=== PATIENT | female | born 1970 | race Caucasian/White ===

== ENCOUNTER 2022-11-27 12:59 | Observation (INO) ==
--- NOTE | 2022-11-27 13:34 | Emergency Department Note ---
History of Present Illness General Chief complaint: Facial Injury/Pain Stated complaint: L SIDE FACIAL PAIN AND SWELLING - TOOTH INFECTED Time Seen by Provider: 11/27/22 13:22 History of Present Illness Maximum Pain Intensity: 7 This is a 52-year-old female that presents to the emergency department via private vehicle with complaints of "left-sided facial pain and swelling, infected tooth". The patient notes that this past Saturday she began with left- sided facial pain and now swelling. She denies any known trauma or injury. She does note trouble eating secondary to pain but is able to tolerate liquids. She was started on penicillin yesterday by her PCP and had 2 tablets yesterday and 1 today. She notes overnight she had increased swelling and pain to the area therefore prompting arrival here today. Current pain 05/27. Home Medications Medication Instructions Recorded Confirmed Type lancets (OneTouch UltraSoft #100 ea 02/09/21 10/05/22 History Lancets) ascorbic acid (vitamin C) 1,000 mg 1 g PO HS 06/15/21 11/27/22 History tablet (Vitamin C) metoprolol succinate 25 mg 75 mg PO HS 08/25/21 11/27/22 History tablet,extended release 24 hr blood sugar diagnostic #300 ea 10/16/21 10/05/22 Rx metformin 500 mg tablet,extended 1,000 mg PO BID #360 tabs 02/09/22 11/27/22 Rx release 24 hr BI-PAP 03/12/22 10/05/22 History cholecalciferol (vitamin D3) 125 125 mcg PO HS 08/29/22 11/27/22 History mcg (5,000 unit) capsule fish,flaxseed oil-e.prim-bcurr 3 cap PO HS 08/29/22 11/27/22 History [Fish, Flax andBorage Oil(Prim)] fluticasone propionate 50 2 spray intranasal DAILY #16 grams 10/05/22 11/27/22 Rx mcg/actuation nasal spray,suspension (Flonase Allergy Relief) levothyroxine 50 mcg tablet 50 mcg PO QAM #90 tabs 10/27/22 11/27/22 Rx (Levoxyl) losartan 50 mg tablet 50 mg PO QAM #90 tabs 11/21/22 11/27/22 Rx penicillin V potassium 500 mg 500 mg PO BID 10 days #20 tabs 11/26/22 11/27/22 Rx tablet tramadol 50 mg tablet 50 mg PO Q8H PRN pain #30 tabs 11/26/22 11/27/22 Rx dulaglutide 0.75 mg/0.5 mL 0.75 mg subcut WK 11/27/22 11/27/22 History subcutaneous pen injector (Trulicity) mecobalamin (vitamin B12) 5,000 5,000 mcg PO QAM 11/27/22 11/27/22 History mcg disintegrating tablet Allergies Allergy/AdvReac Type Severity Reaction Status Date / Time latex Allergy Intermediate Rash Verified 11/27/22 15:35 codeine AdvReac Intermediate hallucinati Verified 11/27/22 15:35 ons Past Med/Surg History Medical History (Updated 11/27/22 @ 16:41 by Gabriel Renner PA-C) Acid reflux Diabetes type 2, uncontrolled Diabetic peripheral neuropathy associated with type 2 diabetes mellitus Diverticulitis Dyslipidemia Hidradenitis suppurativa History of anesthesia reaction BP dropped with endometrial ablation History of COVID-19 diagnosed 2019--mild symptoms, no symptoms now History of kidney stones Hypertension Morbid obesity with BMI of 40.0-44.9, adult TONY (obstructive sleep apnea) bipap at hs Osteoarthritis of knees, bilateral Primary hypothyroidism Surgical History H/O dilation and curettage H/O removal of cyst under R eye History of endometrial ablation History of surgery removal of sweat/hair glands underneath bilateral arms d/t hidradenitis suppurativa History of surgical removal of pilonidal cyst History of wisdom tooth extraction Family History Aunt Breast cancer Grandfather (Maternal) Myocardial infarction Grandmother (Maternal) History of anesthesia reaction Daughter History of anesthesia reaction Denies family history of Ovarian cancer Prostate cancer Colorectal cancer Social History Smoking Status: Current some day smoker Tobacco Type: Cigarettes Age Started Using Tobacco: 15; packs per day: 1; Cigarettes Per Day: 10 a day (advised); Second Hand Exposure: No; Hx Alcohol Use: Yes Alcohol Intake Frequency: Monthly or Less Hx Substance Use: No Preferred Language: Citizen Of [place] Communication Ability: Effective Visual Impairment: No Limitations Hearing Ability: Hard of Hearing Printing Assistant Required: No Beliefs That Will Affect Care: None marital status: Current Living Situation: Family Current Living Situation Comment: lives with , son, daughter, daughter's boyfriend current occupational status: unemployed Feels Safe at Home: Yes Childhood Exposure to Second-Hand Smoke: Yes caffeine: Yes during the past year weight has: remained stable Dental Care, Regularly: No Physical Activity Frequency: Daily Seatbelt Use: always Sunscreen Use: No Assistive Devices: BiPap and Glasses Review of Systems A total of 10 systems reviewed and were otherwise negative Physical Exam Vital Signs Vital Signs - 24 hr 11/27/22 13:05 11/27/22 15:51 11/27/22 16:30 Temperature 36.4 C L Temperature Source Temporal Artery Scan Pulse Rate 104 H Pulse Rate [Right Finger] 82 94 H Pulse Rhythm Regular Respiratory Rate 22 18 20 Respiratory Effort / Characteristics Non-Labored Spontaneous Non-Labored Spontaneous Non-Labored Spontaneous Respiratory Depth Normal Normal Normal Respiratory Pattern Regular Regular Blood Pressure 186/101 H Blood Pressure [Right Arm] 149/90 H 154/99 H Blood Pressure Mean 129 Blood Pressure Mean [Right Arm] 109 117 Blood Pressure Position [Right Arm] Sitting Sitting Pulse Oximetry 97 95 99 Oxygen Delivery Method Room Air Room Air Room Air Sepsis Recent Fever Within 48 Hours No Sepsis New/Unexplained Change in Mental Status No Sepsis Action Taken by Nursing No Action Required VITAL SIGNS - Vital signs and nursing notes were reviewed. Hypertensive, otherwise stable. GENERAL -52-year-old female appearing her stated age who is in no acute distress. Communicates well with provider and answers questions appropriately. SKIN - Without rashes. No meningeal or petechial rash. Left-sided facial edema noted. No erythema. HEAD - NC/AT. EYES - PERRL with EOMI bilaterally. Sclera anicteric. EARS - No deformities of external structures noted on gross examination bilaterally. No pain elicited with palpation of the tragus bilaterally. External auditory canals without discharge or otorrhea. Tympanic membranes pearly cruz without retraction or bulging. No fluid or purulent material visualized behind the TM. Handle of malleus, umbo, cone of light, pars tensa/flaccid all easily visualized. NOSE - Midline and without cyanosis. No epistaxis or purulent drainage noted. Septum midline without deviation or septal hematoma noted. MOUTH/OROPHARYNX - Without perioral cyanosis. Buccal mucosa pink and moist and without leukoplakia. Tongue midline with equal elevation of palate bilaterally. No tonsillar hypertrophy, erythema, or exudates noted. Poor dentition noted. Left upper dentition with multiple caries noted and decay. NECK - Neck with FROM. No evidence of Daniel's angina. No nuchal rigidity. LUNGS - Chest wall symmetric without accessory muscle use, intercostals retractions, or central cyanosis. Normal vesicular breath sounds CTA B/L. No wheezes, rales, or rhonchi appreciated. CARDIAC - RRR with S1/S2. No murmur, rubs, or gallops appreciated. EXTREMITIES - No clubbing or peripheral cyanosis. +5/5 strength noted in UE/LE bilaterally. NEUROLOGIC - Cranial nerves II through XII grossly intact. PSYCH - A&O, and cooperates fully with examiner. Pt is very pleasant and interacts well with examiner. Course Administered Medications Discontinued Medications Acetaminophen (Acetaminophen 500 Mg Tab) 500 mg PO NOW STA Stop: 11/27/22 14:41 Last Admin: 11/27/22 14:44 Dose: 500 mg Documented By: GABRIELA Ampicillin Sodium/Sulbactam Sodium 3,000 mg/ Sodium Chloride 108 mls @ 200 mls/hr IV NOW STA; Protocol Stop: 11/27/22 15:57 Last Infusion: 11/27/22 17:01 Dose: 0 mls/hr Documented By: Admin: 11/27/22 16:15 Dose: 200 mls/hr Documented By: MUKESH Sodium Chloride (Nss 1000ml) 1,000 mls @ 999 mls/hr IV .Q1H1M BHUPENDRA Stop: 11/27/22 16:30 Last Infusion: 11/27/22 17:01 Dose: 0 mls/hr Documented By: Admin: 11/27/22 15:48 Dose: 999 mls/hr Documented By: MUKESH Ioversol (Optiray 350 100ml) 88 ml IV ONCE ONE Stop: 11/27/22 15:22 Last Admin: 11/27/22 15:22 Dose: 88 ml Documented By: DARRIUS Morphine Sulfate (Morphine Sulfate 4 Mg/Ml 1 Ml Carp\\Vial) 4 mg IV NOW STA Stop: 11/27/22 16:29 Last Admin: 11/27/22 16:53 Dose: 4 mg Documented By: VADIM Medical Decision Making Laboratory Data 11/27/22 13:50 11/27/22 13:50 Lab Results 11/27/22 11/27/22 11/27/22 Range/Units 13:50 13:50 15:59 WBC 15.05 H (4.8-10.8) K/ul RBC 4.34 (3.93-5.22) M/uL Hgb 14.0 (12.0-16.0) g/dl Hct 41.6 (34.1-44.9) % MCV 95.9 (80.0-100.0) fL MCH 32.3 (25.0-34.0) pg MCHC 33.7 (32.0-36.0) g/dL RDW Std Deviation 45.7 (36.4-46.3) fL RDW Coeff of Rui 13.0 (11.5-14.5) % Plt Count 345 (130-400) K/uL MPV 10.3 (9.4-12.3) fL Immature Gran % (Auto) 0.4 % Neut % (Auto) 65.1 % Lymph % (Auto) 25.2 % [place] % (Auto) 6.9 % Eos % (Auto) 1.9 % Baso % (Auto) 0.5 % Neut # (Auto) 9.79 H (1.4-6.5) K/uL Lymph # (Auto) 3.80 H (1.2-3.4) K/uL [place] # (Auto) 1.04 H (0.24-0.82) K/uL Eos # (Auto) 0.29 (0-0.50) K/uL Baso # (Auto) 0.07 (0-0.2) K/uL Immature Gran # (Auto) 0.06 H (0.00-0.02) K/uL Sodium 138 (136-145) mmol/L Potassium 4.0 (3.5-5.1) mmol/L Chloride 102 (98-107) mmol/L Carbon Dioxide 26 (21-32) mmol/L Anion Gap 10 (3-11) BUN 11 (6-23) mg/dl Creatinine 0.81 (0.6-1.2) mg/dl Est Cr Clr Drug Dosing 115.0 ml/min Est GFR ( Amer) 98.2 ml/min Est GFR (Non-Af Amer) 84.7 ml/min BUN/Creatinine Ratio 13.6 (10-20) Glucose 167 H (70-99(Fasting)) mg/dl Calcium 10.2 H (8.5-10.1) mg/dl Total Bilirubin 0.4 (0.2-1.0) mg/dl AST 20 (13-39) U/L ALT 38 (7-52) U/L Alkaline Phosphatase 66 (34-104) U/L Total Protein 8.8 H (6.0-8.3) gm/dl Albumin 4.0 (3.4-5.0) gm/dl Globulin 4.8 H (2.5-4.0) gm/dl Albumin/Globulin Ratio 0.8 L (0.9-2) SARS-CoV-2, RNA, NAAT NEGATIVE (NEGATIVE) Imaging Data Radiologist's Impression: Face CT 11/27/22 13:[address] WITH CONTRAST CLINICAL HISTORY: Left sided facial edema, pain. COMPARISON STUDY: Facial CT April 24, 2020. TECHNIQUE: Axial images of the face were obtained following intravenous injection of 88 cc of Optiray 350 IV. Sagittal and coronal reconstructions were viewed. Automated exposure control was utilized for the study. A dose lowering technique was utilized adhering to the principles of ALARA. FINDINGS: Visualized portions of the intracranial contents are unremarkable. Major vasculature of the upper neck is patent. Several mildly enlarged left cervical lymph nodes are likely reactive. Index left level 2 node measures 1.7 x 1.3 cm. Extensive odontogenic disease is noted with numerous dental caries and periapical abscesses. Multiple teeth are absent. There is a 9 mm periapical abscess of the left lateral maxillary incisor with an associated 1 cm rim- enhancing fluid collection with adjacent stranding consistent with an abscess. No additional soft tissue abscesses are present. The epiglottis is normal. IMPRESSION: Extensive odontogenic disease with numerous dental caries and periapical abscesses. Periapical abscess of the left lateral maxillary incisor with an adjacent 1 cm soft tissue abscess and associated cellulitis. ACT 112: Negative or not required by law. Electronically signed by: Mansoor Melo M.D. 11/27/2022 3:45 PM [facility] Narrative Patient was seen and evaluated as above in room D04. Review was performed of triage nursing notes and vital signs. I did review pertinent previous visits and patient history. After obtaining a thorough history and physical examination the above work up was performed. Patient presents to us today with left-sided facial pain and swelling. She is worried this is coming from her teeth. On examination there is edema present o verlying the left anterior face as well as reproducible tenderness to palpation overlying this region. The patient denies any fevers. She does note decreased appetite and food intake secondary to pain. She was started on penicillin yesterday and notes worsening swelling and pain overnight. Options of care were discussed with the patient. IV access was established. Labs were drawn. CT scan was obtained of the face. This reveals extensive odontogenic disease with numerous dental caries and periapical abscesses. Periapical abscess of the left lateral maxillary incisor with an adjacent 1 cm soft tissue abscess and associated cellulitis. There is leukocytosis 15.05. No anemia. No emergent metabolic disturbance. Hyperglycemia 167. At this time I do believe that inpatient management for left-sided facial cellulitis is reasonable. IV Unasyn was ordered as well as IV fluids. She was ordered oral acetaminophen for pain. I did verify she has not taken more than 3000 mg in the past 24 hours. She notes she only had 2 tablets shortly after midnight this past evening. I did discuss the case with the hospitalist service. Please refer to further documentation regarding her stay. GCS: 15 In the evaluation and treatment of this patient, the following differential diagnoses were considered: Periapical Abscess, Osteonecrosis of the Jaw, Dental Fracture, Dental Caries, Daniel's Angina, Vincent's Angina, Facial Cellulitis, among others. Impression & Plan Facial cellulitis, Abscess of face Discharge Plan Visit Data Chief Complaint: Facial Injury/Pain Stated Complaint: L SIDE FACIAL PAIN AND SWELLING - TOOTH INFECTED ED Provider: Layton Katz ED Midlevel Provider: Carlton Sorto Discharge Problem: Facial cellulitis, Abscess of face Patient Disposition: Admitted As Inpatient Condition: Good Discharge Instructions Interventions: ED Discharge Assessment Last Done: 11/27/22 17:25
[2022-11-27 14:34] LABS: Basophils # (auto) 0.07 K/uL (0-0.2); Basophils % (auto) 0.5 %; Eosinophils # (auto) 0.29 K/uL (0-0.50); Eosinophils % (auto) 1.9 %; Hematocrit (blood only) 41.6 % (34.1-44.9); Immature Granulocytes # (auto) 0.06 K/uL (0.00-0.02); Immature Granulocytes % (auto) 0.4 %; Lymphocytes % (auto) 25.2 %; Mean Corpuscular Hemoglobin 32.3 pg (25.0-34.0); Mean Corpuscular Hgb Conc 33.7 g/dL (32.0-36.0); Mean Corpuscular Volume 95.9 fL (80.0-100.0); Mean Platelet Volume 10.3 fL (9.4-12.3); Monocytes # (auto) 1.04 K/uL (0.24-0.82); Monocytes % (auto) 6.9 %; Neutrophils # (auto) 9.79 K/uL (1.4-6.5); Neutrophils % (auto) 65.1 %; Platelet Count 345 K/uL (130-400); RDW Standard Deviation 45.7 fL (36.4-46.3); Red Blood Count 4.34 M/uL (3.93-5.22); White Blood Count 15.05 K/ul (4.8-10.8)
[2022-11-27] MEDS ORDERED: ACETAMINOPHEN 500 MG TAB PO STA (14:40)
[2022-11-27 14:56] LABS: Albumin Globulin Ratio 0.8 (0.9-2); BUN Creatinine Ratio 13.6 (10-20); Bilirubin,Total 0.4 mg/dl (0.2-1.0); Calcium 10.2 mg/dl (8.5-10.1); Est GFR (African American) 98.2 ml/min; Est GFR (Non-African American) 84.7 ml/min; Globulin 4.8 gm/dl (2.5-4.0); Total Protein 8.8 gm/dl (6.0-8.3)
[2022-11-27] MEDS ORDERED: OPTIRAY 350 100ml IV ONE (15:21)
[2022-11-27] MEDS ORDERED: AMPICILLIN/SULBACTAM SOD 3,000 MG in 0.9 % SODIUM CHLORIDE 100 ML IV STA (15:25)
[2022-11-27] MEDS ORDERED: SODIUM CHLORIDE 0.9% 1000ML 1,000 ML IV SCH (15:30)
--- NOTE | 2022-11-27 15:46 | CT Scan Report ---
FACIAL CT WITH CONTRAST CLINICAL HISTORY: Left sided facial edema, pain. COMPARISON STUDY: Facial CT April 24, 2020. TECHNIQUE: Axial images of the face were obtained following intravenous injection of 88 cc of Optiray 350 IV. Sagittal and coronal reconstructions were viewed. Automated exposure control was utilized fo r the study. A dose lowering technique was utilized adhering to the principles of ALARA. FINDINGS: Visualized portions of the intracranial contents are unremarkable. Major vasculature of the upper neck is patent. Several mildly enlarged left cervical lymph nodes are likely reactive. Index l eft level 2 node measures 1.7 x 1.3 cm. Extensive odontogenic disease is noted with numerous dental c valeria and periapical abscesses. Multiple teeth are absent. There is a 9 mm periapical abscess of the left lateral maxillary incisor with an associated 1 cm rim-enhancing fluid collection with adjacent s tranding consistent with an abscess. No additional soft tissue abscesses are present. The epiglottis is normal. IMPRESSION: Extensive odontogenic disease with numerous dental caries and periapical abscesses. Peria pical abscess of the left lateral maxillary incisor with an adjacent 1 cm soft tissue abscess and ass ociated cellulitis. ACT 112: Negative or not required by law. Electronically signed by: Mansoor Melo M.D. 11/27/2022 3:45 PM
[2022-11-27] MEDS ORDERED: MoRPHine SULFATE 4 MG/ML 1 ML CARP\\VIAL IV STA (16:28)
--- NOTE | 2022-11-27 16:34 | History & Physical Report ---
Date of Service November 27, 2022 Assessment & Plan (1) Facial cellulitis: Plan: -Admit to med/tele -The patient is currently afebrile, hemodynamically stable, and stable on RA -Patient noted to have very poor dental hygiene and presented to her PCP yesterday with left facial and dental pain, was started on Penicillin V and tramadol but her pain continued to progress -In the ED today she was noted to have multiple dental caries and a 1 cm lateral maxillary incisor on CT with an elevated white count -S/P one dose of unasyn, tylenol, and 1L NSS bolus in the ED -ENT consulted and will see the patient shortly, agrees with continuing Unasyn and NPO at midnight for OR tomorrow -Pain control with scheduled tylenol as needed for fever/pain (1,2,3), morphine 2mg IV q4h prn pain (4,5,6+) -Will give her one bag of LR when she is NPO at midnight to ensure she is hydrated with recent poor oral intake -AM CBC and CMP (2) Diabetes type 2, uncontrolled: Plan: -Hold Trulicity and metformin -Monitor BSG q6h overnight since she will be NPO for the OR tomorrow -Goal BSG is 110-140 -Will start with 5 units lantus BID for basal coverage -Correction factor of 35 and carb ration of 12 q6h -Adjust as needed -Last A1c was 8.2 on 08/15/22, will order am A1c to continue monitoring (3) Tobacco dependence due to cigarettes: Plan: -Still smoking 1PPD -Encourage cessation -Denies nicotine patches at this time, will order them now in case she changes her mind (4) Dyslipidemia: Plan: -continue statin (5) Primary hypothyroidism: Plan: -Continue levothyroxine (6) TONY (obstructive sleep apnea): Plan: -Normally wears HS bipap but unable to tolerate at this time due to her pain and swelling, will hold for now (7) Hypertension: Plan: -Hemodynamically stable -Continue metoprolol -Will hold losartan for now to prevent hypotension, can resume after her procedure tomorrow if needed (8) Acid reflux: Plan: -IV Protonix daily while admitted for stress ulcer prophylaxis Plan The patient was discussed with Dr. Kuo at the time of the admission History of Present Illness Chief Complaint: Left facial/dental pain Primary Care Provider: Purvi AngeloDO Tiffanie kirkland is a 52 year old female with a PMH significant for Hypothyroidism, TONY, HTN, dyslipidemia, DM II, tobacco use disorder, and morbid obesity who presented to the [facility] on 11/27/22 with a chief complaint of worsening left-sided facial pain/dental pain. In the ED the patient was found to be afebrile, hemodynamically stable, and stable on RA. Labs were significant for a leukocytosis of 15 with absolute neutrophils of 9.79, stable Hgb and platelets, stable cr at 0.81, calcium of 10.2 otherwise stable electrolytes, stable liver function, and covid negative. CT of the face with contrast was read as "Extensive odontogenic disease with numerous dental caries and periapical abscesses. Periapical abscess of the left lateral maxillary incisor with an adjacent 1 cm soft tissue abscess and associated cellulitis.". Prior to admission the patient was given one dose of Unasyn, 500 mg PO tylenol, and 1L NSS. ENT was consulted by the ED and recommended medicine admission for IV antibiotics overnight and OR likely tomorr ow. Per chart review, the patient was seen at her PCP's office yesterday for the same complaint. She was started on Penicillin V and advised to go to the ER if her symptoms worsened despite antibiotic therapy. At the time of the exam the patient was resting comfortably in bed in no acute distress with her sitting bedside. She states that she started to develop pain and swelling over the upper left teeth which has continued to progress and move further up her left cheek. She confirms that she saw her PCP yesterday and did take two doses of the Penicillin V since yesterday. She states that the swelling and pain continued to worsen, which is why she presented to the ED. She states that her pain is currently a 2-3/10 after recently ordering 4 mg IV morphine ordered by the ED. She denies recent fevers, chills, headache, changes in vision, hearing, taste, and smell, chest pain, SOB, cough, abd pain, nausea, vomiting, diarrhea, dysuria, hematuria, and recent falls. She is still smoking approximately 1 pack of cigarettes daily. I spoke to she and her regarding code status, she wishes to be a Full Code. She would want her to make decisions for her if she could not make them herself. Please refer to Dr. Kuo's attestation for any changes to the treatment plan Allergies Allergy/AdvReac Type Severity Reaction Status Date / Time latex Allergy Intermediate Rash Verified 11/27/22 15:35 codeine AdvReac Intermediate hallucinati Verified 11/27/22 15:35 ons Home Medications Medication Instructions Recorded Confirmed Type lancets (OneTouch UltraSoft #100 ea 02/09/21 11/30/22 History Lancets) ascorbic acid (vitamin C) 1,000 mg 1 g PO HS 06/15/21 11/30/22 History tablet (Vitamin C) metoprolol succinate 25 mg 75 mg PO HS 08/25/21 11/30/22 History tablet,extended release 24 hr blood sugar diagnostic #300 ea 10/16/21 11/30/22 Rx metformin 500 mg tablet,extended 1,000 mg PO BID #360 tabs 02/09/22 11/30/22 Rx release 24 hr BI-PAP 03/12/22 11/30/22 History cholecalciferol (vitamin D3) 125 125 mcg PO HS 08/29/22 11/30/22 History mcg (5,000 unit) capsule fish,flaxseed oil-e.prim-bcurr 3 cap PO HS 08/29/22 11/30/22 History [Fish, Flax andBorage Oil(Prim)] fluticasone propionate 50 2 spray intranasal DAILY #16 grams 10/05/22 11/30/22 Rx mcg/actuation nasal spray,suspension (Flonase Allergy Relief) levothyroxine 50 mcg tablet 50 mcg PO QAM #90 tabs 10/27/22 11/30/22 Rx (Levoxyl) losartan 50 mg tablet 50 mg PO QAM #90 tabs 11/21/22 11/30/22 Rx tramadol 50 mg tablet 50 mg PO Q8H PRN pain #30 tabs 11/26/22 11/30/22 Rx dulaglutide 0.75 mg/0.5 mL 0.75 mg subcut WK 11/27/22 11/30/22 History subcutaneous pen injector (Trulicity) mecobalamin (vitamin B12) 5,000 5,000 mcg PO QAM 11/27/22 11/30/22 History mcg disintegrating tablet amoxicillin 875 mg-potassium 1 tab PO Q12H facial infection #20 11/29/22 11/30/22 Rx clavulanate 125 mg tablet tabs chlorhexidine gluconate 0.12 % 15 ml MT BID PRN mouth rinse #0 mL 11/29/22 11/30/22 Rx mouthwash hydrocodone 5 mg-acetaminophen 325 1 tab PO Q4H PRN pain #10 tabs 11/29/22 11/30/22 Rx mg tablet Past Med/Surg History Medical History (Updated 11/29/22 @ 12:37 by Maame Bhatia PA-C) Acid reflux Diabetes type 2, uncontrolled Diabetic peripheral neuropathy associated with type 2 diabetes mellitus Diverticulitis Dyslipidemia Hidradenitis suppurativa History of anesthesia reaction BP dropped with endometrial ablation History of COVID-19 diagnosed 2020--mild symptoms, no symptoms now History of kidney stones Hypertension Morbid obesity with BMI of 40.0-44.9, adult TONY (obstructive sleep apnea) bipap at hs Osteoarthritis of knees, bilateral Primary hypothyroidism Surgical History (Updated 11/28/22 @ 10:06 by Betty Lema RN) H/O dilation and curettage H/O removal of cyst under R eye History of endometrial ablation History of surgery removal of sweat/hair glands underneath bilateral arms d/t hidradenitis suppurativa History of surgical removal of pilonidal cyst History of wisdom tooth extraction Hx of oral surgery (11/28/22) p Incision and Drainage left nasolabial(upper) and lower subperiosteal abscess Removal of teeth 6,7,8,9,10,11,12 and lower teeth 21,22,23,24,25,26,27,28 Family History Aunt Breast cancer Grandfather (Maternal) Myocardial infarction Grandmother (Maternal) History of anesthesia reaction difficulty waking Daughter History of anesthesia reaction under local anesthesia for repair of nerve in her finger--"went unresponsive and had no neurological function for 20 min" ???, slowly came out it Denies family history of Ovarian cancer Prostate cancer Colorectal cancer Social History Smoking Status: Current every day smoker Tobacco Type: Cigarettes Age Started Using Tobacco: 15; packs per day: 1; Cigarettes Per Day: 10 a day (advised); Second Hand Exposure: Yes; Hx Alcohol Use: Yes Alcohol type: beer Alcohol Intake Frequency: Monthly or Le ss Hx Substance Use: No Preferred Language: Welsh Communication Ability: Effective Visual Impairment: No Limitations Hearing Ability: Hard of Hearing Donor Technician Required: No Beliefs That Will Affect Care: None marital status: Current Living Situation: Spouse and Family Current Living Situation Comment: lives with , son, daughter, daughter's boyfriend current occupational status: unemployed Feels Safe at Home: Yes Childhood Exposure to Second-Hand Smoke: Yes caffeine: Yes during the past year weight has: remained stable Dental Care, Regularly: No Physical Activity Frequency: Daily Seatbelt Use: always Sunscreen Use: No Assistive Devices: None Review of Systems Review of Systems: Denies current fever, chills, headache, changes in vision, hearing, taste, and smell, chest pain, SOB, cough, abdominal pain, nausea, vomiting, diarrhea, hematemesis, melena, dysuria, hematuria, and recent falls. All systems have been reviewed and are otherwise negative. Physical Exam Physical Exam: Physical Exam: General: In no acute distress, stated age, chronically ill-appearing, poor hygiene, non-toxic appearing HEENT: Patient with swelling and erythema noted on the left cheek/upper lip which is warm and tender to palpation, multiple dental caries noted throughout the upper and lower jaw, pupils around round, symmetrical, and reactive to light, moist mucus membranes, trachea midline, no thyromegaly Chest/Pulm: No respiratory distress, symmetrical chest expansion, expiratory wheezing noted throughout Cardiac: RRR, no murmurs noted Abdomen: Negative for ascites and bruising, normoactive bowel sounds, soft, non-tender to palpation throughout Musculoskeletal: Symmetrical and without signs of acute trauma, upper and lower extremities with full ROM, no atrophy, spasticity, or flaccidity Extremities: Radial, dorsalis pedis, and posterior tibial pulses are intact and symmetrical, no edema noted in the BL LE's Skin: Warm, dry, no rashes , lesions, or scars noted Neuro: Alert and oriented to person, place, month, year, and president, no focal defects, CN II-XII tested and intact, finger to nose test negative, no tremors noted Psych: No acute distress, calm and cooperative during the exam Results & Data Results & Data ([facility]) Vital Signs (Past 12 Hours) Vital Signs Temp Pulse Pulse Resp BP BP Pulse Ox 11/27/22 15:51 82 18 149/90 H 95 11/27/22 13:05 36.4 C L 104 H 22 186/101 H 97 O2 Del Method 11/27/22 15:51 Room Air 11/27/22 13:05 Room Air Laboratory Results Abnormal lab results 11/27/22 11/27/22 Range/Units 13:50 13:50 WBC 15.05 H (4.8-10.8) K/ul Neut # (Auto) 9.79 H (1.4-6.5) K/uL Lymph # (Auto) 3.80 H (1.2-3.4) K/uL [place] # (Auto) 1.04 H (0.24-0.82) K/uL Immature Gran # (Auto) 0.06 H (0.00-0.02) K/uL Glucose 167 H (70-99(Fasting)) mg/dl Calcium 10.2 H (8.5-10.1) mg/dl Total Protein 8.8 H (6.0-8.3) gm/dl Globulin 4.8 H (2.5-4.0) gm/dl Albumin/Globulin Ratio 0.8 L (0.9-2) Diagnostic Findings Face CT 11/27/22 13:[address] WITH CONTRAST CLINICAL HISTORY: Left sided facial edema, pain. COMPARISON STUDY: Facial CT April 24, 2020. TECHNIQUE: Axial images of the face were obtained following intravenous injection of 88 cc of Optiray 350 IV. Sagittal and coronal reconstructions were viewed. Automated exposure control was utilized for the study. A dose lowering technique was utilized adhering to the principles of ALARA. FINDINGS: Visualized portions of the intracranial contents are unremarkable. M ajor vasculature of the upper neck is patent. Several mildly enlarged left cervical lymph nodes are likely reactive. Index left level 2 node measures 1.7 x 1.3 cm. Extensive odontogenic disease is noted with numerous dental caries and periapical abscesses. Multiple teeth are absent. There is a 9 mm periapical abscess of the left lateral maxillary incisor with an associated 1 cm rim- enhancing fluid collection with adjacent stranding consistent with an abscess. No additional soft tissue abscesses are present. The epiglottis is normal. IMPRESSION: Extensive odontogenic disease with numerous dental caries and periapical abscesses. Periapical abscess of the left lateral maxillary incisor with an adjacent 1 cm soft tissue abscess and associated cellulitis. ACT 112: Negative or not required by law. Electronically signed by: Mansoor Melo M.D. 11/27/2022 3:45 PM ECG Additional Comments: ECG ordered on admission, will follow up when completed Code Status & VTE Plan Code Status Full code VTE Prophylaxis Plan VTE Prophylaxis will be ordered: Yes Supervising Physician Co-Signing Physician Notes I personally saw and examined the patient. I verified all wheeler points and agree with Gabriel Renner PA-C with the following exceptions and/or additions: 52 year old female admission for left facial cellulitis with 1cm soft tissue abscess seen on CT face. O/E A&Ox3, non septic appearing, poor dental dentition with multiple cavities, left sided facial swelling and erythema from lip to below eyelid and around cheek, HS1+2, no murmurs, Chest CTAB, Abdo SNT A/P Facial cellulitis, periapical abscess, facial abscess - Unasyn IV 3g q6h, consult ENT, NPO after midnight PG Care Time/CCT Total # of Minutes Spent Total Time Spent with Patient: Total time spent is greater than 50% in coordination of care (as documented) at patient's floor/unit and/or counseling patient: Coding [place] [address] INT INP/OBS CARE 2/55MIN Patient Type Established Medical Decision Making High Complexity Diagnoses Facial cellulitis L03.211 Diabetes type 2, uncontrolled E11.65 Tobacco dependence due to cigarettes F17.210 Dyslipidemia E78.5 Primary hypothyroidism E03.9 TONY (obstructive sleep apnea) G47.33 Hypertension I10 Acid reflux K21.9
[2022-11-27] MEDS ORDERED: GLUCOSE 40% GEL 15 GM TUBE PO PRN (17:52)
[2022-11-27] MEDS ORDERED: DEXTROSE 50% 50 ML SYRINGE IV PRN (17:52)
[2022-11-27] MEDS ORDERED: CARBOHYDRATES FOR HYPOGLYCEMIA PO PRN (17:52)
[2022-11-27] MEDS ORDERED: GLUCOSE 10 TAB/TUBE PO PRN (17:52)
[2022-11-27] MEDS ORDERED: GLUCAGON FOR INJ 1 MG VIAL SQ PRN (17:52)
[2022-11-27] MEDS: MoRPHine SULFATE 2 MG/ML CARP IV PRN (20:17)
[2022-11-27] MEDS: ASCORBIC ACID 500 MG TAB PO SCH (20:17)
[2022-11-27] MEDS: METOPROLOL SUCC 25MG EXT REL TAB PO SCH (20:18)
[2022-11-27] MEDS: CHOLECALCIFEROL 5,000 UNITS 125 MCG TAB PO SCH (20:18)
[2022-11-27] MEDS: INSULIN ASPART PER UNIT SC SCH (20:30)
[2022-11-27] MEDS: LANTUS PER UNIT CHARGE SQ SCH (20:30)
[2022-11-27] MEDS: AMPICILLIN/SULBACTAM SOD 3,000 MG in 0.9 % SODIUM CHLORIDE 100 ML IV SCH (22:49)
[2022-11-28] MEDS ORDERED: LACTATED RINGER'S 1,000 ML IV SCH
[2022-11-28] MEDS: INSULIN ASPART PER UNIT SC SCH ×6 (00:27→20:56)
--- NOTE | 2022-11-28 00:35 | Oral/Maxillofacial Consult ---
Date of Consultation November 28, 2022 Assessment & Plan (1) Facial cellulitis: (2) Abscess of face: (3) Diabetes type 2, uncontrolled: (4) TONY (obstructive sleep apnea): History of Present Illness Attending Physician: Charan Kuo MD History of Present Illness Oral Maxillofacial Surgery Exam Present Complaint: I have pain/swelling/drainage from my infected upper teeth. Symptoms have been ongoing for a while started on Saturday now upper lip swollen and very painful. 1) Facial cellulitis: Plan: -Admit to med/tele -The patient is currently afebrile, hemodynamically stable, and stable on RA -Patient noted to have very poor dental hygiene and presented to her PCP yesterday with left facial and dental pain, was started on Penicillin V and tramadol but her pain continued to progress -In the ED today she was noted to have multiple dental caries and a 1 cm lateral maxillary incisor on CT with an elevated white count -S/P one dose of Unasyn, Tylenol, and 1L NSS bolus in the ED -OMS consulted and will see the patient shortly, agrees with continuing Unasyn and NPO at midnight for OR tomorrow -Pain control with scheduled Tylenol as needed for fever/pain (1,2,3), morphine 2mg IV q4h prn pain (4,5,6+) -Will give her one bag of LR when she is NPO at midnight to ensure she is hydrated with recent poor oral intake -AM CBC and CMP (2) Diabetes type 2, uncontrolled: Plan: -Hold Trulicity and metformin -Monitor BSG q6h overnight since she will be NPO for the OR tomorrow -Goal BSG is 110-140 -Will start with 5 units lantus BID for basal coverage -Correction factor of 35 and carb ration of 12 q6h -Adjust as needed -Last A1c was 8.2 on 08/15/22, will order am A1c to continue monitoring (3) Tobacco dependence due to cigarettes: Plan: -Still smoking 1PPD -Encourage cessation -Denies nicotine patches at this time, will order them now in case she changes her mind (4) Dyslipidemia: Plan: -continue statin (5) Primary hypothyroidism: Plan: -Continue levothyroxine (6) TONY (obstructive sleep apnea): Plan: -Normally wears HS bipap but unable to tolerate at this time due to her pain and swelling, will hold for now (7) Hypertension: Plan: -Hemodynamically stable -Continue metoprolol -Will hold losartan for now to prevent hypotension, can resume after her procedure tomorrow if needed (8) Acid reflux: Plan: -IV Protonix daily while admitted for stress ulcer prophylaxis Plan admission on mediacl service, IV antibiotics, for OR to drain upper lip abscess and extraction of grossly carious teeth. Oral Exam: Finding--Grossly infected teeth, tender and swollen gingival tissue with deep pocket formation.Teeth are grossly decayed and removal is medically necessary to control the infection Imaging: Face CT 11/27/22 13:[address] WITH CONTRAST CLINICAL HISTORY: Left sided facial edema, pain. FINDINGS: Visualized portions of the intracranial contents are unremarkable. Major vasculature of the upper neck is patent. Several mildly enlarged left cervical lymph nodes are likely reactive. Index left level 2 node measures 1.7 x 1.3 cm. Extensive odontogenic disease is noted with numerous dental caries and periapical abscesses. Multiple teeth are absent. There is a 9 mm periapical abscess of the left lateral maxillary incisor with an associated 1 cm rim-enhancing fluid collection with adjacent stranding consistent with an abscess. No additional soft tissue abscesses are present. The epiglottis is normal. IMPRESSION: Extensive odontogenic disease with numerous dental caries and periapical abscesses. Periapical abscess of the left lateral maxillary incisor with an adjacent 1 cm soft tissue abscess and associated cellulitis. Soft tissue: floor of the mouth, tongue, hard/soft palate, posterior pharyngeal area all with in normal limits, no pathology or abnormal findings noted. Upper mucobuccal fold is swollen, severe periodontal disease. Oral Care: Overall oral care is very poor Occlusion: Class I with missing teeth TMJ exam: No pop, clicking, pain, good ROM, No history of TMJ injury or dysfunction Periodontal exam: There is evidence of significant periodontal pathology. Head/Neck exam: Neck is supple, FROM, Able to extend and flex neck w/o difficulty, no masses, no abnormalities, no airway issues, there is evidence of sleep apnea use of Bi PAP Treatment Plan: Admission and medical w/up To OR in Am to drain the complex mucobuccal fold infection with extraction of the associated teeth Set up with general anesthesia in hospital due to complexity of the procedure NPO 12 midnight I reviewed the treatment plan and consent with the patient and Understanding was expressed. Time was given for questions regarding the surgery, risks and post op care. Discussed alternative to treatment--procedure as planned, Do not do surgery The following teeth are decayed and fractured and removal is indicated CHER: Upper teeth #3,5,7,8,9,10,12 Lower teeth #20,21,23,24,25,26,28,29 Risks discussed: Bleeding,Pain,swelling,infection, dry socket, delayed healing, nerve injury to face,lips,tongue,chin area which could be permanent (rare). TMJ, jaw stiffness, change in bite (rare), ear pain (referred). Sinus problems like fistula or infection. Need to leave a small root fragment in place to avoid injury to nerve or sinus. Relationship of wisdom teeth to nerve/sinus and risk of jaw fracture. Home care reviewed: tooth brushing, rinsing, follow up care with Dr Delacruz. diet=[id number] dental. Discussed activity level, driving/work while on Rx pain Meds. Surgery to be set up for November 28 at 7:30 with [facility] Allergies Allergy/AdvReac Type Severity Reaction Status Date / Time latex Allergy Intermediate Rash Verified 11/27/22 15:35 codeine AdvReac Intermediate hallucinati Verified 11/27/22 15:35 ons Home Medications Medication Instructions Recorded Confirmed Type lancets (OneTouch UltraSoft #100 ea 02/09/21 10/05/22 History Lancets) ascorbic acid (vitamin C) 1,000 mg 1 g PO HS 06/15/21 11/27/22 History tablet (Vitamin C) metoprolol succinate 25 mg 75 mg PO HS 08/25/21 11/27/22 History tablet,extended release 24 hr blood sugar diagnostic #300 ea 10/16/21 10/05/22 Rx metformin 500 mg tablet,extended 1,000 mg PO BID #360 tabs 02/09/22 11/27/22 Rx release 24 hr BI-PAP 03/12/22 10/05/22 History cholecalciferol (vitamin D3) 125 125 mcg PO HS 08/29/22 11/27/22 History mcg (5,000 unit) capsule fish,flaxseed oil-e.prim-bcurr 3 cap PO HS 08/29/22 11/27/22 History [Fish, Flax andBorage Oil(Prim)] fluticasone propionate 50 2 spray intranasal DAILY #16 grams 10/05/22 11/27/22 Rx mcg/actuation nasal spray,suspension (Flonase Allergy Relief) levothyroxine 50 mcg tablet 50 mcg PO QAM #90 tabs 10/27/22 11/27/22 Rx (Levoxyl) losartan 50 mg tablet 50 mg PO QAM #90 tabs 11/21/22 11/27/22 Rx penicillin V potassium 500 mg 500 mg PO BID 10 days #20 tabs 11/26/22 11/27/22 Rx tablet tramadol 50 mg tablet 50 mg PO Q8H PRN pain #30 tabs 11/26/22 11/27/22 Rx dulaglutide 0.75 mg/0.5 mL 0.75 mg subcut WK 11/27/22 11/27/22 History subcutaneous pen injector (Trulicity) mecobalamin (vitamin B12) 5,000 5,000 mcg PO QAM 11/27/22 11/27/22 History mcg disintegrating tablet Patient History Medical History Acid reflux Diabetes type 2, uncontrolled Diabetic peripheral neuropathy associated with type 2 diabetes mellitus Diverticulitis Dyslipidemia Hidradenitis suppurativa History of anesthesia reaction BP dropped with endometrial ablation History of COVID-19 diagnosed 2019--mild symptoms, no symptoms now History of kidney stones Hypertension Morbid obesity with BMI of 40.0-44.9, adult TONY (obstructive sleep apnea) bipap at hs Osteoarthritis of knees, bilateral Primary hypothyroidism Surgical History H/O dilation and curettage H/O removal of cyst under R eye History of endometrial ablation History of surgery removal of sweat/hair glands underneath bilateral arms d/t hidradenitis suppurativa History of surgical removal of pilonidal cyst History of wisdom tooth extraction Family History Aunt Breast cancer Grandfather (Maternal) Myocardial infarction Grandmother (Maternal) History of anesthesia reaction difficulty waking Daughter History of anesthesia reaction under local anesthesia for repair of nerve in her finger--"went unresponsive and had no neurological function for 20 min" ???, slowly came out it Denies family history of Ovarian cancer Prostate cancer Colorectal cancer Social History Smoking Status: Current every day smoker Tobacco Type: Cigarettes Age Started Using Tobacco: 15; packs per day: 1; Cigarettes Per Day: 10 a day (advised); Second Hand Exposure: Yes; Do You Dip or Chew Tobacco: No; Tobacco Cessation Education Requested by Patient: No Hx Alcohol Use: Yes Alcohol type: beer Alcohol Intake Frequency: Monthly or Less Hx Substance Use: No Preferred Language: [place] Citizen Communication Ability: Effective Visual Impairment: No Limitations Hearing Ability: Hard of Hearing Materials Planner/Production Planner Required: No Beliefs That Will Affect Care: None marital status: Current Living Situation: Spouse and Family Current Living Situation Comment: lives with , son, daughter, daughter's boyfriend current occupational status: unemployed Other Information That Helps Us Care for You: No Feels Safe at Home: Yes Safety Concerns: Feels Safe At This Time Childhood Exposure to Second-Hand Smoke: Yes caffeine: Yes during the past year weight has: remained stable Dental Care, Regularly: No Physical Activity Frequency: Daily Seatbelt Use: always Sunscreen Use: No Assistive Devices: Cane Physical Exam Physical Exam: Physical Exam Constitutional WD/WN, vitals as above Eyes PERRL, conjunctivae normal, anicteric sclerae Mouth infection and many carious infected teeth, sleep apnea Neck trachea midline, no thyromegaly, very thick and short neck Thyroid: normal thyroid Respiratory normal respiratory effort, lungs clear to auscultation Auscultation: lungs clear to auscultation bilaterally Cardiovascular RRR, no murmur, no edema Rate/Rhythm: regular rate and regular rhythm Gastrointestinal (Abdomen) normal bowel sounds, soft, nontender, no hepatosplenomegaly Musculoskeletal no cyanosis or clubbing, extremities motor strength 5/5 Skin no rashes, warm and dry Neurologic PERRL, EOMI, accommodation nl, no face palsy, no dysarthria Cranial Nerves: sense of smell intact, PERRL, normal accommodation, EOM intact bilaterally, normal facial strength, tongue midline, normal gag reflex, normal hearing, able to rotate head bilaterally, able to elevate shoulders bilaterally, no nystagmus and symmetric palate elevation Psychiatric A+Ox3, euthymic affect Orientation: cooperative Lymphatic no cervical or axillary lymphadenopathy, see CT for remort of reactive nodes cervical chain Results & Data ([facility]) Vital Signs (Past 12 Hours) Vital Signs Temp Pulse Pulse Resp BP BP Pulse Ox 11/27/22 23:36 36.9 C 80 20 156/88 H 95 11/27/22 19:20 87 11/27/22 18:26 36.7 C 84 20 151/89 H 97 11/27/22 18:25 87 11/27/22 16:30 94 H 20 154/99 H 99 11/27/22 15:51 82 18 149/90 H 95 11/27/22 13:05 36.4 C L 104 H 22 186/101 H 97 O2 Del Method 11/27/22 23:36 Room Air 11/27/22 19:20 11/27/22 18:26 Room Air 11/27/22 18:25 11/27/22 16:30 Room Air 11/27/22 15:51 Room Air 11/27/22 13:05 Room Air PG Care Time/CCT Total # of Minutes Spent Total Time Spent with Patient: Total time spent is greater than 50% in coordination of care (as documented) at patient's floor/unit and/or counseling patient: Coding Level of Care Code INP/OBS CONSULT LVL 2, 35 MIN Diagnoses Facial cellulitis L03.211 Abscess of face L02.01 Diabetes type 2, uncontrolled E11.65 TONY (obstructive sleep apnea) G47.33
[2022-11-28] MEDS: ACETAMINOPHEN 325 MG TAB PO PRN (03:22)
[2022-11-28] MEDS: AMPICILLIN/SULBACTAM SOD 3,000 MG in 0.9 % SODIUM CHLORIDE 100 ML IV SCH ×4 (04:57→21:37)
[2022-11-28] MEDS ORDERED: GLYCOPYRROLATE 0.2 MG/ML VIAL ONE ×2 (06:35→08:21)
[2022-11-28] MEDS ORDERED: DEXAMETHASONE SOD INJ 4 MG/ML VIAL ONE (06:35)
[2022-11-28] MEDS ORDERED: PROPOFOL IV EMULSION 10 MG/ML 20 ML VIAL IV ONE (06:35)
[2022-11-28] MEDS ORDERED: NEOSTIGMINE METHYLSULFATE 1 MG/ML 10ML VIAL ONE (06:35)
[2022-11-28] MEDS ORDERED: ONDANSETRON INJ 2 MG/ML 2 ML VIAL ONE (06:35)
[2022-11-28] MEDS ORDERED: MIDAZOLAM HCL 1 MG/ML 2ML VIAL ONE (06:36)
[2022-11-28] MEDS ORDERED: fentaNYL citrate 100 MCG/2 ML VIAL ONE (06:36)
[2022-11-28] MEDS ORDERED: ROCURONIUM BROMIDE 10 MG/ML 5 ML VIAL IV ONE (06:42)
[2022-11-28] MEDS ORDERED: LIDOCAINE 2% MPF LOCAL 5 ML VIAL INFIL ONE (06:42)
[2022-11-28] MEDS ORDERED: OXYMETAZOLINE 0.05% 30 ML BTL ONE (06:48)
[2022-11-28] MEDS ORDERED: BUPIVACAINE/EPINEPHRINE 0.5% 1:200,000 1.8 ML CARP ONE ×2 (06:57→08:28)
[2022-11-28] MEDS ORDERED: CHLORHEXIDINE GLUCONATE 0.12% 480 ML MT ONE (06:57)
[2022-11-28 07:18] LABS: Hematocrit (blood only) 38.2 % (34.1-44.9); Hemoglobin 13.4 g/dl (12.0-16.0); Mean Corpuscular Hemoglobin 32.8 pg (25.0-34.0); Mean Corpuscular Hgb Conc 35.1 g/dL (32.0-36.0); Mean Corpuscular Volume 93.4 fL (80.0-100.0); Mean Platelet Volume 10.3 fL (9.4-12.3); Platelet Count 351 K/uL (130-400); RDW Coefficient of Variation 13.2 % (11.5-14.5); RDW Standard Deviation 45.1 fL (36.4-46.3); Red Blood Count 4.09 M/uL (3.93-5.22); White Blood Count 15.52 K/ul (4.8-10.8)
--- NOTE | 2022-11-28 07:24 | Anesthesiology Consultation ---
Date of Service November 28, 2022 Assessment & Plan Chart Review Chart Review: Acceptable Risk for Surgery and Patient NOT seen in Pre Admission Testing Consults Requested none ASA ASA4 Proposed Anesthesia Anesthesia Type: General History Surgery Operation Date: 11/28/22 07:30 Proposed Procedures p Upper Lip Incision and Drainage - Anshul Delacruz DMD s Extraction of Multiple Teeth - Anshul Delacruz DMD Height/Weight Height: 5 ft 7 in Weight: 129.3 kg Allergies Allergy/AdvReac Type Severity Reaction Status Date / Time latex Allergy Intermediate Rash Verified 11/27/22 15:35 codeine AdvReac Intermediate hallucinati Verified 11/27/22 15:35 ons Medications Home Medications Medication Instructions Recorded Confirmed Last Taken lancets (OneTouch UltraSoft #100 ea 02/09/21 10/05/22 Unknown Lancets) ascorbic acid (vitamin C) 1,000 mg 1 g PO HS 06/15/21 11/27/22 11/26/22 tablet (Vitamin C) metoprolol succinate 25 mg 75 mg PO HS 08/25/21 11/27/22 11/26/22 tablet,extended release 24 hr blood sugar diagnostic #300 ea 10/16/21 10/05/22 Unknown metformin 500 mg tablet,extended 1,000 mg PO BID #360 tabs 02/09/22 11/27/22 11/26/22 release 24 hr BI-PAP 03/12/22 10/05/22 Unknown cholecalciferol (vitamin D3) 125 125 mcg PO HS 08/29/22 11/27/22 11/26/22 mcg (5,000 unit) capsule fish,flaxseed oil-e.prim-bcurr 3 cap PO HS 08/29/22 11/27/22 09/09/22 [Fish, Flax andBorage Oil(Prim)] fluticasone propionate 50 2 spray intranasal DAILY #16 grams 10/05/22 11/27/22 11/27/22 mcg/actuation nasal spray,suspension (Flonase Allergy Relief) levothyroxine 50 mcg tablet 50 mcg PO QAM #90 tabs 10/27/22 11/27/22 11/26/22 (Levoxyl) losartan 50 mg tablet 50 mg PO QAM #90 tabs 11/21/22 11/27/22 11/27/22 penicillin V potassium 500 mg 500 mg PO BID 10 days #20 tabs 11/26/22 11/27/22 11/27/22 08:00 tablet tramadol 50 mg tablet 50 mg PO Q8H PRN pain #30 tabs 11/26/22 11/27/22 11/26/22 dulaglutide 0.75 mg/0.5 mL 0.75 mg subcut WK 11/27/22 11/27/22 Unknown subcutaneous pen injector (Trulicity) mecobalamin (vitamin B12) 5,000 5,000 mcg PO QAM 11/27/22 11/27/22 11/27/22 mcg disintegrating tablet Active Medications Generic Name Dose Route Start Last Admin Trade Name Freq PRN Reason Stop Dose Admin Acetaminophen 650 mg 11/27/22 17:52 11/28/22 03:22 Acetaminophen 325 Mg Tab PO 12/27/22 17:51 650 mg Q4H PRN Administration Pain (1,2,3) Or Fever, Ascorbic Acid 1,000 mg 11/27/22 21:00 11/27/22 20:17 Ascorbic Acid 500 Mg Tab PO 12/27/22 20:59 1,000 mg HS BHUPENDRA Administration Lactated Ringer's 1,000 mls @ 80 mls/hr 11/28/22 00:00 11/27/22 22:57 Lr IV 11/28/22 12:29 80 mls/hr .[id number] BHUPENDRA Administration Ampicillin Sodium/Sulbactam 108 mls @ 200 mls/hr 11/27/22 22:00 11/28/22 05:45 Sodium 3,000 mg/ Sodium IV 12/04/22 21:59 Infused Chloride Q6H BHUPENDRA Infusion Protocol Insulin Aspart 0 units 11/27/22 18:00 11/28/22 06:16 Insulin Aspart Per Unit SC 12/27/22 17:59 2 units Q6 BHUPENDRA Administration Insulin Glargine 5 units 11/27/22 21:00 11/27/22 20:30 Lantus Per Unit Charge SQ 12/27/22 20:59 5 units BID BHUPENDRA Administration Metoprolol Succinate 75 mg 11/27/22 21:00 11/27/22 20:18 Metoprolol Succ 25mg Ext Rel Tab PO 12/27/22 20:59 75 mg HS BHUPENDRA Administration Morphine Sulfate 2 mg 11/27/22 17:52 11/27/22 20:17 Morphine Sulfate 2 Mg/Ml Carp IV 12/11/22 17:51 2 mg Q4H PRN Administration Pain (4,5,6+) Vitamin D 5,000 units 11/27/22 21:00 11/27/22 20:18 Cholecalciferol 5,000 Units 125 Mcg Tab PO 12/27/22 20:59 5,000 units HS BHUPENDRA Administration Past Medical History Medical History Acid reflux Diabetes type 2, uncontrolled Diabetic peripheral neuropathy associated with type 2 diabetes mellitus Diverticulitis Dyslipidemia Hidradenitis suppurativa History of anesthesia reaction BP dropped with endometrial ablation History of COVID-19 diagnosed 2020--mild symptoms, no symptoms now History of kidney stones Hypertension Morbid obesity with BMI of 40.0-44.9, adult TONY (obstructive sleep apnea) bipap at hs Osteoarthritis of knees, bilateral Primary hypothyroidism Exercise / Class Metabolic Activity III < 4 Walking/Shop/Light housework Past Family History Family History Aunt Breast cancer Grandfather (Maternal) Myocardial infarction Grandmother (Maternal) History of anesthesia reaction difficulty waking Daughter History of anesthesia reaction under local anesthesia for repair of nerve in her finger--"went unrespon sive and had no neurological function for 20 min" ???, slowly came out it Denies family history of Ovarian cancer Prostate cancer Colorectal cancer Past Surgical History Surgical History H/O dilation and curettage H/O removal of cyst under R eye History of endometrial ablation History of surgery removal of sweat/hair glands underneath bilateral arms d/t hidradenitis suppurativa History of surgical removal of pilonidal cyst History of wisdom tooth extraction Past Anesthesia History No Hx of Anesthesia Complications and No Family Hx of Anesthesia Complications History of PONV No Hx of PONV and No Hx of Motion Sickness Social History Smoking Status: Current every day smoker tobacco type: cigarettes Smoking cigarettes per day: 10 a day (advised) Do You Dip or Chew Tobacco: No Hx Alcohol Use: Yes Alcohol type: beer alcohol intake frequency: a few times a week Hx Substance Use: No substance use type: does not use Physical Exam Vital Signs Last Vital Signs Temp 36.8 C 11/28/22 03:00 Pulse 81 11/28/22 03:00 Resp 16 11/28/22 03:00 BP 135/78 11/28/22 03:00 Pulse Ox 96 11/28/22 03:00 O2 Del Method 11/28/22 03:00 Testing Laboratory Results 11/28/22 06:22 11/28/22 11/28/22 11/27/22 06:10 00:19 20:25 POC Glucose 189 H 177 H 201 H Electrocardiogram Date: 11/28/22 Findings: + NSR @ (@ 69)
--- NOTE | 2022-11-28 07:35 | History & Physical Bridge Note ---
Date of Service November 28, 2022 History & Physical Bridge Note I have examined the patient, reviewed the History & Physical and in the interval since the performance of the History & Physical I have noted the following changes of clinical significance: no changes noted OK for I&D with extractions of infected teeth
[2022-11-28 07:43] LABS: Albumin Globulin Ratio 0.9 (0.9-2); Albumin Level 3.8 gm/dl (3.4-5.0); Bilirubin,Total 0.5 mg/dl (0.2-1.0); Calcium 9.4 mg/dl (8.5-10.1); Creatinine Clr Calc Pharmacy 117.8 ml/min; Est GFR (African American) 99.6 ml/min; Globulin 4.1 gm/dl (2.5-4.0); Total Protein 7.9 gm/dl (6.0-8.3)
[2022-11-28] MEDS ORDERED: PROMETHAZINE HCL 12.5 MG in SODIUM CHLORIDE 0.9% 50 ML IV PRN (08:17)
[2022-11-28] MEDS ORDERED: LABETALOL HCL IV 5 MG/ML 20ML IV PRN (08:17)
[2022-11-28] MEDS ORDERED: NALOXONE HCL 0.4 MG/1 ML VIAL/CARP IV PRN (08:17)
[2022-11-28] MEDS ORDERED: ATROPINE SULFATE 0.1 MG/ML 10ML SYR IV PRN (08:17)
[2022-11-28] MEDS ORDERED: ONDANSETRON INJ 2 MG/ML 2 ML VIAL IV PRN (08:17)
[2022-11-28] MEDS ORDERED: ePHEDrine sulfate 50 MG/ML AMP IV PRN (08:17)
[2022-11-28] MEDS ORDERED: fentaNYL citrate 100 MCG/2 ML VIAL IV PRN (08:17)
[2022-11-28] MEDS ORDERED: FLUMAZENIL 0.1 MG/1 ML 10 ML VIAL IV PRN (08:17)
[2022-11-28] MEDS ORDERED: CHLORHEXIDINE GLUCONATE 0.12% 480 ML MT PRN (09:31)
--- NOTE | 2022-11-28 09:31 | Operative Report ---
PG Post Operative Report Pre & Post Diagnosis Operation Date: 11/28/22 07:30 <No data on this case meets the specified criteria> I identified the patient and participated in the time-out.: Yes Procedure Operation Date: 11/28/22 07:30 <No data on this case meets the specified criteria> Surgeon Anshul Delacruz, DMD Plasterer Helper none Estimated Blood Loss 6 Findings Consistent with Post-Op Diagnosis grossly infected upper lip and nasolabial fold Specimens I&D left maxilla and nasolabial fold Drains none Complications none Indications facial infection Description of Procedure Actual Procedures p Incision and Drainage left nasolabial(upper) and lower subperiosteal abscess Removal of teeth 6,7,8,9,10,11,12 and lower teeth 21,22,23,24,25,26,27,28 Facial cellulitis L03.211 Abscess of face L02.01 Diabetes type 2, uncontrolled E11.65 TONY (obstructive sleep apnea) G47.33 CPT 32570 CPT 67261 [id number] X 15 Once cleared for surgery general anesthesia was achieved, the eyes were protected by the anesthesia dept criteria. A time out was take for patient ID, antibiotics, equipment and position verification once all agreed the procedure began. Local anesthesia using Marcaine with a vasoconstrictor ( 1.8 ml per site) given into right/left inferior alveolar nerve and maxillary anterior mucobuccal folds A throat pack was placed after the oral cavity was irrigated with saline. Once a surgical level of anesthesia was obtained and the local anesthesia was given time for the blocks the surgery was started. I turned my attention to the infection which was located in the anterior submental area and left nasolabial fold UPPER: Incision and Drainage upper nasal maxillary and vestibular fold area CPT 00695 Using a 15 blade an incision was made high in the mucobuccal fold left side Once the incision was made a lot of pus extruded from the site. This drainage was cultured for anaerobic and aerobic bacteria. A curved hemostat was carefully placed into the infected space along the nasal aspect of the maxilla and into the infraorbital space. Some further drainage was now allowed to escape. I palpated the cheek and vestibular area area and no further drainage was expressed. The area was irrigated with at least 100 ml of NS solution. I now turned my attention to remove the grossly carious upper anterior teeth Upper teeth # 6,7,8,9,10,11,12 ([id number] x 7) An Incision was made along the infected gingival tissue from tooth # 5- 13. The full thickness flap was reflected, bone removed with a rongeur, the teeth were visualized, and removed with an 81 elevator and dental forceps. Bony margins were trimmed, smoothed and sutured closed with a 2-0 chromic, the I and D site was left open to allow dependent drainage. There was no sinus involvement. There was a large defect in the bone associated with the infection in area 10-11 this site was curetted to remove the infected tissue. There was no further drainage. LOWER: Incision and Drainage of the submental and subperiosteal fold anterior mandibular area CPT 37342 Using a 15 blade an incision was made in the gingival tissue from tooth # 20-29 care was taken to avoid the duct of the submandibular gland in the floor of the mouth. Once the incision was made a lot of pus extruded from the site. A curved hemostat was carefully placed into the infected space along the medial side of the lower jaw and into the submental space. Some further drainage was now allowed to escape. I palpated the chin and submental area and no further drainage was expressed. The area was irrigated with at least 100 ml of NS solution. I now turned my attention to remove the infected periodontally involved lower teeth Lower # 21,22,23,24,25,26,27,28 ([id number] x 8) The full thick Muco-periosteal flap was made on the facial aspect from # 26-30. The flap was reflected to expose the the subperiosteal space the bone adjacent to # 28. The rogue was used to remove bone, the tooth was removed with a 301 elevator, the mental nerve was intact, there was a large amount of granulation tissue on the apex and some more pus that was expressed. Once the I and D and extractions were completed I inspected the sites to insure all bleeding was controlled. I removed the throat pack and suctioned the throat. Bilateral gauze pressure dressings were placed. All instrument and sponge count was correct. the patient was allowed to awake from the anesthesia. Once full awake the anesthesia tube was removed and the patient was taken to the recovery room with all vital sign stable. The patient tolerated the surgery very well. I will follow the patient in my office, Rx and instructions will be given upon discharge. I attest to the content of the Intraoperative Record and any orders documented therein. Any exceptions are noted below.
[2022-11-28 09:45] LABS: Estimated Average Glucose 189 mg/dl; Hemoglobin A1C 8.2 % (4.5-5.6)
[2022-11-28] MEDS ORDERED: PANTOprazole 40 MG in SYRINGE 0 ML IV SCH (11:00)
--- NOTE | 2022-11-28 11:23 | Electrocardiogram Report ---
Test Reason : Blood Pressure : / mmHG Vent. Rate : 069 BPM Atrial Rate : 069 BPM P-R Int : 136 ms QRS Dur : 090 ms QT Int : 398 ms P-R-T Axes : 051 -10 042 degrees QTc Int : 426 ms Normal sinus rhythm Normal ECG When compared with ECG of 14-JUN-2021 21:34, Vent. rate has decreased BY 51 BPM Confirmed by Marquis Solomon ([id number]) on 11/28/2022 11:22:52 AM Referred By: REFERRED SELF Confirmed By:Marquis Solomon
[2022-11-28] MEDS: MoRPHine SULFATE 2 MG/ML CARP IV PRN ×2 (11:52→22:38)
[2022-11-28] MEDS: FLUTICASONE PROPIONATE NA SPR 16 GM BTL NAE SCH (11:54)
[2022-11-28] MEDS: LANTUS PER UNIT CHARGE SQ SCH ×2 (12:04→20:53)
[2022-11-28] MEDS: LEVOTHYROXINE SODIUM 50 MCG TABLET PO SCH (12:31)
--- NOTE | 2022-11-28 12:57 | Anesthesiology Progress Note ---
Date of Service November 28, 2022 Anesthesia Post Procedure Vital Signs Vital Signs: Temp Pulse Pulse Pulse Pulse Resp BP 11/28/22 11:00 36.5 C 79 20 11/28/22 10:49 80 11/28/22 10:30 36.7 C 78 20 11/28/22 10:00 37.0 C 77 18 11/28/22 09:45 36.9 C 79 20 11/28/22 09:35 88 16 11/28/22 09:25 87 20 11/28/22 09:16 36.0 C L 91 H 18 11/28/22 07:50 70 11/28/22 07:31 36.8 C 85 20 11/28/22 03:00 36.8 C 81 16 11/27/22 22:00 79 11/27/22 23:36 36.9 C 80 20 11/27/22 19:20 87 11/27/22 18:26 36.7 C 84 20 11/27/22 18:25 87 11/27/22 16:30 94 H 20 11/27/22 15:51 82 18 11/27/22 13:05 36.4 C L 104 H 22 186/101 H BP Pulse Ox O2 Del Method O2 Flow Rate 11/28/22 11:00 167/103 H 93 Room Air 11/28/22 10:49 11/28/22 10:30 165/93 H 93 Room Air 11/28/22 10:00 153/90 H 95 Nasal Cannula 2 11/28/22 09:45 153/98 H 97 Nasal Cannula 2 11/28/22 09:35 148/96 H 97 Oxymask 4 11/28/22 09:25 137/88 94 Oxymask 4 11/28/22 09:16 143/85 H 96 Oxymask 6 11/28/22 07:50 11/28/22 07:31 167/90 H 96 Room Air 11/28/22 03:00 135/78 96 Room Air 11/27/22 22:00 11/27/22 23:36 156/88 H 95 Room Air 11/27/22 19:20 11/27/22 18:26 151/89 H 97 Room Air 11/27/22 18:25 11/27/22 16:30 154/99 H 99 Room Air 11/27/22 15:51 149/90 H 95 Room Air 11/27/22 13:05 97 Room Air Pain Intensity Left Face: Pain Intensity: 3 Transfer of Care Handoff Completed per policy Notes Mental Status: alert / awake / arousable Patient Amnestic to Procedure: Yes Nausea / Vomiting: adequately controlled Pain: adequately controlled Airway Patency, RR, SpO2: stable & adequate BP & HR: stable & adequate Hydration State: stable & adequate Anesthetic Complications: no major complications apparent
--- NOTE | 2022-11-28 13:55 | Hospitalist Progress Note ---
Date of Service November 28, 2022 Assessment & Plan (1) Facial cellulitis: Plan: Due to periodontal disease. She had oral surgery today with incision and drainage of upper and lower abscesses and extraction of multiple upper and lower teeth. She is now on intravenous Unasyn. [place]rec[place] [facility] [place]. Pain control measures. Oral hygiene. Serial labs (2) Diabetes type 2, uncontrolled: Plan: Holding Trulicity and metformin while hospitalized. Sliding scale coverage. B triny insulin twice daily for now. ADA diet when able to take p.o. (3) Tobacco dependence due to cigarettes: Plan: Still smoking 1PPD. Encouraged cessation. Nicotine patches if requested (4) Dyslipidemia: Plan: continue statin therapy (5) Primary hypothyroidism: Plan: continue levothyroxine replacement therapy (6) TONY (obstructive sleep apnea): Plan: Normally wears HS bipap but unable to tolerate at this time due to her pain and swelling. Will hold for now (7) Hypertension: Plan: Hemodynamically stable . Continue metoprolol and losartan (8) Acid reflux: Plan: PPI therapy Plan Anticipate eventual discharge back to home later this week on oral antibiotic Admission and Anticipated Discharge Date Admission Date: November 27, 2022 Subjective The patient was seen postoperatively. She had incision and drainage of the periodontal abscesses and extraction of multiple upper and lower teeth. She is awake and alert but having some oral discomfort as expected. She remains on intravenous Unasyn. Review of Systems Review of Systems: Constitutional-no fever or chills ENT-postoperative oral pain as expected. No blurred vision, no double vision, no epistaxis, no sore throat Respiratory-no cough, no wheezing, no shortness of breath Cardiac-no palpitations, no chest pain, no syncope GI-no nausea, vomiting, diarrhea, melena, hematochezia -no urinary retention, no urinary incontinence, no dysuria, no hematuria Musculoskeletal-no joint pain, no muscle tenderness Skin-no bruising, no rashes, no pruritus Neuro-no isolated weakness, no paresthesia, no weakness Psych-no depression, no anxiety Physical Exam Physical Exam: General- alert and oriented x3. No fevers, no chills HEENT- pupils equal and reactive to light, extraocular muscles intact. No active bleeding from multiple upper and lower tooth extraction sites or incision and drainage sites. She does have left facial erythema and edema from cellulitis Neck-no lymphadenopathy or thyromegaly, trachea midline Chest-clear to auscultation percussion. No rales wheezing or rhonchi Cardiac-regular rate and rhythm, normal S1 and S2 Abdomen-normal bowel sounds, nontender, no hepatosplenomegaly Extremities-no cyanosis, clubbing, or edema Neuro-cranial nerves II through XII intact, motor and sensory function within normal limits, strength symmetrical , no focal deficits Psych-normal affect, normal mood Results & Data Results & Data ([facility]) Vital Signs (Past 12 Hours) Vital Signs Temp Pulse Pulse Pulse Pulse Resp BP 11/28/22 11:00 36.5 C 79 20 167/103 H 11/28/22 10:49 80 11/28/22 10:30 36.7 C 78 20 165/93 H 11/28/22 10:00 37.0 C 77 18 153/90 H 11/28/22 09:45 36.9 C 79 20 153/98 H 11/28/22 09:35 88 16 148/96 H 11/28/22 09:25 87 20 137/88 11/28/22 09:16 36.0 C L 91 H 18 143/85 H 11/28/22 07:50 70 11/28/22 07:31 36.8 C 85 20 167/90 H 11/28/22 03:00 36.8 C 81 16 135/78 Pulse Ox O2 Del Method O2 Flow Rate 11/28/22 11:00 93 Room Air 11/28/22 10:49 11/28/22 10:30 93 Room Air 11/28/22 10:00 95 Nasal Cannula 2 11/28/22 09:45 97 Nasal Cannula 2 11/28/22 09:35 97 Oxymask 4 11/28/22 09:25 94 Oxymask 4 11/28/22 09:16 96 Oxymask 6 11/28/22 07:50 11/28/22 07:31 96 Room Air 11/28/22 03:00 96 Room Air Laboratory Results 11/28/22 06:22 11/28/22 06:22 PG Care Time/CCT Total # of Minutes Spent Total Time Spent with Patient: Total time spent is greater than 50% in coordination of care (as documented) at patient's floor/unit and/or counseling patient: Coding Level of Care Code 90613 SUB INP/OBS CARE 3/50MIN Diagnoses Facial cellulitis L03.211 Diabetes type 2, uncontrolled E11.65 Tobacco dependence due to cigarettes F17.210 Dyslipidemia E78.5 Primary hypothyroidism E03.9 TONY (obstructive sleep apnea) G47.33 Hypertension I10 Acid reflux K21.9
[2022-11-28] MEDS: LOSARTAN POTASSIUM 50 MG TAB PO SCH (17:56)
[2022-11-28] MEDS ORDERED: Nursing to Pharmacy Communication SCH (19:00)
[2022-11-28] MEDS: ASCORBIC ACID 500 MG TAB PO SCH (20:58)
[2022-11-28] MEDS: CHOLECALCIFEROL 5,000 UNITS 125 MCG TAB PO SCH (20:58)
[2022-11-28] MEDS: METOPROLOL SUCC 25MG EXT REL TAB PO SCH (20:58)
[2022-11-29] MEDS: AMPICILLIN/SULBACTAM SOD 3,000 MG in 0.9 % SODIUM CHLORIDE 100 ML IV SCH ×2 (04:40→10:11)
[2022-11-29 06:10] LABS: Hematocrit (blood only) 37.4 % (34.1-44.9); Hemoglobin 12.8 g/dl (12.0-16.0); Mean Corpuscular Hgb Conc 34.2 g/dL (32.0-36.0); Mean Corpuscular Volume 93.5 fL (80.0-100.0); Mean Platelet Volume 10.1 fL (9.4-12.3); Platelet Count 335 K/uL (130-400); RDW Coefficient of Variation 12.9 % (11.5-14.5); RDW Standard Deviation 44.8 fL (36.4-46.3); White Blood Count 14.17 K/ul (4.8-10.8)
[2022-11-29 06:28] LABS: Albumin Globulin Ratio 0.8 (0.9-2); Albumin Level 3.6 gm/dl (3.4-5.0); BUN Creatinine Ratio 7.6 (10-20); Bilirubin,Total 0.6 mg/dl (0.2-1.0); Calcium 9.6 mg/dl (8.5-10.1); Creatinine Clr Calc Pharmacy 118.6 ml/min; Est GFR (African American) 101.2 ml/min; Est GFR (Non-African American) 87.3 ml/min; Globulin 4.4 gm/dl (2.5-4.0); Potassium 3.7 mmol/L (3.5-5.1)
--- NOTE | 2022-11-29 08:20 | Oral/Maxillofacial Progress Nt ---
Date of Service November 29, 2022 Assessment & Plan Admission and Anticipated Discharge Date Admission Date: November 27, 2022 Subjective Post Op infection evaluation 24 hours The infected area is responding very well Swelling is gone and the tissue is looking good No drainage is noted. Cultures pending Infection has responded very well to the antibiotics, surgical extractions and the I and D. I requested that the patient continue with massage, heat and wound care. At this time the area is well healed and responded well to treatment. She is OK for D/C from oral surgery point of view I will see Tiffanie in 7-10 days for post op Results & Data ([facility]) Vital Signs (Past 12 Hours) Vital Signs Temp Pulse Pulse Resp BP Pulse Ox O2 Del Method 11/29/22 07:52 37.1 C 74 18 124/62 93 Room Air 11/29/22 07:28 78 11/29/22 03:15 36.7 C 54 L 20 125/82 94 Room Air 11/28/22 22:05 92 H 11/28/22 23:34 36.7 C 89 20 135/80 93 Room Air PG Care Time/CCT Total # of Minutes Spent Total Time Spent with Patient: Total time spent is greater than 50% in coordination of care (as documented) at patient's floor/unit and/or counseling patient: Coding Level of Care Code None
[2022-11-29] MEDS: LOSARTAN POTASSIUM 50 MG TAB PO SCH (08:23)
[2022-11-29] MEDS: LEVOTHYROXINE SODIUM 50 MCG TABLET PO SCH (08:23)
[2022-11-29] MEDS: FLUTICASONE PROPIONATE NA SPR 16 GM BTL NAE SCH (08:24)
--- NOTE | 2022-11-29 08:28 | Hospitalist Progress Note ---
Date of Service November 29, 2022 Assessment & Plan (1) Facial cellulitis: Plan: Due to periodontal disease. She had oral surgery today with incision and drainage of upper and lower abscesses and extraction of multiple upper and lower teeth. She is now on intravenous Unasyn. Appreciate [facility] [place] and recommendations. Pain control measures. Oral hygiene. Serial labs (2) Diabetes type 2, uncontrolled: Plan: Holding Trulicity and metformin while hospitalized. Sliding scale coverage. Basal insulin twice daily for now. ADA diet when able to take p.o. (3) Tobacco dependence due to cigarettes: Plan: Still smoking 1PPD. Encouraged cessation. Nicotine patches if requested (4) Dyslipidemia: Plan: continue statin therapy (5) Primary hypothyroidism: Plan: continue levothyroxine replacement therapy (6) TONY (obstructive sleep apnea): Plan: Normally wears HS bipap but unable to tolerate at this time due to her pain and swelling. Will hold for now (7) Hypertension: Plan: Hemodynamically stable . Continue metoprolol and losartan (8) Acid reflux: Plan: PPI therapy Plan Anticipate eventual discharge back to home later this week on oral antibiotic Admission and Anticipated Discharge Date Admission Date: November 27, 2022 Results & Data Results & Data ([facility]) Vital Signs (Past 12 Hours) Vital Signs Temp Pulse Pulse Resp BP Pulse Ox O2 Del Method 11/29/22 07:52 37.1 C 74 18 124/62 93 Room Air 11/29/22 07:28 78 11/29/22 03:15 36.7 C 54 L 20 125/82 94 Room Air 11/28/22 22:05 92 H 11/28/22 23:34 36.7 C 89 20 135/80 93 Room Air Laboratory Results 11/29/22 11/29/22 11/29/22 Range/Units 07:42 05:30 05:30 WBC 14.17 H (4.8-10.8) K/ul RBC 4.00 (3.93-5.22) M/uL Hgb 12.8 (12.0-16.0) g/dl Hct 37.4 (34.1-44.9) % MCV 93.5 (80.0-100.0) fL MCH 32.0 (25.0-34.0) pg MCHC 34.2 (32.0-36.0) g/dL RDW Std Deviation 44.8 (36.4-46.3) fL RDW Coeff of Rui 12.9 (11.5-14.5) % Plt Count 335 (130-400) K/uL MPV 10.1 (9.4-12.3) fL Sodium 137 (136-145) mmol/L Potassium 3.7 (3.5-5.1) mmol/L Chloride 103 (98-107) mmol/L Carbon Dioxide 26 (21-32) mmol/L Anion Gap 8 (3-11) BUN 6 (6-23) mg/dl Creatinine 0.79 (0.6-1.2) mg/dl Est Cr Clr Drug Dosing 118.6 ml/min Est GFR ( Amer) 101.2 ml/min Est GFR (Non-Af Amer) 87.3 ml/min BUN/Creatinine Ratio 7.6 L (10-20) Glucose 221 H (70-99(Fasting)) mg/dl POC Glucose 224 H (70-99) mg/dl Estimat Average Glucose mg/dl Hemoglobin A1c (4.5-5.6) % Calcium 9.6 (8.5-10.1) mg/dl Total Bilirubin 0.6 (0.2-1.0) mg/dl AST 16 (13-39) U/L ALT 29 (7-52) U/L Alkaline Phosphatase 56 (34-104) U/L Total Protein 8.0 (6.0-8.3) gm/dl Albumin 3.6 (3.4-5.0) gm/dl Globulin 4.4 H (2.5-4.0) gm/dl Albumin/Globulin Ratio 0.8 L (0.9-2) 11/28/22 11/28/22 11/28/22 Range/Units 20:24 16:49 11:52 WBC (4.8-10.8) K/ul RBC (3.93-5.22) M/uL Hgb (12.0-16.0) g/dl Hct (34.1-44.9) % MCV (80.0-100.0) fL MCH (25.0-34.0) pg MCHC (32.0-36.0) g/dL RDW Std Deviation (36.4-46.3) fL RDW Coeff of Rui (11.5-14.5) % Plt Count (130-400) K/uL MPV (9.4-12.3) fL Sodium (136-145) mmol/L Potassium (3.5-5.1) mmol/L Chloride (98-107) mmol/L Carbon Dioxide (21-32) mmol/L Anion Gap (3-11) BUN (6-23) mg/dl Creatinine (0.6-1.2) mg/dl Est Cr Clr Drug Dosing ml/min Est GFR ( Amer) ml/min Est GFR (Non-Af Amer) ml/min BUN/Creatinine Ratio (10-20) Glucose (70-99(Fasting)) mg/dl POC Glucose 240 H 193 H 204 H (70-99) mg/dl Estimat Average Glucose mg/dl Hemoglobin A1c (4.5-5.6) % Calcium (8.5-10.1) mg/dl Total Bilirubin (0.2-1.0) mg/dl AST (13-39) U/L ALT (7-52) U/L Alkaline Phosphatase (34-104) U/L Total Protein (6.0-8.3) gm/dl Albumin (3.4-5.0) gm/dl Globulin (2.5-4.0) gm/dl Albumin/Globulin Ratio (0.9-2) 11/28/22 11/28/22 Range/Units 09:20 06:22 WBC (4.8-10.8) K/ul RBC (3.93-5.22) M/uL Hgb (12.0-16.0) g/dl Hct (34.1-44.9) % MCV (80.0-100.0) fL MCH (25.0-34.0) pg MCHC (32.0-36.0) g/dL RDW Std Deviation (36.4-46.3) fL RDW Coeff of Rui (11.5-14.5) % Plt Count (130-400) K/uL MPV (9.4-12.3) fL Sodium (136-145) mmol/L Potassium (3.5-5.1) mmol/L Chloride (98-107) mmol/L Carbon Dioxide (21-32) mmol/L Anion Gap (3-11) BUN (6-23) mg/dl Creatinine (0.6-1.2) mg/dl Est Cr Clr Drug Dosing ml/min Est GFR ( Amer) ml/min Est GFR (Non-Af Amer) ml/min BUN/Creatinine Ratio (10-20) Glucose (70-99(Fasting)) mg/dl POC Glucose 202 H (70-99) mg/dl Estimat Average Glucose 189 mg/dl Hemoglobin A1c 8.2 H (4.5-5.6) % Calcium (8.5-10.1) mg/dl Total Bilirubin (0.2-1.0) mg/dl AST (13-39) U/L ALT (7-52) U/L Alkaline Phosphatase (34-104) U/L Total Protein (6.0-8.3) gm/dl Albumin (3.4-5.0) gm/dl Globulin (2.5-4.0) gm/dl Albumin/Globulin Ratio (0.9-2) PG Care Time/CCT Total # of Minutes Spent Total Time Spent with Patient: Total time spent is greater than 50% in coordination of care (as documented) at patient's floor/unit and/or counseling patient: Coding Diagnoses Facial cellulitis L03.211 Diabetes type 2, uncontrolled E11.65 Tobacco dependence due to cigarettes F17.210 Dyslipidemia E78.5 Primary hypothyroidism E03.9 TONY (obstructive sleep apnea) G47.33 Hypertension I10 Acid reflux K21.9
[2022-11-29] MEDS: LANTUS PER UNIT CHARGE SQ SCH (08:29)
[2022-11-29] MEDS: INSULIN ASPART PER UNIT SC SCH (08:29)
[2022-11-29] MEDS ORDERED: oxyCODONE HCL IR 5 MG TAB (IMMEDIATE RELEASE) PO PRN (09:12)
--- NOTE | 2022-11-29 09:30 | Discharge Summary ---
Date of Service November 29, 2022 Admission HPI Per Admitting Provider Tiffanie is a 52 year old female with a PMH significant for Hypothyroidism, TONY, HTN, dyslipidemia, DM II, tobacco use disorder, and morbid obesity who presented to the [facility] ED on 11/27/22 with a chief complaint of worsening left-sided facial pain/dental pain. In the ED the patient was found to be afebrile, hemodynamically stable, and stable on RA. Labs were significant for a leukocytosis of 15 with absolute neutrophils of 9.79, stable Hgb and platelets, stable cr at 0.81, calcium of 10.2 otherwise stable electrolytes, stable liver function, and covid negative. CT of the face with contrast was read as "Extensive odontogenic disease with numerous dental caries and periapical abscesses. Periapical abscess of the left lateral maxillary incisor with an adjacent 1 cm soft tissue abscess and associated cellulitis.". Prior to admission the patient was given one dose of Unasyn, 500 mg PO tylenol, and 1L NSS. ENT was consulted by the ED and recommended medicine admission for IV antibiotics overnight and OR likely tomorrow. Per chart review, the patient was seen at her PCP's office yesterday for the same complaint. She was started on Penicillin V and advised to go to the ER if her symptoms worsened despite antibiotic therapy. At the time of the exam the patient was resting comfortably in bed in no acute distress with her sitting bedside. She states that she started to develop pain and swelling over the upper left teeth which has continued to progress and move further up her left cheek. She confirms that she saw her PCP yesterday and did take two doses of the Penicillin V since yesterday. She states that the swelling and pain continued to worsen, which is why she presented to the ED. She states that her pain is currently a 2-3/10 after recently ordering 4 mg IV morphine ordered by the ED. She denies recent fevers, chills, headache, changes in vision, hearing, taste, and smell, chest pain, SOB, cough, abd pain, nausea, vomiting, diarrhea, dysuria, hematuria, and recent falls. She is still smoking approximately 1 pack of cigarettes daily. I spoke to she and her regarding code status, she wishes to be a Full Code. She would want her to make decisions for her if she could not make them herself. Please refer to Dr. Kuo's attestation for any changes to the treatment plan Admission Exam Per Admitting Provider Physical Exam: General:In no acute distress, stated age, chronically ill-appearing, poor hygiene, non-toxic appearing HEENT:Patient with swelling and erythema noted on the left cheek/upper lip which is warm and tender to palpation, multiple dental caries noted throughout the upper and lower jaw, pupils around round, symmetrical, and reactive to light, moist mucus membranes, trachea midline, no thyromegaly Chest/Pulm:No respiratory distress, symmetrical chest expansion, expiratory wheezing noted throughout Cardiac:RRR, no murmurs noted Abdomen:Negative for ascites and bruising, normoactive bowel sounds, soft, non-tender to palpation throughout Musculoskeletal:Symmetrical and without signs of acute trauma, upper and lower extremities with full ROM, no atrophy, spasticity, or flaccidity Extremities:Radial, dorsalis pedis, and posterior tibial pulses are intact and symmetrical, no edema noted in the BL LE's Skin:Warm, dry, no rashes , lesions, or scars noted Neuro:Alert and oriented to person, place, month, year, and president, no focal defects, CN II-XII tested and intact, finger to nose test negative, no tremors noted Psych:No acute distress, calm and cooperative during the exam Principal Diagnosis Facial Cellulitis, Dental Abscesses, Severe Odontogenic Disease Discharge Exam General: WD female sitting up in bed on phone, NAD, poorly kept, chronically ill appearing HEENT: multiple tooth extractions bilateral upper/lower jaw, no evidence of purulent drainage, nontender to palpation, slight edema lower lip from retraction, no laceration/injury noted. no stridor. cellulitis almost completely resolved Resp; CTAB, slightly diminished in the bases, no c/r, on room air CV: RRR, no m/r/g, no pitting edema GI:+BS, soft/NT ; no perkins MSK/Neuro: no focal deficits, moves all extremities Psych: AOx3, pleasant and cooperative Discharge Data Allergies Allergy/AdvReac Type Severity Reaction Status Date / Time latex Allergy Intermediate Rash Verified 11/27/22 15:35 codeine AdvReac Intermediate hallucinati Verified 11/27/22 15:35 ons Consultations 11/27/22 15:36 ED Decision to Admit Stat 11/27/22 17:15 Consult Otolaryngology (Head and Neck) Routine Procedures Performed Operation Date: 11/28/22 07:30 Actual Procedures p Extraction of Multiple Teeth, 6,7,8,9,10,11,12,21,22,23,24,25,26,27,28 and Upper lip Incision and Drainage(Not Applicable) - Anshul Delacruz, KARIE Ordered Studies Face CT 11/27/22 13:[address] WITH CONTRAST CLINICAL HISTORY: Left sided facial edema, pain. COMPARISON STUDY: Facial CT April 24, 2020. TECHNIQUE: Axial images of the face were obtained following intravenous injection of 88 cc of Optiray 350 IV. Sagittal and coronal reconstructions were viewed. Automated exposure control was utilized for the study. A dose lowering technique was utilized adhering to the principles of ALARA. FINDINGS: Visualized portions of the intracranial contents are unremarkable. Major vasculature of the upper neck is patent. Several mildly enlarged left cervical lymph nodes are likely reactive. Index left level 2 node measures 1.7 x 1.3 cm. Extensive odontogenic disease is noted with numerous dental caries and periapical abscesses. Multiple teeth are absent. There is a 9 mm periapical abscess of the left lateral maxillary incisor with an associated 1 cm rim- enhancing fluid collection with adjacent stranding consistent with an abscess. No additional soft tissue abscesses are present. The epiglottis is normal. IMPRESSION: Extensive odontogenic disease with numerous dental caries and periapical abscesses. Periapical abscess of the left lateral maxillary incisor with an adjacent 1 cm soft tissue abscess and associated cellulitis. ACT 112: Negative or not required by law. Electronically signed by: Mansoor Melo M.D. 11/27/2022 3:45 PM Hospital Course (1) Facial cellulitis: Due to periodontal disease. s/p p Incision and Drainage left nasolabial(upper) and lower subperiosteal abscess Removal of teeth 6,7,8,9,10,11,12 and lower teeth 21,22,23,24,25,26,27,[address] Delacruz. EBL 6cc Treated with IV Unasyn while inpatient, pain control/antiemetics prn, IVF for dehydration for poor PO intake prior to admit (due to tooth infections) WBC trended down, afebrile Cx from OR pending at time of discharge Tolerated liquid diet -- to advance slowly, instructions/information given for dental soft diet Discussed with Dr Delacruz, stable for discharge. To continue mouth wash/heat/massage. he already sent in rx for Augmentin and Vicodin Strongly encouraged patient to AVOID/STOP smoking F/u appt for December 14. Alerted of signs/symptoms to return for any worsening (2) Abscess, dental: as above, OMFS consulted s/p I&D cx pending at d/c Unasyn while inpatient, augmentin PO at discharge (3) Diabetes type 2, uncontrolled: Holding Trulicity and metformin while hospitalized. BSG AC/HS, ISS while inpatient BSgs controlled Resumed home meds at d/c and f/u PCP (4) Tobacco dependence due to cigarettes: Still smoking 1PPD. Encouraged cessation STRONGLY prior to discharge/risks discussed, including short term w/ poor wound healing/dry socket as well as intermediate (5) Dyslipidemia: continued statin therapy (6) Primary hypothyroidism: continued levothyroxine replacement therapy (7) TONY (obstructive sleep apnea): Normally wears HS bipap but unable to tolerate at this time due to her pain and swelling. To resume at home now that pain resolved (8) Hypertension: Continued metoprolol and losartan (9) Acid reflux: PPI therapy Plan Discharged home w/ w/ continued abx/pain control/mouth wash F/u Dr Delacruz as already arranged Total Time Total Time Spent Total Time Spent (In Minutes): 45 Discharge Plan Discharge Items Patient Disposition: Home - Self-Care Reason For Visit: LEFT FACIAL SWELLING/PAIN Discharge Diagnosis: s/p acute facial swelling of the upper lip and maxilla Condition on Discharge: Good Goals: You have been hospitalized for an urgent problem which required surgery. During your stay at [facility], we have made an effort to correct the problem that brought you to the hospital while keeping you as comfortable as possible. Surgery and medications were used to bring your condition under control and your discharge instructions will include directions for any medications you should take after leaving the hospital. Please make sure to follow the advice of your surgeon regarding follow up with the surgeon and with your primary care provider. Activity: Resume your previous activity Lifting: Gradually increase as tolerated Bathing: No limitations Exercise/Sports: Gradually increase as tolerated Driving/Machine Use: Resume 1 day after discharge Weightbearing: Full weightbearing Non-emergency contact: Primary Care Provider and Surgeon Call non-emergency contact if: you have any medication questions, your symptoms worsen, your pain is not controlled, you have a fever, your temperature is above 101.5 and your wound pain has increased Follow-up/Referrals: Purvi Bear DO [Primary Care Provider] - 12/10/22 10:20 am Anshul Delacruz DMD [Physician] - 12/14/22 9:45 am (Dec 14) Diet: Full liquid and Clear liquid Diet Texture: Easy to Chew Diet Comment: start with clear--full--dental soft Addtl Attending Provider Instructions: You have been hospitalized for dental pain and found to have multiple cavities and abscess. Dr Delacruz was consulted and you underwent extraction. You have been continued on IV antibiotics in the hospital and then you have been sent Augmentin to take twice a day to complete treatment. Cultures are still pending at time of discharge, but Augmentin should cover. Pain medications have been sent with vicodin and please note if you have issues with constipation to take over the counter stool softener. Please continue mouth rinse, HIGHLY recommend STOPPING smoking. Please follow up with Dr Delacruz as arranged for December 14. Please follow up with your PCP in the next week to monitor your progress since hospitalization. Please return to the ER with any worsening pain, fever, shortness of breath, difficulty swallowing or for any other symptoms concerning for you. It has been a pleasure being a part of the medical team providing for you while you have been in the hospital. Take care! ADDITIONAL ACTIVITY RECOMMENDATIONS: * [place] teeth after every meal. It is very important to keep your mouth clean to prevent infection. * Starting tonight rinse with the Peridex as directed then 2 x a day * it is very important to keep well hydrated, this prevents fever and possible dry socket pain SPECIAL CARE INSTRUCTIONS: *It is not uncommon that between day 2-4 that your swelling will be at its worst this is very normal, do not be alarmed. * Please apply heat (hot water bottle or heating pad) for the next two days, as often as possible.Front part of your face * Tomorrow start rinsing your mouth with 1/2 teaspoon salt in 8 ounces warm water. This rinse should be used every 4-6 hours. * You may experience slight nausea. To prevent this, never take your medication on an empty stomach. If nauseated, take small sips of kevon jane until you feel better; then you may start on applesauce and toast. * Some swelling is common. It should gradually decrease within 4-5 days. * A certain amount of bleeding is to be expected. It is often possible to control mild oozing by placing folded gauze over the area and biting down for 30 minutes. If you are unable to control excessive bleeding, call Dr Delcaruz at [phone] * You may experience some discomfort for a few days. If pain or swelling increases, Call Dr Delacruz * Return to the office for a follow up check up on: SaturdayDECEMBER 14 at 9:45 am * office address--[address] phone # [phone] Pending Studies at Discharge: Yes Studies:: results of the C and S Stand-Alone Forms: My [facility] [place] [employer], Smoking Cessation Medications and DC Order Prescriptions: New chlorhexidine gluconate 0.12 % Mouthwash 15 ml MT BID PRN (Reason: mouth rinse) Qty: 0 0RF Continued (DME) blood sugar diagnostic Strip See Rx Instructions .ROUTE .MEDSUPPLY Qty: 300 0RF Rx Instructions: Test blood sugar three times daily metformin 500 mg tablet extended release 24 hr 1,000 mg PO BID Qty: 360 3RF Rx Instructions: PER PT "NEED TO TAKE WITH FOOD, OTHERWISE GET VERY SICK". levothyroxine [Levoxyl] 50 mcg tablet 50 mcg PO QAM Qty: 90 0RF losartan 50 mg tablet 50 mg PO QAM Qty: 90 1RF amoxicillin-pot clavulanate 875-125 mg tablet 1 tab PO Q12H Qty: 20 0RF hydrocodone-acetaminophen 5-325 mg tablet 1 tab PO Q4H PRN (Reason: pain) Qty: 10 0RF fluticasone propionate [Flonase Allergy Relief] 50 mcg/actuation spray,suspension 2 spray intranasal DAILY Qty: 16 2RF Rx Instructions: administer into each nostril metoprolol succinate 25 mg tablet extended release 24 hr 75 mg PO HS (DME) BI-PAP Misc See Rx Instructions .Route Rx Instructions: As directed tramadol 50 mg tablet 50 mg PO Q8H PRN (Reason: pain) Qty: 30 0RF (DME) lancets [OneTouch UltraSoft Lancets] Misc See Rx Instructions .ROUTE .MEDSUPPLY Qty: 100 Rx Instructions: Test blood sugar three times daily cholecalciferol (vitamin D3) 125 mcg (5,000 unit) capsule 125 mcg PO HS fish,flaxseed oil-e.prim-bcurr [Fish, Flax andBorage Oil(Prim)] 3 cap PO HS Rx Instructions: PER PT "HAVEN'T BEED TAKING D/T UNAVAILABLITY IN STORES". ascorbic acid (vitamin C) [Vitamin C] 1,000 mg Tablet 1 g PO HS mecobalamin (vitamin B12) 5,000 mcg Tablet,Disintegrating 5,000 mcg PO QAM Trulicity 0.75 mg/0.5 mL pen injector 0.75 mg subcut WK Label Comments: pt states on 09/06/22 she has not started med yet Rx Instructions: PER PT "DID NOT START YET". Discontinued penicillin V potassium 500 mg tablet 500 mg PO BID 10 Days Qty: 20 0RF Rx Instructions: STARTED 11/26/22 FOR 10 DAYS. Discharge Orders: Discharge Order (Routine); Ordered 11/29/22 Ordered By: Maame Benavides/Other Patient Handouts: Soft Diet Ch Dc Admission Data Admit Date/Time: 11/27/22 16:37 Attending Provider: Megan Lucas Admit Provider: Charan Kuo Primary Care Provider: Purvi Bear Other Providers: Charan Kuo ; Anshul Delacruz Other Interventions: Discharge Summary Assessment (RN) Last Done: 11/29/22 09:42 Supervising Physician Co-Signing Physician Notes PA Supervision Note: I did not personally see or examine the patient today, but I verified all wheeler points of JUAN DANIEL Bhatia's assessment and plan with the following exceptions/additions: None Coding Level of Care Code HOSP INP/OBS DISCH >30 MIN Diagnoses Facial cellulitis L03.211 Abscess, dental K04.7 Diabetes type 2, uncontrolled E11.65 Tobacco dependence due to cigarettes F17.210 Dyslipidemia E78.5 Primary hypothyroidism E03.9 TONY (obstructive sleep apnea) G47.33 Hypertension I10 Acid reflux K21.9
[2022-11-29] MEDS: ACETAMINOPHEN 325 MG TAB PO PRN (10:13)
== END 2022-11-29 10:43 | disposition home or self-care (01) ==
LOC: ED 12:59 → 2N 12:59 → SUATTDRO 16:37 → 2N 17:25

== ENCOUNTER 2024-10-12 02:52 | Inpatient (IN) ==
[2024-10-12 03:22] LABS: Basophils # (auto) 0.05 K/uL (0.00-0.20); Basophils % (auto) 0.5 %; Eosinophils # (auto) 0.22 K/uL (0.00-0.50); Hematocrit (blood only) 46.3 % (37.0-47.0); Hemoglobin 15.1 g/dl (12.0-16.0); Immature Granulocytes # (auto) 0.03 K/uL (0.01-0.20); Immature Granulocytes % (auto) 0.3 %; Lymphocytes # (auto) 3.17 K/uL (1.20-3.40); Lymphocytes % (auto) 28.6 %; Mean Corpuscular Hemoglobin 30.9 pg (25.0-34.0); Mean Corpuscular Hgb Conc 32.6 g/dL (32.0-36.0); Mean Corpuscular Volume 94.9 fL (80.0-100.0); Mean Platelet Volume 10.5 fL (9.4-12.4); Neutrophils % (auto) 59.6 %; Platelet Count 285 K/uL (130-400); RDW Coefficient of Variation 13.3 % (11.5-14.5); RDW Standard Deviation 46.8 fL (36.4-46.3); Red Blood Count 4.88 M/uL (4.20-5.40); White Blood Count 11.07 K/ul (4.8-10.8)
[2024-10-12 03:32] LABS: Albumin Level 3.8 gm/dl (3.4-5.0); BUN Creatinine Ratio 15.7 (10-20); Bilirubin,Total 0.2 mg/dl (0.2-1.0); Calcium 9.4 mg/dl (8.6-10.3); Creatinine Clr Calc Pharmacy 79.8 ml/min; Potassium 4.2 mmol/L (3.5-5.1); Total Protein 7.8 gm/dl (6.0-8.3)
[2024-10-12 03:39] LABS: Troponin I High Sensitivity 21.1 pg/ml (0-14)
--- NOTE | 2024-10-12 03:45 | Emergency Department Note ---
Impression & Plan Non-ST elevation ME (NSTEMI) Admit to the [facility] ED Provider Note NAME: ISHA CHAMBERLAIN AGE: 54 SEX: Female INFORMANT: Patient ED PROVIDER(S): Mariah Mullen DO CHIEF COMPLAINT: Chest pain PLAN: Disposition: admit to the [facility] MEDICAL DECISION MAKING: this is a 54-year-old female patient who woke from sleep approximately 90 minutes ago with an episode of chest pain that radiated to her right jaw. This was associated with some nausea and shortness of breath as well as diaphoresis. patient has never experienced discomfort like this in the past. She chewed up and aspirin and called EMS. laboratory studies reveal elevated glucose of 262. Leukocytosis at 11. H&H were stable. Renal function was normal. Troponin was slightly elevated at 21. A repeat troponin went up significantly to 120. Portable chest x-ray was unremarkable. Patient remained chest pain-free while here in the emergency department. I discussed the case with the [facility] and they will evaluate for further inpatient care. Care/management discussed with: healthcare advisory services manager and [facility] Triage Nursing notes: reviewed and agree With them. Vital Signs: reviewed and unremarkable Differential Diagnosis: aortic dissection, STEMI, NSTEMI, costochondritis, GERD Diagnostics, independently interpreted by me: ECG: normal sinus rhythm at a rate of [address] segment elevation or signs of ischemia. QTc was 411 ms. Cardiac Monitoring: Normal sinus rhythm at a rate of 71 Imaging studies: portable chest x-ray-as per my independent interpretation: No acute pulmonary infiltrates or consolidation; no significant cardiomegaly HPI: 54 year old Female arrives for evaluation of Substernal chest pain. this is a 54-year-old female patient who woke from sleep approximately 90 minutes ago with an episode of chest pain that radiated to her right jaw. This was associated with some nausea and shortness of breath as well as diaphoresis. patient describes having episodes intermittently over the past 3 to 4 days. Patient has a history of hypercholesterolemia but does not take her statin. she placed aspirin on her nightstand before bed because she has been having intermittent episodes and was concerned she may need to take some of the middle of the night. PAST MEDICAL HISTORY: See Below, PAST SURGICAL HISTORY: See Below, SOCIAL HISTORY: See Below, Family history: The patient is grandmother had significant coronary artery disease but parents and siblings do not. HOME MEDICATIONS: See list ALLERGIES: see list VITALS: See Below PHYSICAL EXAMINATION: HEENT: Head - normocephalic and atraumatic. Pupils are equal, round, and reactive to light. Extraocular eye muscles are intact, and sclera are anicteric. Nose - moist nasal mucosa without discharge. Mouth - moist buccal mucosa. Oropharynx is nonerythematous and there is no tonsillar exudate or edema noted. Neck: Supple; no JVD, nuchal rigidity, cervical lymphadenopathy, or auscultated bruits. Heart: Heart sounds are distant secondary to body habitus. Regular rate and rhythm. There is a normal S1 and S2 with no murmurs, clicks, or gallops appreciated. Lungs: Clear to auscultation bilaterally with no wheezes, rales, or rhonchi. Abdomen: Soft, completely nontender, nondistended, with good bowel sounds. There are no palpable pulsatile masses or hepatosplenomegaly. There is no guarding, rigidity, or rebound noted. Extremities: No evidence of cyanosis, clubbing, or edema. There are easily palpable peripheral pulses. Skin: warm and dry with good turgor and no rashes. Emergency department course: The patient was evaluated in room B-11. A complete history and physical was performed. An order was placed for continuous cardiac monitoring. The patient is in a normal sinus rhythm at a rate of 71. A twelve-lead EKG was obtained as described above. A portable chest x-ray was performed. Patient was able to sleep for a period of time. She had no return of her chest discomfort. I discussed the case with the [facility] Hospitalist and they will evaluate for further inpatient care. The patient's troponin was repeated and was higher than the initial troponin. This will be addressed by the inpatient service. Past Med/Surg History Problem List (Updated 10/12/24 @ 06:51 by Mariah Mullen DO) Non-ST elevation ME (NSTEMI) (Acute) Unstable angina NSTEMI (non-ST elevated myocardial infarction) B12 deficiency ETD (eustachian tube dysfunction) Conductive hearing loss of left ear with unrestricted hearing of right ear Acid reflux Pressure sensation in both ears Morbid obesity Metabolic syndrome Vitamin D deficiency Tobacco dependence due to cigarettes Fatty infiltration of liver Insomnia Adult situational stress disorder Diabetic peripheral neuropathy associated with type 2 diabetes mellitus Hidradenitis suppurativa Diabetes type 2, uncontrolled Dyslipidemia Osteoarthritis of knees, bilateral Primary hypothyroidism (Chronic) Diverticulitis (Acute) Hypertension (Chronic) Medical History B12 deficiency Morbid obesity with BMI of 40.0-44.9, adult History of anesthesia reaction BP dropped with endometrial ablation History of kidney stones Acid reflux History of COVID-19 diagnosed 2019--mild symptoms, no symptoms now Diabetic peripheral neuropathy associated with type 2 diabetes mellitus Primary hypothyroidism TONY (obstructive sleep apnea) bipap at hs Hidradenitis suppurativa Osteoarthritis of knees, bilateral Dyslipidemia Diabetes type 2, uncontrolled Diverticulitis Hypertension Surgical History Hx of oral surgery (11/28/22) p Incision and Drainage left nasolabial(upper) and lower subperiosteal abscess Removal of teeth 6,7,8,9,10,11,12 and lower teeth 21,22,23,24,25,26,27,28 History of surgical removal of pilonidal cyst History of endometrial ablation History of surgery removal of sweat/hair glands underneath bilateral arms d/t hidradenitis suppurativa History of wisdom tooth extraction H/O dilation and curettage H/O removal of cyst under R eye Family History Aunt Breast cancer Grandfather (Maternal) Myocardial infarction Grandmother (Maternal) History of anesthesia reaction difficulty waking Daughter History of anesthesia reaction under local anesthesia for repair of nerve in her finger--"went unresponsive and had no neurological function for 20 min" ???, slowly came out it Denies family history of Ovarian cancer Prostate cancer Colorectal cancer Social History Smoking Status: Current every day smoker Tobacco Type: Cigarettes Age Started Using Tobacco: 15; packs per day: 1; Cigarettes Per Day: 10 a day (advised); Second Hand Exposure: Yes; Do You Dip or Chew Tobacco: No; Hx Alcohol Use: Yes Alcohol type: beer Alcohol Intake Frequency: Monthly or Less Hx Substance Use: No Preferred Language: Maori Communication Ability: Effective Visual Impairment: No Limitations Hearing Ability: Hard of Hearing Community Development Manager Required: No Beliefs That Will Affect Care: None marital status: Current Living Situation: Spouse and Family Current Living Situation Comment: lives with , son, daughter, daughter's boyfriend current occupational status: unemployed Feels Safe at Home: Yes Childhood Exposure to Second-Hand Smoke: Yes caffeine: Yes during the past year weight has: remained stable Dental Care, Regularly: No Physical Activity Frequency: Daily Seatbelt Use: always Sunscreen Use: No Assistive Devices: None Allergies Allergies Allergy/AdvReac Type Severity Reaction Status Date / Time latex Allergy Intermediate Rash Verified 07/13/24 14:05 codeine AdvReac Intermediate hallucinati Verified 07/13/24 14:05 ons Home Meds Home Medications Medication Instructions Recorded Confirmed BI-PAP 03/12/22 07/13/24 Previous Rx's Medication Instructions Recorded blood sugar diagnostic #300 ea 07/02/23 lancets #300 ea 07/02/23 fluticasone propionate 50 2 spray intranasal DAILY #16 grams 07/26/23 mcg/actuation nasal spray,suspension (Flonase Allergy Relief) carboxymethylcellulose sodium 1 % 1 drp ophthalmic (eye) BID #15 mL 07/13/24 eye drops (Artificial Tears (carboxymethylcellulose)) insulin glargine 100 unit/mL (3 15 unit (0.15 mL) subcut QAM #15 mL 07/14/24 mL) subcutaneous pen (Lantus Solostar U-100 Insulin) pen needle, diabetic 31 gauge x #50 ea 07/27/24 5/16" blood-glucose sensor (FreeStyle #2 ea 09/15/24 Satya 3 Plus Sensor device) rosuvastatin 5 mg tablet 5 mg PO DAILY #90 tabs 09/15/24 empagliflozin 25 mg tablet 25 mg PO DAILY #30 tabs 09/23/24 (Jardiance) levothyroxine 75 mcg tablet 75 mcg PO QAM #90 tabs 09/23/24 losartan 50 mg tablet 50 mg PO QAM #90 tabs 09/23/24 metoprolol succinate 25 mg 75 mg (3 x 25 mg) PO HS #270 tabs 09/23/24 tablet,extended release 24 hr pantoprazole 40 mg tablet,delayed 40 mg PO DAILY #90 tabs 09/23/24 release (Protonix) Results & Data (ED) Vital Signs Vital Signs - 24 hr 10/12/24 02:58 10/12/24 03:00 10/12/24 03:03 Temperature 36.7 C Temperature Source Oral Pulse Rate 79 84 Pulse Rate from SpO2 Sensor Pulse Rhythm Respiratory Rate 18 Respiratory Effort / Characteristics Non-Labored Spontaneous Respiratory Depth Normal Respiratory Pattern Regular Blood Pressure 158/93 H 158/93 H Blood Pressure Mean 114 105 Pulse Oximetry 97 Oxygen Delivery Method Room Air Sepsis Recent Fever Within 48 Hours No Sepsis New/Unexplained Change in Mental Status N/A Sepsis Action Taken by Nursing No Action Required 10/12/24 03:03 10/12/24 03:13 10/12/24 03:30 Temperature Temperature Source Pulse Rate 80 71 70 Pulse Rate from SpO2 Sensor 80 70 Pulse Rhythm Regular Respiratory Rate 14 18 25 H Respiratory Effort / Characteristics Respiratory Depth Respiratory Pattern Blood Pressure Blood Pressure Mean Pulse Oximetry 98 100 93 Oxygen Delivery Method Room Air Sepsis Recent Fever Within 48 Hours Sepsis New/Unexplained Change in Mental Status Sepsis Action Taken by Nursing Laboratory Data 10/12/24 03:03 10/12/24 03:03 Lab Results 10/12/24 Range/Units 03:03 WBC 11.07 H (4.8-10.8) K/ul RBC 4.88 (4.20-5.40) M/uL Hgb 15.1 (12.0-16.0) g/dl Hct 46.3 (37.0-47.0) % MCV 94.9 (80.0-100.0) fL MCH 30.9 (25.0-34.0) pg MCHC 32.6 (32.0-36.0) g/dL RDW Std Deviation 46.8 H (36.4-46.3) fL RDW Coeff of Rui 13.3 (11.5-14.5) % Plt Count 285 (130-400) K/uL MPV 10.5 (9.4-12.4) fL Immature Gran % (Auto) 0.3 % Neut % (Auto) 59.6 % Lymph % (Auto) 28.6 % [place] % (Auto) 9.0 % Eos % (Auto) 2.0 % Baso % (Auto) 0.5 % Neut # (Auto) 6.60 H (1.40-6.50) K/uL Lymph # (Auto) 3.17 (1.20-3.40) K/uL [place] # (Auto) 1.00 H (0.11-0.59) K/uL Eos # (Auto) 0.22 (0.00-0.50) K/uL Baso # (Auto) 0.05 (0.00-0.20) K/uL Immature Gran # (Auto) 0.03 (0.01-0.20) K/uL Sodium 138 (136-145) mmol/L Potassium 4.2 (3.5-5.1) mmol/L Chloride 105 (98-107) mmol/L Carbon Dioxide 25 (21-32) mmol/L Anion Gap 8 (3-11) BUN 18 (6-23) mg/dl Creatinine 1.15 (0.6-1.2) mg/dl Est Cr Clr Drug Dosing 79.8 ml/min eGFR 57.32 BUN/Creatinine Ratio 15.7 (10-20) Glucose 262 H (70-99(Fasting)) mg/dl Calcium 9.4 (8.6-10.3) mg/dl Total Bilirubin 0.2 (0.2-1.0) mg/dl AST 16 (13-39) U/L ALT 23 (7-52) U/L Alkaline Phosphatase 99 (34-104) U/L Troponin I High Sens 21.1 H (0-14) pg/ml Total Protein 7.8 (6.0-8.3) gm/dl Albumin 3.8 (3.4-5.0) gm/dl Globulin 4.0 (2.5-4.0) gm/dl Albumin/Globulin Ratio 1.0 (0.9-2) Triglycerides 393 H (0-150) mg/dl Cholesterol 216 H (0-200) mg/dl LDL Cholesterol, Calc 104 mg/dl VLDL Cholesterol, Calc 79 H (0-30) mg/dl HDL Cholesterol 33 mg/dl Cholesterol/HDL Ratio 6.5 H (0-5) Lipase 61 (11-82) U/L Administered Medications Nitroglycerin (Nitroglycerin 2% Ointment 30gm Tube) 1 inch EXT Q6H BHUPENDRA Stop: 11/11/24 05:59 Last Admin: 10/12/24 06:43 Dose: 1 inch Documented By: ML Discontinued Medications Metoprolol Succinate (Metoprolol Succ 50mg Ext Rel Tab) 50 mg PO NOW STA Stop: 10/12/24 05:02 Last Admin: 10/12/24 05:31 Dose: 50 mg Documented By: [facility] Imaging Data Radiologist's Impression: Chest X-Ray 10/12/24 03:09 EXAM: XR chest 1V portable CLINICAL HISTORY: CHEST PAIN [facility] TECHNIQUE: An X-ray image of the chest was obtained in the AP projection. COMPARISON: CR and CT dated 06/21/2023. FINDINGS: Pulmonary Parenchyma: Still noted right paramediastinal linear radio-opaque shadow. No evidence of consolidation, collapse, or focal opacities. No pulmonary nodules were identified. No evidence of pleural effusion or pleural thickening. Heart and Mediastinum: Heart size and shape are normal. No mediastinal widening or masses. No hilar or mediastinal lymphadenopathy. Bony Thorax: Bony thorax appears intact without fractures or deformities. IMPRESSION: 1. No acute cardiopulmonary abnormalities identified. 2. Still noted noted right paramediastinal linear radio-opaque shadow, could represent prominent mediastinal fat . Electronically signed by Balwinder Barrera 10-12-2024 04:12 AM Discharge Plan Visit Data Chief Complaint: Cardiac Assessment Stated Complaint: CHEST PAIN ED Provider: Mariah Mullen Discharge Problem: Non-ST elevation ME (NSTEMI) Discharge Instructions Interventions: ED Discharge Assessment Last Done: 10/12/24 04:54
--- NOTE | 2024-10-12 04:12 | XRay Report ---
EXAM: XR chest 1V portable CLINICAL HISTORY: CHEST PAIN [facility] TECHNIQUE: An X-ray image of the chest was obtained in the AP projection. COMPARISON: CR and CT dated 06/21/2023. FINDINGS: Pulmonary Parenchyma: Still noted right paramediastinal linear radio-opaque shadow. No evidence of consolidation, collapse, or focal opacities. No pulmonary nodules were identified. No evidence of pleural effusion or pleural thickening. Heart and Mediastinum: Heart size and shape are normal. No mediastinal widening or masses. No hilar or mediastinal lymphadenopathy. Bony Thorax: Bony thorax appears intact without fractures or deformities. IMPRESSION: 1. No acute cardiopulmonary abnormalities identified. 2. Still noted noted right paramediastinal linear radio-opaque shadow, could represent prominent mediastinal fat . Electronically signed by Balwinder Barrera 10-12-2024 04:12 AM
--- NOTE | 2024-10-12 04:43 | History & Physical Report ---
Date of Service October 12, 2024 Assessment & Plan (1) NSTEMI (non-ST elevated myocardial infarction): (2) Unstable angina: (3) Metabolic syndrome: (4) Dyslipidemia: (5) Diabetes type 2, uncontrolled: (6) TONY (obstructive sleep apnea): (7) Hypertension: Plan NSTEMI in the setting of unstable angina- The patient will be admitted to telemetry for serial cardiac enzymes, serial EKG's, cardiac rhythm monitoring and a 2-D echocardiogram with Dopplers. Patient reports symptoms have been gradually increasing in intensity and duration over the past 3 evenings Initial troponin 21.1, with follow-up pending EKG normal sinus rhythm, minimal ST depression V3 compared to previous Patient took aspirin 325 mg prior to arrival, and will continue aspirin 81 mg every morning Upon questioning, she reports that she did not take her metoprolol succinate 75 mg at bedtime last night, because she forgot Presently on is 5:00 AM during this evaluation, and she will be given that evening dose of 50 mg dosing at this time Continue losartan 50 mg every morning Add Nitropaste 1 inch to anterior chest wall every 6 hours due to unstable nature of symptoms If troponin is elevated further, and/or symptoms return, we will begin heparin drip at that point, but expect cardiology to be here within the next 2 to 3 hours Diabetes mellitus- She started insulin glargine 3 weeks ago, with initial dosing of 15 units subcu in the a.m., and is most recently up to [address] on 40 units subcu glargine, with NovoLog SSI Hold Jardiance Check hemoglobin A1c Hyperlipidemia- Patient is supposed to be on rosuvastatin, however, she is not taking it. She is agreeable to starting rosuvastatin, will start at 10 mg Obstructive sleep apnea- Patient follows with pulmonology Hypothyroidism- Continue levothyroxine GERD- Continue pantoprazole Continue BiPAP at bedtime History of Present Illness Chief Complaint: The patient presents to the emergency department after being awoken this morning from sleep at 1:15 AM by substernal chest pain, which radiated up into her left side of her neck. She reports that this is the third night in a row that this has happened, but what brought her into the emergency department was that this episode was more intense and lasted longer. She did take one of her husbands 325 mg aspirin, and then came into the emergency department for assessment. Upon questioning, patient reports that she forgot to take her evening metoprolol succinate 75 mg at bedtime Primary Care Provider: Purvi Bear DO The patient is a 54-year-old female with a past medical history including B12 deficiency, GERD, metabolic syndrome, fatty liver, diabetes mellitus, diabetic peripheral neuropathy, dyslipidemia, TONY on BiPAP, morbid obesity, and hypertension. The patient reports for the past 3 evenings she has been awoken from sleep by substernal chest discomfort. First time this happened, however, was during the day when she was helping her move a heavy object. The past 3 think she has had the symptoms, but this evening the pain was much more intense lasted longer, it radiated to her left side of her neck. As noted she took 's 3 and 25 mg aspirin pills, and then came into the ED for assessment. Allergies Allergy/AdvReac Type Severity Reaction Status Date / Time latex Allergy Intermediate Rash Verified 07/13/24 14:05 codeine AdvReac Intermediate hallucinati Verified 07/13/24 14:05 ons Home Medications Medication Instructions Recorded Confirmed Type BI-PAP 03/12/22 07/13/24 History blood sugar diagnostic #300 ea 07/02/23 07/13/24 Rx lancets #300 ea 07/02/23 07/13/24 Rx fluticasone propionate 50 2 spray intranasal DAILY #16 grams 07/26/23 07/13/24 Rx mcg/actuation nasal spray,suspension (Flonase Allergy Relief) carboxymethylcellulose sodium 1 % 1 drp ophthalmic (eye) BID #15 mL 07/13/24 07/13/24 Rx eye drops (Artificial Tears (carboxymethylcellulose)) insulin glargine 100 unit/mL (3 15 unit (0.15 mL) subcut QAM #15 mL 07/14/24 07/14/24 Rx mL) subcutaneous pen (Lantus Solostar U-100 Insulin) pen needle, diabetic 31 gauge x #50 ea 07/27/24 07/27/24 Rx 5/16" blood-glucose sensor (FreeStyle #2 ea 09/15/24 09/15/24 Rx Satya 3 Plus Sensor device) rosuvastatin 5 mg tablet 5 mg PO DAILY #90 tabs 09/15/24 Rx empagliflozin 25 mg tablet 25 mg PO DAILY #30 tabs 09/23/24 Rx (Jardiance) levothyroxine 75 mcg tablet 75 mcg PO QAM #90 tabs 09/23/24 Rx losartan 50 mg tablet 50 mg PO QAM #90 tabs 09/23/24 Rx metoprolol succinate 25 mg 75 mg (3 x 25 mg) PO HS #270 tabs 09/23/24 Rx tablet,extended release 24 hr pantoprazole 40 mg tablet,delayed 40 mg PO DAILY #90 tabs 09/23/24 Rx release (Protonix) Past Med/Surg History Problem List (Updated 10/12/24 @ 05:25 by Dominguez Harvey MD) Unstable angina NSTEMI (non-ST elevated myocardial infarction) B12 deficiency ETD (eustachian tube dysfunction) Conductive hearing loss of left ear with unrestricted hearing of right ear Acid reflux Pressure sensation in both ears Morbid obesity Metabolic syndrome Vitamin D deficiency Tobacco dependence due to cigarettes Fatty infiltration of liver Insomnia Adult situational stress disorder Diabetic peripheral neuropathy associated with type 2 diabetes mellitus Hidradenitis suppurativa Diabetes type 2, uncontrolled Dyslipidemia Osteoarthritis of knees, bilateral Primary hypothyroidism (Chronic) Diverticulitis (Acute) Hypertension (Chronic) Medical History B12 deficiency Morbid obesity with BMI of 40.0-44.9, adult History of anesthesia reaction BP dropped with endometrial ablation History of kidney stones Acid reflux History of COVID-19 diagnosed 2019--mild symptoms, no symptoms now Diabetic peripheral neuropathy associated with type 2 diabetes mellitus Primary hypothyroidism TONY (obstructive sleep apnea) bipap at Hidradenitis suppurativa Osteoarthritis of knees, bilateral Dyslipidemia Diabetes type 2, uncontrolled Diverticulitis Hypertension Surgical History Hx of oral surgery (11/28/22) p Incision and Drainage left nasolabial(upper) and lower subperiosteal abscess Removal of teeth 6,7,8,9,10,11,12 and lower teeth 21,22,23,24,25,26,27,28 History of surgical removal of pilonidal cyst History of endometrial ablation History of surgery removal of sweat/hair glands underneath bilateral arms d/t hidradenitis suppurativa History of wisdom tooth extraction H/O dilation and curettage H/O removal of cyst under R eye Family History Aunt Breast cancer Grandfather (Maternal) Myocardial infarction Grandmother (Maternal) History of anesthesia reaction difficulty waking Daughter History of anesthesia reaction under local anesthesia for repair of nerve in her finger--"went unresponsive and had no neurological function for 20 min" ???, slowly came out it Denies family history of Ovarian cancer Prostate cancer Colorectal cancer Social History Smoking Status: Current every day smoker Tobacco Type: Cigarettes Age Started Using Tobacco: 15; packs per day: 1; Cigarettes Per Day: 10 a day (advised); Second Hand Exposure: Yes; Do You Dip or Chew Tobacco: No; Hx Alcohol Use: Yes Alcohol type: beer Alcohol Intake Frequency: Monthly or Less Hx Substance Use: No Preferred Language: German Communication Ability: Effective Visual Impairment: No Limitations Hearing Ability: Hard of Hearing Tight Cooper Required: No Beliefs That Will Affect Care: None marital status: Current Living Situation: Spouse and Family Current Living Situation Comment: lives with , son, daughter, daughter's boyfriend current occupational status: unemployed Feels Safe at Home: Yes Childhood Exposure to Second-Hand Smoke: Yes caffeine: Yes during the past year weight has: remained stable Dental Care, Regularly: No Physical Activity Frequency: Daily Seatbelt Use: always Sunscreen Use: No Assistive Devices: None Review of Systems Review of Systems: The patient denies palpitations, cough, lower extremity swelling, sore throat, fevers, chills, sweats, nausea, vomiting, diarrhea , constipation, abdominal pain, pelvic pain, blood in urine or stool, dysuria, urinary frequency or urgency, lightheadedness, dizziness, headache, memory loss, loss of consciousness, rash, abnormal bruising or bleeding, imbalance, focal weakness, numbness or tingling in arms or legs, generalized arthralgias or myalgias, back or neck pain, or night sweats. The review of systems is otherwise negative other than for that already noted above, and at least 10 systems have been reviewed. Physical Exam Physical Exam: The patient is awake, alert and oriented 3, well developed and well nourished, normocephalic and atraumatic, lying in bed and in no acute distress. HEENT--PERRL, EOMI, mucous membranes and oropharynx normal. Neck--supple. No JVD. No bruits. Thyroid normal, trachea midline, no adenopathy. Heart--normal S1 and S2. No murmurs, rubs or gallops. Lungs--decreased breath sounds throughout. No respiratory distress, no accessory muscle use. Abdomen--normal bowel sounds and soft. Nontender. Nondistended. Morbidly obese Extremities--No edema. Dermatologic--normal skin turgor, normal color, no abnormal lymph nodes, no rash. Neurologic--cranial nerves II through XII grossly intact. Rheumatologic--normal range of motion. Psychiatric--normal affect. Results & Data Results & Data Vital Signs (Past 12 Hours) Vital Signs Temp Pulse Resp BP Pulse Ox O2 Del Method 10/12/24 03:13 71 18 100 Room Air 10/12/24 03:03 84 10/12/24 02:58 36.7 C 79 18 158/93 H 97 Room Air Laboratory Results Laboratory Results WBC 11.07 K/ul (4.8-10.8) H 10/12/24 03:03 RBC 4.88 M/uL (4.20-5.40) 10/12/24 03:03 Hgb 15.1 g/dl (12.0-16.0) 10/12/24 03:03 Hct 46.3 % (37.0-47.0) 10/12/24 03:03 MCV 94.9 fL (80.0-100.0) 10/12/24 03:03 MCH 30.9 pg (25.0-34.0) 10/12/24 03:03 MCHC 32.6 g/dL (32.0-36.0) 10/12/24 03:03 RDW Std Deviation 46.8 fL (36.4-46.3) H 10/12/24 03:03 RDW Coeff of Uri 13.3 % (11.5-14.5) 10/12/24 03:03 Plt Count 285 K/uL (130-400) 10/12/24 03:03 MPV 10.5 fL (9.4-12.4) 10/12/24 03:03 Immature Gran % (Auto) 0.3 % 10/12/24 03:03 Neut % (Auto) 59.6 % 10/12/24 03:03 Lymph % (Auto) 28.6 % 10/12/24 03:03 [place] % (Auto) 9.0 % 10/12/24 03:03 Eos % (Auto) 2.0 % 10/12/24 03:03 Baso % (Auto) 0.5 % 10/12/24 03:03 Neut # (Auto) 6.60 K/uL (1.40-6.50) H 10/12/24 03:03 Lymph # (Auto) 3.17 K/uL (1.20-3.40) 10/12/24 03:03 [place] # (Auto) 1.00 K/uL (0.11-0.59) H 10/12/24 03:03 Eos # (Auto) 0.22 K/uL (0.00-0.50) 10/12/24 03:03 Baso # (Auto) 0.05 K/uL (0.00-0.20) 10/12/24 03:03 Immature Gran # (Auto) 0.03 K/uL (0.01-0.20) 10/12/24 03:03 Sodium 138 mmol/L (136-145) 10/12/24 03:03 Potassium 4.2 mmol/L (3.5-5.1) 10/12/24 03:03 Chloride 105 mmol/L (98-107) 10/12/24 03:03 Carbon Dioxide 25 mmol/L (21-32) 10/12/24 03:03 Anion Gap 8 (3-11) 10/12/24 03:03 BUN 18 mg/dl (6-23) 10/12/24 03:03 Creatinine 1.15 mg/dl (0.6-1.2) 10/12/24 03:03 Est Cr Clr Drug Dosing 79.8 ml/min 10/12/24 03:03 eGFR 57.32 10/12/24 03:03 BUN/Creatinine Ratio 15.7 (10-20) 10/12/24 03:03 Glucose 262 mg/dl (70-99(Fasting)) H 10/12/24 03:03 Calcium 9.4 mg/dl (8.6-10.3) 10/12/24 03:03 Total Bilirubin 0.2 mg/dl (0.2-1.0) 10/12/24 03:03 AST 16 U/L (13-39) 10/12/24 03:03 ALT 23 U/L (7-52) 10/12/24 03:03 Alkaline Phosphatase 99 U/L (34-104) 10/12/24 03:03 Troponin I High Sens 21.1 pg/ml (0-14) H 10/12/24 03:03 Total Protein 7.8 gm/dl (6.0-8.3) 10/12/24 03:03 Albumin 3.8 gm/dl (3.4-5.0) 10/12/24 03:03 Globulin 4.0 gm/dl (2.5-4.0) 10/12/24 03:03 Albumin/Globulin Ratio 1.0 (0.9-2) 10/12/24 03:03 Triglycerides 393 mg/dl (0-150) H 10/12/24 03:03 Cholesterol 216 mg/dl (0-200) H 10/12/24 03:03 LDL Cholesterol, Calc 104 mg/dl 10/12/24 03:03 VLDL Cholesterol, Calc 79 mg/dl (0-30) H 10/12/24 03:03 HDL Cholesterol 33 mg/dl 10/12/24 03:03 Cholesterol/HDL Ratio 6.5 (0-5) H 10/12/24 03:03 Lipase 61 U/L (11-82) 10/12/24 03:03 Impressions Chest X-Ray 10/12/24 03:09 EXAM: XR chest 1V portable CLINICAL HISTORY: CHEST PAIN [facility] TECHNIQUE: An X-ray image of the chest was obtained in the AP projection. COMPARISON: CR and CT dated 06/21/2023. FINDINGS: Pulmonary Parenchyma: Still noted right paramediastinal linear radio-opaque shadow. No evidence of consolidation, collapse, or focal opacities. No pulmonary nodules were identified. No evidence of pleural effusion or pleural thickening. Heart and Mediastinum: Heart size and shape are normal. No mediastinal widening or masses. No hilar or mediastinal lymphadenopathy. Bony Thorax: Bony thorax appears intact without fractures or deformities. IMPRESSION: 1. No acute cardiopulmonary abnormalities identified. 2. Still noted noted right paramediastinal linear radio-opaque shadow, could represent prominent mediastinal fat . Electronically signed by Balwinder Barrera 10-12-2024 04:12 AM Code Status & VTE Plan Code Status Full code VTE Prophylaxis Plan VTE Prophylaxis will be ordered: Yes PG Care Time/CCT Total # of Minutes Spent Total Time Spent with Patient: Total time spent is greater than 50% in coordination of care (as documented) at patient's floor/unit and/or counseling patient: Coding Level of Care Code 94327 INT INP/OBS CARE 3/75MIN Diagnoses NSTEMI (non-ST elevated myocardial infarction) I21.4 Unstable angina I20.0 Metabolic syndrome E88.81 Dyslipidemia E78.5 Diabetes type 2, uncontrolled E11.65 TONY (obstructive sleep apnea) G47.33 Hypertension I10
[2024-10-12] MEDS ORDERED: CARBOHYDRATES FOR HYPOGLYCEMIA PO PRN (04:54)
[2024-10-12] MEDS ORDERED: GLUCOSE 10 TAB/TUBE PO PRN (04:54)
[2024-10-12] MEDS ORDERED: GLUCOSE 40% GEL 15 GM TUBE PO PRN (04:54)
[2024-10-12] MEDS ORDERED: ONDANSETRON INJ 2 MG/ML 2 ML VIAL IV PRN (04:54)
[2024-10-12] MEDS ORDERED: DEXTROSE 50% 50 ML SYRINGE IV PRN (04:54)
[2024-10-12] MEDS ORDERED: GLUCAGON FOR INJ 1 MG VIAL SQ PRN (04:54)
[2024-10-12 04:55] LABS: Chol HDL Ratio 6.5 (0-5)
[2024-10-12] MEDS: METOPROLOL SUCC 50MG EXT REL TAB PO STA (05:31)
--- NOTE | 2024-10-12 05:34 | Billing Data ---
Date of Service October 12, 2024 Coding Level of Care Code 84838 INT INP/OBS CARE
[2024-10-12] MEDS: NITROGLYCERIN 2% OINTMENT 30GM TUBE EXT SCH (06:43)
[2024-10-12] MEDS: LEVOTHYROXINE SODIUM 75 MCG TABLET PO SCH (07:02)
--- NOTE | 2024-10-12 07:56 | Hospitalist Progress Note ---
Date of Service October 12, 2024 Assessment & Plan (1) NSTEMI (non-ST elevated myocardial infarction): Plan: troponin uptrending to 591, currently asymptomatic - trending further values - EKG today unremarkable - NPO midnight tonight for diagnostic cardiac cath procedure tomorrow 10/13/24 - continue on aspirin - one-time dose of Plavix 300mg and lovenox 1mg/kg today 10/12/24 - nitro patches q6 for unstable nature of condition (2) Unstable angina: Plan: as above (3) Dyslipidemia: Plan: rosuvastatin 10mg daily (4) Diabetes type 2, uncontrolled: Plan: She started insulin glargine 3 weeks ago, with initial dosing of 15 units subcu in the a.m., and is most recently up to 53 units - 40 units subQ glargine, NovoLog SSI Hold Jardiance Hemoglobin A1c 9.9 (5) TONY (obstructive sleep apnea): Plan: continue on BiPAP nightly (6) Hypertension: Plan: Continue losartan 50 mg qAM Admission and Anticipated Discharge Date Admission Date: October 12, 2024 Supervising Physician Co-Signing Physician Notes I also saw the patient and confirmed wheeler portions of the history and exam. I also personally discussed the case with cardiology this afternoon. I agree with the impression and plan as noted above. Patient admitted earlier today by overnight team with NSTEMI. No chest pain since admission. Updated plan with cardiology discussed. - Lovenox 1mg/kg now x 1 - Plavix 300 mg x 1 now - Cath in AM - Continue statin and beta agusto Additional in admission note and resident progress note. Subjective Patient was seen and evaluated at bedside this AM, not appearing in acute distress. Overnight, patient reports resolution of chest pain, neck tightness, and R jaw pain, was able to sleep a bit. This morning, she reports no chest pain or SOB, generally feeling well. Denies any particular pain. Has been up to use the bathroom, no issues with urination or stool. Endorses understanding that even though EKG was normal, she may still have had an KS due to increasing troponin. Expresses understanding being NPO midnight for diagnostic cath procedure tomorrow 10/13/24. Denies fever, body aches, chills, headache, neck pain, SOB, chest pain, abdominal pain, pain/swelling in extremities, numbness/tingling. Review of Systems Review of Systems: per HPI Physical Exam Physical Exam: Constitutional: A&Ox3, appears stated age, not in acute distress HEENT: anicteric sclerae, EOM intact Cardiovascular: RRR, +s1/s2, no m/r/g Respiratory: clear to auscultation b/l, equal air entry b/l, no wheezes/rales/rhonchi GI: abdomen soft, +BS, no TTP of abdomen MSK: 5/5 strength in all extremities Neuro: no facial droop, speech intact, no sensory deficits Results & Data Results & Data Vital Signs (Past 12 Hours) Vital Signs Temp Pulse Pulse Resp BP BP Pulse Ox 10/12/24 07:02 75 20 133/73 97 10/12/24 06:00 63 20 118/66 96 10/12/24 05:37 71 16 118/66 97 10/12/24 05:36 10/12/24 03:30 70 25 H 93 10/12/24 03:13 71 18 100 10/12/24 03:03 80 14 98 10/12/24 03:03 84 10/12/24 03:00 158/93 H 10/12/24 02:58 36.7 C 79 18 158/93 H 97 Pulse Ox O2 Del Method O2 Del Method 10/12/24 07:02 Room Air 10/12/24 06:00 Room Air 10/12/24 05:37 Room Air 10/12/24 05:36 98 Room Air 10/12/24 03:30 10/12/24 03:13 Room Air 10/12/24 03:03 10/12/24 03:03 10/12/24 03:00 10/12/24 02:58 Room Air Laboratory Results Abnormal lab results 10/12/24 10/12/24 10/12/24 Range/Units 03:03 05:10 10:15 WBC 11.07 H (4.8-10.8) K/ul RDW Std Deviation 46.8 H (36.4-46.3) fL Neut # (Auto) 6.60 H (1.40-6.50) K/uL [place] # (Auto) 1.00 H (0.11-0.59) K/uL Glucose 262 H (70-99(Fasting)) mg/dl POC Glucose (70-99) mg/dl Hemoglobin A1c 9.9 H (4.5-5.6) % Troponin I High Sens 21.1 H 120.3 H* D 519.3 H* D (0-14) pg/ml Triglycerides 393 H (0-150) mg/dl Cholesterol 216 H (0-200) mg/dl VLDL Cholesterol, Calc 79 H (0-30) mg/dl Cholesterol/HDL Ratio 6.5 H (0-5) // Range/Units 12:50 WBC (4.8-10.8) K/ul RDW Std Deviation (36.4-46.3) fL Neut # (Auto) (1.40-6.50) K/uL [place] # (Auto) (0.11-0.59) K/uL Glucose (70-99(Fasting)) mg/dl POC Glucose 189 H (70-99) mg/dl Hemoglobin A1c (4.5-5.6) % Troponin I High Sens (0-14) pg/ml Triglycerides (0-150) mg/dl Cholesterol (0-200) mg/dl VLDL Cholesterol, Calc (0-30) mg/dl Cholesterol/HDL Ratio (0-5) Resident Activity Tracking Resident Involvement: Resident Care Provided Care Provided: Adult [facility] Medicine
[2024-10-12 08:06] LABS: Estimated Average Glucose 237 mg/dl; Hemoglobin A1C 9.9 % (4.5-5.6)
[2024-10-12] MEDS: ARTIFICIAL TEARS OP SCH (08:12)
[2024-10-12] MEDS: FLUTICASONE PROPIONATE NA SPR 16 GM BTL NAE SCH (08:13)
[2024-10-12] MEDS: LOSARTAN POTASSIUM 50 MG TAB PO SCH (08:14)
[2024-10-12] MEDS: LANTUS PER UNIT CHARGE SQ SCH (08:14)
[2024-10-12] MEDS: ASPIRIN 81 MG ECTAB PO SCH (08:14)
[2024-10-12] MEDS: ROSUVASTATIN CALCIUM 10 MG TAB PO SCH (08:14)
[2024-10-12] MEDS: PANTOprazole 40 MG TAB PO SCH (08:14)
[2024-10-12] MEDS ORDERED: ROSUVASTATIN CALCIUM 5 MG TAB PO SCH (09:00)
[2024-10-12] MEDS ORDERED: NON-FORMULARY MEDICATION (Insulin Glargine [Lantus Solostar U-100 Insulin] 100 unit/mL (3 SQ SCH (09:00)
[2024-10-12] MEDS: INSULIN ASPART PER UNIT CHARGE SC SCH (09:25)
[2024-10-12] MEDS ORDERED: ENOXAPARIN 1 MG/KG SQ ONE (14:27)
--- NOTE | 2024-10-12 15:39 | XCELERA ---
[id number] \\[id number]
[2024-10-12] MEDS: ENOXAPARIN 150 MG/ML SYR SQ ONE (15:49)
[2024-10-12] MEDS: CLOPIDOGREL BISULFATE 300 MG TAB PO STA (15:49)
--- NOTE | 2024-10-12 15:50 | Electrocardiogram Report ---
Test Reason : Blood Pressure : */* mmHG Vent. Rate : 76 BPM Atrial Rate : 76 BPM P-R Int : 142 ms QRS Dur : 84 ms QT Int : 366 ms P-R-T Axes : 59 -29 29 degrees QTcB Int : 411 ms Normal sinus rhythm Low voltage QRS Borderline ECG When compared with ECG of 21-Jun-2023 05:54, No significant change was found Confirmed by Feroz Epps ([id number]) on 10/12/2024 3:50:14 PM Referred By: REFERRED SELF Confirmed By: Feroz Epps
--- NOTE | 2024-10-12 18:34 | Cardiology Consultation ---
Date of Consultation October 12, 2024 Assessment & Plan (1) Non-ST elevation SD (NSTEMI): (2) Chest pain: Plan 1. Chest pain: Concerning for an acute coronary syndrome. She has multiple risk factors for coronary disease to include obesity, poorly controlled diabetes, hypertension and tobacco use. The character of her symptoms is concerning and she has elevated cardiac biomarkers. I do not think that stress testing is warranted giving the high probability of coronary disease. However, I did provide this as an option to the patient. I think she will be better served by a more definitive test such as coronary angiography. She is familiar with the procedure as her has had several. I described the procedure and its attendant risks. Again, we discussed alternatives. At this point she is in favor and we will plan on proceeding tomorrow as she has eaten lunch today. 2. Hyperlipidemia: As noted above she has multiple risk factors of coronary disease. Her LDL measured this morning was not at goal. She would likely benefit from more aggressive lipid reduction and a higher dose of rosuvastatin. She will be advised to discontinue tobacco use History of Present Illness Reason for Consultation: Chest pain, elevated troponin Requesting Physician: Wes Attending Physician: Dieter Urbano, DO History of Present Illness The patient is a 54-year-old woman with a history of sinus tachycardia who presented to the emergency room for symptoms of chest discomfort. Patient stated that a few days ago she began experiencing fairly random episodes of chest pressure. This was described as precordial in nature and did have some radiation to the neck and jaw. The episodes themselves occurred at rest. 2 episodes were quite brief in duration lasting just a few minutes. However, last evening she had an episode which was more intense and lasted 20 to 30 minutes by report. There were no pleuritic symptoms. Perhaps some mild dyspnea associated with the episode. No dizziness or lightheadedness. The patient tried different positions to become more comfortable and did take an aspirin at home. She felt that her symptoms started to improve on her way to the hospital and by the time she reached the emergency room had effectively resolved. No recurrence here in the hospital. She is a very sedentary individual. She did not endorse symptoms associated with activity. She is able to do mild housework and ambulation without chest pain or dyspnea. She does not exercise regularly. In the past she has had some fast heartbeats and has been evaluated for tachycardia. This involved an echocardiogram which was reportedly normal. Allergies Allergy/AdvReac Type Severity Reaction Status Date / Time latex Allergy Intermediate Rash Verified 07/13/24 14:05 codeine AdvReac Intermediate hallucinati Verified 07/13/24 14:05 ons Home Medications Medication Instructions Recorded Confirmed Type BI-PAP 03/12/22 07/13/24 History blood sugar diagnostic #300 ea 07/02/23 07/13/24 Rx lancets #300 ea 07/02/23 07/13/24 Rx fluticasone propionate 50 2 spray intranasal DAILY #16 grams 07/26/23 10/12/24 Rx mcg/actuation nasal spray,suspension (Flonase Allergy Relief) carboxymethylcellulose sodium 1 % 1 drp ophthalmic (eye) BID #15 mL 07/13/24 10/12/24 Rx eye drops (Artificial Tears (carboxymethylcellulose)) insulin glargine 100 unit/mL (3 15 unit (0.15 mL) subcut QAM #15 mL 07/14/24 10/12/24 Rx mL) subcutaneous pen (Lantus Solostar U-100 Insulin) pen needle, diabetic 31 gauge x #50 ea 07/27/24 07/27/24 Rx 5/16" blood-glucose sensor (FreeStyle #2 ea 09/15/24 09/15/24 Rx Satya 3 Plus Sensor device) rosuvastatin 5 mg tablet 5 mg PO DAILY #90 tabs 09/15/24 10/12/24 Rx empagliflozin 25 mg tablet 25 mg PO DAILY #30 tabs 09/23/24 10/12/24 Rx (Jardiance) levothyroxine 75 mcg tablet 75 mcg PO QAM #90 tabs 09/23/24 10/12/24 Rx losartan 50 mg tablet 50 mg PO QAM #90 tabs 09/23/24 10/12/24 Rx metoprolol succinate 25 mg 75 mg (3 x 25 mg) PO HS #270 tabs 09/23/24 10/12/24 Rx tablet,extended release 24 hr pantoprazole 40 mg tablet,delayed 40 mg PO DAILY #90 tabs 09/23/24 10/12/24 Rx release (Protonix) Patient History Medical History B12 deficiency Morbid obesity with BMI of 40.0-44.9, adult History of anesthesia reaction BP dropped with endometrial ablation History of kidney stones Acid reflux History of COVID-19 diagnosed 2019--mild symptoms, no symptoms now Diabetic peripheral neuropathy associated with type 2 diabetes mellitus Primary hypothyroidism TONY (obstructive sleep apnea) bipap at hs Hidradenitis suppurativa Osteoarthritis of knees, bilateral Dyslipidemia Diabetes type 2, uncontrolled Diverticulitis Hypertension Surgical History Hx of oral surgery (11/28/22) p Incision and Drainage left nasolabial(upper) and lower subperiosteal abscess Removal of teeth 6,7,8,9,10,11,12 and lower teeth 21,22,23,24,25,26,27,28 History of surgical removal of pilonidal cyst History of endometrial ablation History of surgery removal of sweat/hair glands underneath bilateral arms d/t hidradenitis suppurativa History of wisdom tooth extraction H/O dilation and curettage H/O removal of cyst under R eye Family History Aunt Breast cancer Grandfather (Maternal) Myocardial infarction Grandmother (Maternal) History of anesthesia reaction difficulty waking Daughter History of anesthesia reaction under local anesthesia for repair of nerve in her finger--"went unresponsive and had no neurological function for 20 min" ???, slowly came out it Denies family history of Ovarian cancer Prostate cancer Colorectal cancer Social History Smoking Status: Current every day smoker Tobacco Type: Cigarettes Age Started Using Tobacco: 15; packs per day: 1; Cigarettes Per Day: 10 a day (advised); Second Hand Exposure: Yes; Do You Dip or Chew Tobacco: No; Hx Alcohol Use: No Hx Substance Use: No Preferred Language: Occitan Communication Ability: Effective Visual Impairment: No Limitations Hearing Ability: Hard of Hearing Precision Thread Grinder Operator Required: No Beliefs That Will Affect Care: None marital status: Current Living Situation: Spouse Current Living Situation Comment: lives with , son, daughter, daughter's boyfriend current occupational status: unemployed Feels Safe at Home: Yes Childhood Exposure to Second-Hand Smoke: Yes caffeine: Yes during the past year weight has: remained stable Dental Care, Regularly: No Physical Activity Frequency: Daily Seatbelt Use: always Sunscreen Use: No Assistive Devices: None Review of Systems Review of Systems: Per HPI. She has diabetic neuropathy in both feet. She states that her blood sugars are more elevated recently Physical Exam Physical Exam: She is alert and oriented x3. Mood affect appear normal. She answered all questions appropriately. HEENT: Sclerae are anicteric. Pupils are equal and reactive to light and accommodation. Extraocular movements were intact. Neuro: Cranial nerves intact Lungs: Lungs are clear to auscultation bilaterally. There are no rales wheezes or rhonchi. She has normal respiratory effort without use of accessory muscles. There is normal pulmonary excursion. Cardiac: The rhythm was regular. S1 and S2 were normal. There are no murmurs on examination. The PMI was not markedly displaced on palpation. Extremities: Patient has bilateral radial pulses that are equal in intensity. There is no evidence cyanosis or clubbing. There was no evidence of significant peripheral edema bilaterally. Skin: There are no rashes noted on examination today. Results & Data Vital Signs (Past 12 Hours) Vital Signs Temp Pulse Pulse Resp BP BP Pulse Ox 10/12/24 16:05 10/12/24 15:43 73 10/12/24 15:15 36.8 C 70 16 101/66 96 10/12/24 14:28 66 15 120/75 98 10/12/24 12:47 74 16 128/66 96 10/12/24 11:48 72 17 121/67 96 10/12/24 10:44 36.9 C 66 18 112/66 96 10/12/24 08:03 64 23 94 10/12/24 08:00 109/70 10/12/24 08:00 75 22 109/70 96 10/12/24 07:02 75 20 133/73 97 O2 Del Method 10/12/24 16:05 BiPAP 10/12/24 15:43 10/12/24 15:15 Room Air 10/12/24 14:28 Room Air 10/12/24 12:47 Room Air 10/12/24 11:48 Room Air 10/12/24 10:44 Room Air 10/12/24 08:03 10/12/24 08:00 10/12/24 08:00 Room Air 10/12/24 07:02 Room Air Laboratory Results Abnormal Lab Results 10/12/24 10/12/24 10/12/24 03:03 05:10 10:15 WBC 11.07 H RBC 4.88 Hgb 15.1 Hct 46.3 MCV 94.9 MCH 30.9 MCHC 32.6 RDW Std Deviation 46.8 H RDW Coeff of Rui 13.3 Plt Count 285 MPV 10.5 Immature Gran % (Auto) 0.3 Neut % (Auto) 59.6 Lymph % (Auto) 28.6 [place] % (Auto) 9.0 Eos % (Auto) 2.0 Baso % (Auto) 0.5 Neut # (Auto) 6.60 H Lymph # (Auto) 3.17 [place] # (Auto) 1.00 H Eos # (Auto) 0.22 Baso # (Auto) 0.05 Immature Gran # (Auto) 0.03 Sodium 138 Potassium 4.2 Chloride 105 Carbon Dioxide 25 Anion Gap 8 BUN 18 Creatinine 1.15 Est Cr Clr Drug Dosing 79.8 eGFR 57.32 BUN/Creatinine Ratio 15.7 Glucose 262 H POC Glucose Estimat Average Glucose 237 Hemoglobin A1c 9.9 H Calcium 9.4 Total Bilirubin 0.2 AST 16 ALT 23 Alkaline Phosphatase 99 Troponin I High Sens 21.1 H 120.3 H* D 519.3 H* D Total Protein 7.8 Albumin 3.8 Globulin 4.0 Albumin/Globulin Ratio 1.0 Triglycerides 393 H Cholesterol 216 H LDL Cholesterol, Calc 104 VLDL Cholesterol, Calc 79 H HDL Cholesterol 33 Cholesterol/HDL Ratio 6.5 H Lipase 61 10/12/24 12:50 WBC RBC Hgb Hct MCV MCH MCHC RDW Std Deviation RDW Coeff of Rui Plt Count MPV Immature Gran % (Auto) Neut % (Auto) Lymph % (Auto) [place] % (Auto) Eos % (Auto) Baso % (Auto) Neut # (Auto) Lymph # (Auto) [place] # (Auto) Eos # (Auto) Baso # (Auto) Immature Gran # (Auto) Sodium Potassium Chloride Carbon Dioxide Anion Gap BUN Creatinine Est Cr Clr Drug Dosing eGFR BUN/Creatinine Ratio Glucose POC Glucose 189 H Estimat Average Glucose Hemoglobin A1c Calcium Total Bilirubin AST ALT Alkaline Phosphatase Troponin I High Sens Total Protein Albumin Globulin Albumin/Globulin Ratio Triglycerides Cholesterol LDL Cholesterol, Calc VLDL Cholesterol, Calc HDL Cholesterol Cholesterol/HDL Ratio Lipase Diagnostic Findings Chest x-ray did not demonstrate any acute cardiopulmonary findings. Echocardiogram performed 10/12/2024: Normal LV systolic function with ejection fraction 55 to 60%. Normal wall motion. No significant valvular heart disease. ECG Additional Comments: EKG obtained at time admission revealed normal sinus rhythm, some mild nonspecific ST and T wave changes. PG Care Time/CCT Total # of Minutes Spent Total Time Spent with Patient: Total time spent is greater than 50% in coordination of care (as documented) at patient's floor/unit and/or counseling patient: Coding Level of Care Code 41877 IN/OBS CONSULT LVL 4,60M Diagnoses Non-ST elevation SD (NSTEMI) I21.4 Chest pain R07.9
[2024-10-12] MEDS: ACETAMINOPHEN 325 MG TAB PO PRN (19:38)
[2024-10-12] MEDS: METOPROLOL SUCC 25MG EXT REL TAB PO SCH (20:44)
--- NOTE | 2024-10-13 06:34 | Hospitalist Progress Note ---
Date of Service October 13, 2024 Assessment & Plan (1) NSTEMI (non-ST elevated myocardial infarction): Plan: troponin peaking around 750 last night 10/12/24 around 6pm, has been downtrending since then -> 300 the current morning 10/13/24, continues to be asymptomatic - trending further values - cardiac catheterization procedure with Dr. Epps scheduled at 9am 10/13/24, further recommendations per cath findings by cardiology - continue on aspirin 81mg daily, consider increasing rosuvastatin 10mg daily to 20mg - starting on plavix 75mg qAM by Dr. Epps - continue metoprolol succinate 75mg qHS - nitro patches q6 for unstable nature of condition (2) Unstable angina: Plan: as above (3) Dyslipidemia: Plan: increase rosuvastatin 10mg daily to 20mg daily - LDL currently in low 100s; goal LDL <70 (4) Diabetes type 2, uncontrolled: Plan: She started insulin glargine 3 weeks ago, with initial dosing of 15 units subcu in the a.m., and is most recently up to 53 units - 40 units subQ glargine, NovoLog SSI Hold Jardiance Hemoglobin A1c 9.9 (5) TONY (obstructive sleep apnea): Plan: continue on BiPAP nightly (6) Hypertension: Plan: Continue losartan 50 mg qAM Admission and Anticipated Discharge Date Admission Date: October 12, 2024 Supervising Physician Co-Signing Physician Notes I also saw the patient independently and confirmed wheeler portions of the history a nd exam. I discussed the case with the resident. I agree with the impression and plan as noted above. Upon my afternoon visit, the patient is eating lunch post cath. at bedside. She has no complaints; no chest pain or dyspnea. EXAM 130/85, 60 Pleasant. Alert and oriented. NAD CV regular Lungs CTA Abd soft and non tender LABS CBC and BMP without significant abnormalities IMPRESSION AND PLAN CAD S/P stent to Cx Tobacco Abuse DM Obesity/TONY Additional per resident progress note. Subjective Patient was seen and evaluated at bedside this AM, not appearing in acute distress. Overnight, patient continues to deny recurrence of chest pain, neck tightness, and R jaw pain, and was able to sleep a bit. Has been NPO since midnight of 10/13/24 for cardiac cath at 9am the same day (today). This morning, she reports no chest pain or SOB, generally feeling well. Denies any particular pain. Has been up to use the bathroom, no issues with urination or stool. Endorses understanding that about troponin level that seems to have peaked last night in the 700s and since then has been downtrending. Understanding of cardiac catheterization procedure that is scheduled for 9am. Denies fever, body aches, chills, headache, neck pain, SOB, chest pain, a bdominal pain, pain/swelling in extremities, numbness/tingling. Review of Systems Review of Systems: per HPI Physical Exam Physical Exam: Constitutional: A&Ox3, appears stated age, not in acute distress HEENT: anicteric sclerae, EOM intact Cardiovascular: RRR, +s1/s2, no m/r/g Respiratory: clear to auscultation b/l, equal air entry b/l, no wheezes/rales/rhonchi GI: abdomen soft, +BS, no TTP of abdomen MSK: 5/5 strength in all extremities Neuro: no facial droop, speech intact, no sensory deficits Results & Data Results & Data Vital Signs (Past 12 Hours) Vital Signs Temp Pulse Pulse Resp BP Pulse Ox Pulse Ox 10/13/24 05:00 92 10/13/24 04:00 100/57 L 10/13/24 03:43 58 L 19 92 10/13/24 00:00 65 10/12/24 23:34 90 20 92 10/12/24 22:54 36.7 C 63 16 125/76 95 10/12/24 19:47 36.9 C 70 18 116/72 95 O2 Del Method O2 Del Method FiO2 10/13/24 05:00 Room Air 10/13/24 04:00 10/13/24 03:43 21 10/13/24 00:00 10/12/24 23:34 10/12/24 22:54 Room Air 10/12/24 19:47 Room Air Laboratory Results Abnormal lab results 10/12/24 10/13/24 10/13/24 Range/Units 18:20 00:39 06:06 WBC 11.22 H (4.8-10.8) K/ul RDW Std Deviation 47.2 H (36.4-46.3) fL Lymph # (Auto) 4.08 H (1.20-3.40) K/uL [place] # (Auto) 0.99 H (0.11-0.59) K/uL Activ Coag Time Kaolin (94-140) SECONDS Chloride 108 H (98-107) mmol/L Creatinine 1.22 H (0.6-1.2) mg/dl Glucose 161 H (70-99(Fasting)) mg/dl POC Glucose (70-99) mg/dl Troponin I High Sens 750.6 H* D 487.5 H* D 300.8 H* D (0-14) pg/ml Albumin 3.3 L (3.4-5.0) gm/dl 10/13/24 10/13/24 10/13/24 Range/Units 06:09 10:01 10:13 WBC (4.8-10.8) K/ul RDW Std Deviation (36.4-46.3) fL Lymph # (Auto) (1.20-3.40) K/uL [place] # (Auto) (0.11-0.59) K/uL Activ Coag Time Kaolin 208 H 232 H (94-140) SECONDS Chloride (98-107) mmol/L Creatinine (0.6-1.2) mg/dl Glucose (70-99(Fasting)) mg/dl POC Glucose 161 H (70-99) mg/dl Troponin I High Sens (0-14) pg/ml Albumin (3.4-5.0) gm/dl 10/13/24 10/13/24 Range/Units 10:40 11:45 WBC (4.8-10.8) K/ul RDW Std Deviation (36.4-46.3) fL Lymph # (Auto) (1.20-3.40) K/uL [place] # (Auto) (0.11-0.59) K/uL Activ Coag Time [place] 232 H (94-140) SECONDS Chloride (98-107) mmol/L Creatinine (0.6-1.2) mg/dl Glucose (70-99(Fasting)) mg/dl POC Glucose 140 H (70-99) mg/dl Troponin I High Sens (0-14) pg/ml Albumin (3.4-5.0) gm/dl Resident Activity Tracking Resident Involvement: Resident Care Provided Care Provided: [facility]
[2024-10-13 06:40] LABS: Hematocrit (blood only) 44.9 % (37.0-47.0); Hemoglobin 14.4 g/dl (12.0-16.0); Mean Corpuscular Hemoglobin 30.7 pg (25.0-34.0); Mean Corpuscular Hgb Conc 32.1 g/dL (32.0-36.0); Mean Corpuscular Volume 95.7 fL (80.0-100.0); Mean Platelet Volume 10.3 fL (9.4-12.4); Platelet Count 270 K/uL (130-400); RDW Coefficient of Variation 13.3 % (11.5-14.5); RDW Standard Deviation 47.2 fL (36.4-46.3); Red Blood Count 4.69 M/uL (4.20-5.40); White Blood Count 11.22 K/ul (4.8-10.8)
[2024-10-13 07:02] LABS: Albumin Level 3.3 gm/dl (3.4-5.0); BUN Creatinine Ratio 16.4 (10-20); Calcium 9.1 mg/dl (8.6-10.3); Creatinine Clr Calc Pharmacy 74.4 ml/min; Magnesium 1.8 mg/dl (1.7-2.4); Phosphorus 3.4 mg/dl (2.5-4.9); Potassium 4.2 mmol/L (3.5-5.1)
[2024-10-13 07:17] LABS: Basophils # (auto) 0.05 K/uL (0.00-0.20); Basophils % (auto) 0.4 %; Eosinophils # (auto) 0.23 K/uL (0.00-0.50); Immature Granulocytes # (auto) 0.03 K/uL (0.01-0.20); Immature Granulocytes % (auto) 0.3 %; Lymphocytes # (auto) 4.08 K/uL (1.20-3.40); Lymphocytes % (auto) 36.4 %; Monocytes # (auto) 0.99 K/uL (0.11-0.59); Monocytes % (auto) 8.8 %; Neutrophils # (auto) 5.84 K/uL (1.40-6.50); Neutrophils % (auto) 52.1 %
[2024-10-13] MEDS: CLOPIDOGREL BISULFATE 75 MG TAB PO SCH (08:08)
--- NOTE | 2024-10-13 09:27 | Pre Anesthesia Assessment ---
Date of Service October 13, 2024 Pre Sedation Assessment Vital Signs Temp Pulse Pulse Resp BP Pulse Ox Pulse Ox 10/13/24 08:00 36.9 C 59 L 18 123/73 97 10/13/24 07:17 36.7 C 65 19 122/73 96 10/13/24 05:00 92 10/13/24 04:00 100/57 L 10/13/24 03:43 58 L 19 92 10/13/24 00:00 65 10/12/24 23:34 90 20 92 10/12/24 22:54 36.7 C 63 16 125/76 95 10/12/24 19:47 36.9 C 70 18 116/72 95 10/12/24 16:05 10/12/24 15:43 73 10/12/24 15:15 36.8 C 70 16 101/66 96 10/12/24 14:28 66 15 120/75 98 10/12/24 12:47 74 16 128/66 96 10/12/24 11:48 72 17 121/67 96 10/12/24 10:44 36.9 C 66 18 112/66 96 O2 Del Method O2 Del Method FiO2 10/13/24 08:00 Room Air 10/13/24 07:17 Room Air 10/13/24 05:00 Room Air 10/13/24 04:00 10/13/24 03:43 21 10/13/24 00:00 10/12/24 23:34 10/12/24 22:54 Room Air 10/12/24 19:47 Room Air 10/12/24 16:05 BiPAP 10/12/24 15:43 10/12/24 15:15 Room Air 10/12/24 14:28 Room Air 10/12/24 12:47 Room Air 10/12/24 11:48 Room Air 10/12/24 10:44 Room Air Cardiovascular + regular rhythm Respiratory + respiratory effort normal Pre-Sedation Airway Assessment Smoking Status: Current every day smoker Hx Sleep Apnea: No Hx Difficult Intubation: No Short, Thick Neck: No Thyromental Distance: > or= 3.5 Finger Breadths Oral Cavity: + Loose Teeth Mallampati Class: III ASA: ASA3 NPO Status Date of Last Intake of Fluids: 10/13/24 Time of Last Intake of Fluids: 06:00 Date of Last Intake of Solid Food: 10/12/24 Time of Last Intake of Solid Foods: 23:30 Procedure Planning Contraindications for Sedation: none Current Medications Reviewed: Yes Notes The planned sedation has been discussed with the patient. Informed Consent was obtained. I have identified the patient, determined the appropriateness of sedation and have assessed the patient immediately prior to the procedure. All medicine(s) and interventions are by my order.
[2024-10-13] MEDS: NITROGLYCERIN/D5W 100MCG/ML 20ML SYR ONE (09:43)
[2024-10-13] MEDS: niCARdipine 2,000 MCG/20 ML SYR ONE (09:43)
[2024-10-13] MEDS: fentaNYL citrate PF 100 MCG/2 ML VIAL ONE (10:31)
[2024-10-13] MEDS: MIDAZOLAM HCL 1 MG/ML 2ML VIAL ONE ×2 (10:32)
[2024-10-13] MEDS: HEPARIN (PORCINE) 1000 UNIT/ML 10 ML (CATH LAB USE ONLY) ONE ×2 (10:32→12:32)
[2024-10-13] MEDS: IODIXANOL (VISIPAQUE) 320 MG/ML 100ML IV ONE (10:41)
--- NOTE | 2024-10-13 11:02 | Cardiac Catheterization ---
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 Cardiac Status Clinical evaluation leading to the procedure CAD Presenation: Non STEMI Diagnostic Physicians Name: Feroz Epps MD Closure Device Recommendations: PCI without planned CABG Cardiac Cath Procedure Full Procedure Date October 13, 2024 Pre-Procedure Diagnosis Pre-Procedure Diagnosis: Non STEMI AUC Score AUC Score: 7 Post-Procedure Diagnosis Post-Procedure Diagnosis: Severe CAD Procedure(s) Performed Procedure(s) Performed: Coronary Angiography and Left Heart Cath Circuit Design Engineer Feroz Epps MD Estimated Blood Loss Estimated Blood Loss: 8cc Medication(s) Medication(s): Fentanyl, Heparin, Lidocaine 1%, Nicardipine, Nitroglycerin and Versed Summary of Findings Procedure performed: Left heart catheterization, selective coronary angiography Staff director global development: Feroz Epps MD Indication: The patient is a 54-year-old woman who presented to the hospital wit h symptoms of chest discomfort and elevated cardiac biomarkers. Based on her symptoms she was advised to consider coronary angiography Procedure in detail: The patient was informed of the risks benefits and alternatives to the intended procedure, he understood such and wished to proceed. She was taken to the cardiac catheterization suite in a fasting state. Conscious sedation was administered per protocol and the patient was monitored electrocardiographically throughout today's procedure. The left wrist area was prepped and draped in usual sterile fashion. This area was anesthetized using subcutaneous administration of a lidocaine solution. The right radial artery was then accessed using Seldinger technique, and a arterial sheath was placed at this site over a guidewire. The sheath was used to facilitate passage of the cardiac catheter for coronary angiography and left heart catheterization. Coronary angiogram was then obtained in multiple orthogonal views prior to removal of the catheter. At the conclusion of the procedure the sheath was removed and hemostasis was achieved at the access site using manual pressure. The patient tolerated procedure well, there were no immediate complications. Equipment used: 5 [place] 4, 5 [place] 2 Findings: Coronary angiography Left Main: Left main was normal in size and caliber and bifurcated normally into the left anterior sending left circumflex arteries Left anterior descending colon left anterior sending was a large transapical vessel. It produced 2 diminutive diagonals and a medium-sized 3rd diagonal branch. He had had a 70% stenosis in its midportion. Left circumflex: Left circumflex was a nondominant vessel. Produced a single large obtuse marginal branch. It had a proximal and more distal stenosis with diseased segment in between. Maximal stenosis estimated at 80%. Right coronary artery: Right coronary was a dominant vessel. It had luminal irregularities and proximal 50% stenosis in the PDA. Impression: Severe coronary disease involving the left circumflex and LAD Right dominant coronary system Normal left ventricular filling pressures No evidence of aortic stenosis Hemodynamics Rest Ao:: 108/63 mmHg Final Ao: 132/74 mmHg LV: 118/8 mmHg Left ventricular end-diastolic pressure 12 mmHg Recommendations Recommendations: PCI without planned CABG Specimens Specimens: None Radiation Exposure (mGy) 1241 Contrast (mls) 40 Procedural Complication(s) None Disposition PCU I attest to the content of the Intraoperative Record and any orders documented therein. Any exceptions are noted below. [facility] Card Cath Procedure Codes Cardiac Catheterization Procedure 1: Cardiovascular Cath Procedures: 90113 Coronaries and LHC (+/-LV) Moderate Sedation Procedure 1: Sedation/Anesthesia: 88699 Mod Sedation by the same physician;Init15 Min Child Age 5 & Up Procedure 2: Sedation/Anesthesia: 67032 Mod Sedation by the same physician; Ea [id number] Minutes PG Care Time/CCT Total # of Minutes Spent Total Time Spent with Patient: Total time spent is greater than 50% in coordination of care (as documented) at patient's floor/unit and/or counseling patient:
--- NOTE | 2024-10-13 11:10 | Post Anesthesia Assessment ---
Date of Service October 13, 2024 Post Sedation Assessment Vital Signs Temp Pulse Pulse Resp BP Pulse Ox Pulse Ox 10/13/24 11:05 63 18 116/74 94 10/13/24 10:50 68 18 149/84 H 96 10/13/24 09:00 55 L 10/13/24 08:00 36.9 C 59 L 18 123/73 97 10/13/24 07:17 36.7 C 65 19 122/73 96 10/13/24 05:00 92 10/13/24 04:00 100/57 L 10/13/24 03:43 58 L 19 92 10/13/24 00:00 65 10/12/24 23:34 90 20 92 10/12/24 22:54 36.7 C 63 16 125/76 95 10/12/24 19:47 36.9 C 70 18 116/72 95 10/12/24 16:05 10/12/24 15:43 73 10/12/24 15:15 36.8 C 70 16 101/66 96 10/12/24 14:28 66 15 120/75 98 10/12/24 12:47 74 16 128/66 96 10/12/24 11:48 72 17 121/67 96 O2 Del Method O2 Del Method FiO2 10/13/24 11:05 Room Air 10/13/24 10:50 Room Air 10/13/24 09:00 10/13/24 08:00 Room Air 10/13/24 07:17 Room Air 10/13/24 05:00 Room Air 10/13/24 04:00 10/13/24 03:43 21 10/13/24 00:00 10/12/24 23:34 10/12/24 22:54 Room Air 10/12/24 19:47 Room Air 10/12/24 16:05 BiPAP 10/12/24 15:43 10/12/24 15:15 Room Air 10/12/24 14:28 Room Air 10/12/24 12:47 Room Air 10/12/24 11:48 Room Air Recovery Score Activity: Moves 4 extremities Respiration: Deep Breath/Cough Circulation: +/-20% PreAnes Value Consciousness: Fully Awake Oxygen Saturation: > 92% On Room Air Post Anesthesia Score: 10 Discharge Sedation Level of Care: Fast Track Phase II Post Sedation Plan On clinical assessment, the patient appears to have tolerated the sedation without complications. Patient is recovering as anticipated. Patient will continue to be monitored by nursing and may be discharged when sedation discharge criteria are met per below protocol. Upon Completions of procedure up to 15 minutes continue every 5 minute vital signs and the P.A.R. score; then discharge to a Phase I or Fast Track to Phase II per the following guidelines: * Discharge Patient to appropriate Phase II area if PAR is 8 or greater or return to pre- procedure baseline. The post - procedure orders will be as directed. * If PAR score is less than 8 or not return to pre-procedure baseline then patient will follow Phase I monitoring till PAR is reached for Phase II. The Phase I may be done in procedure room or may call to secure a Phase I area. * If naloxone or flumazenil are used for reversal, hold in Phase I for continued monitoring from when last reversal dose was given for a minimum of 60 minutes or longer pending the nurse and/or physician discretion of patient condition before discharge to Phase II. Please call the Sedation Physician to re-evaluate and complete post-note for discharge to Phase II area. Do NOT discharge from procedure sedation or Phase 1 until post- sedation evaluation note is complete by procedure /sedation MD Sedation Discharge Instructions to be given to the patient at discharge to home. [facility] [place] Procedure Codes (Charges) Indication for Procedure Indication for procedure: NSTEMI
--- NOTE | 2024-10-13 11:17 | Cardiac Catheterization ---
[facility] Data: Hospital Recruiter Cardiac Status Clinical evaluation leading to the procedure CAD Presenation: Non STEMI Anginal Classification: CCS IV Coronary Anatomy Dominant: Right (See diagnostic catheter report, Dr. Epps) Diagnostic Physicians Name: Epifanio Watson MD, PhD Closure Device Percutaneous Entry Location: Radial Closure Device: Radial Band Recommendations: Medical Therapy and/or Counseling and PCI without planned CABG PCI Indication: PCI for high risk Non-JOSE Lesion Segment Name: Mid circumflex Culprit Artery: Yes Stenosis Prior to Rx (%): 90 to 95% Chronic Total Occlusion: No Pre-Procedure JOANN Flow: 2 Previously Treated Lesion: No Lesion Complexity: Non-High/Non-C Lesion Length (mm): 32 Thrombus Present: No Bifurcation Lesion: No Guidewire Across Lesion: Yes Intraprocedure Events Significant Disection: No Perforation: No Cardiac Cath Procedure Full Procedure Date October 13, 2024 Pre-Procedure Diagnosis Pre-Procedure Diagnosis: Non STEMI AUC Score AUC Score: 09 Post-Procedure Diagnosis Post-Procedure Diagnosis: Severe CAD and Successful PCI Procedure(s) Performed Procedure(s) Performed: Drug Eluting Stent Criminal Judge Epifanio Watson MD, PhD Estimated Blood Loss Estimated Blood Loss: 5 cc Medication(s) Medication(s): Fentanyl, Heparin, Hydralazine, Lidocaine 1%, Nicardipine, Nitroglycerin and Versed Summary of Findings Brief description: Patient was already shaved and prepped. Had been sedated for her diagnostic cath which was just completed by Dr. Epps. She had a 6 Kyr[place] radial artery glide sheath in the left radial artery. She had already been given heparin for the diagnostic portion as well. I was asked to perform PCI on her circumflex. ACT was checked and additional heparin was provided as needed throughout the case to maintain therapeutic anticoagulation. Initially tried to use a 6 Kyr[place]z EBU 3.0 guide catheter to engage the left main for PCI. However, from the left radial approach the geometry of her vessels was not favorable. Therefore, we changed to a 5 Kyr[place]z AL 2 guide catheter. 6 Kyr[place]z could not be advanced through the radial artery. A BMW universal guidewire was then advanced and positioned distally in the OM branch of the circumflex. Lesions were predilated using a 2.5 x 15 mm trek balloon at nominal pressure of 8 zelalem x3, then most proximal lesion at 14 zelalem. A 2.75 x 26 mm Roddy drug-eluting stent was then advanced and positioned to cover the distal lesion as well as the intervening midportion of the vessel. It was deployed at 15 zelalem. The balloon was then deflated and removed. A 3.0 x 12 mm Roddy drug-eluting stent was then advanced and positioned with its distal edge just within the proximal edge of the first stent. It was therefore deployed in an overlap fashion at 14 atmospheres. The stent balloon was then deflated and advanced to cover more of the overlap segment where it was inflated to 14 atmospheres. The stent balloon was then removed. Coronary angiography was performed. Finally, the stent train was postdilated beginning about 10 mm from the distal edge using a 3.0 x 15 mm NC balloon. Sequential inflations from distal to the proximal edge at 13 zelalem (distally), 16 zelalem (mid stent), and finally 18 zelalem (proximally). Guidewire and balloon were removed. Final angiographic evaluation was performed. The guide catheter was then removed over the guidewire. Radial artery sheath was removed. Hemostasis was obtained using the TR band. Patient was then returned to the recovery area. This ended the case. PCI findings: Tandem 95% stenosis in the mid AV groove circumflex terminating just before the origin of the OM 2/PLB. 0% residual stenosis post PCI. JOANN-3 flow post PCI No evidence of dissection or perforation post PCI Summary: 1. Successful PCI to the circumflex with implantation of 2 overlapped drug- eluting stents 2. Angiographically borderline residual disease in the LAD. 3. Dual antiplatelet therapy with aspirin and Plavix shall continue for 1 to 2 years. 4. Guideline directed medical therapy for secondary prevention of coronary artery disease per primary team. Patient's blood pressure very high during the procedure. Hemodynamics Rest Ao:: 149/78 mmHg Final Ao: 173/88 mmHg LV: Not performed Recommendations Recommendations: Medical Therapy and/or Counseling and PCI without planned CABG Radiation Exposure (mGy) 3211 mGy, fluoroscopy time 16.7 minutes Contrast (mls) 45 cc Anesthesia 2 mg Versed, 50 mcg fentanyl IV. Start time 1004, end time 1041 Procedural Complication(s) None Disposition Hospital Recruiter Holding/Recovery I attest to the content of the Intraoperative Record and any orders documented therein. Any exceptions are noted below. [facility] Card Cath Procedure Codes Moderate Sedation Procedure 1: Sedation/Anesthesia: 11195 Mod Sedation by a different physician ;Init15 Min Child Age 5&Up (Initial 15 minutes, start time 1004) Procedure 2: Sedation/Anesthesia: 26882 Mod Sedation by a different physician;Ea Additional 15 Minutes (Additional 22 minutes, end time 1041) Stenting Procedure 1: Cardiovascular Stent Procedures: 90550 Perc transluminal revascularization of acute sub/total occl, aMI (LCx) PG Care Time/CCT Total # of Minutes Spent Total Time Spent with Patient: Total time spent is greater than 50% in coordination of care (as documented) at patient's floor/unit and/or counseling patient:
[2024-10-13] MEDS: hydrALAZINE HCL 20 MG/ML VIAL ONE (12:32)
--- NOTE | 2024-10-13 18:26 | Electrocardiogram Report ---
Test Reason : Blood Pressure : */* mmHG Vent. Rate : 70 BPM Atrial Rate : 70 BPM P-R Int : 150 ms QRS Dur : 86 ms QT Int : 406 ms P-R-T Axes : 47 -35 17 degrees QTcB Int : 438 ms Normal sinus rhythm Left axis deviation Nonspecific ST abnormality Abnormal ECG When compared with ECG of 13-Oct-2024 04:12, (unconfirmed) QRS axis Shifted left Confirmed by Feroz Epps ([id number]) on 10/13/2024 6:25:59 PM Referred By: REFERRED SELF Confirmed By: Feroz Epps
--- NOTE | 2024-10-13 18:31 | Electrocardiogram Report ---
Test Reason : Blood Pressure : */* mmHG Vent. Rate : 60 BPM Atrial Rate : 60 BPM P-R Int : 142 ms QRS Dur : 94 ms QT Int : 446 ms P-R-T Axes : 47 40 29 degrees QTcB Int : 446 ms Poor data quality, interpretation may be adversely affected Normal sinus rhythm Low voltage QRS Nonspecific ST abnormality Borderline ECG When compared with ECG of 12-Oct-2024 03:01, QRS axis Shifted right Confirmed by Feroz Epps ([id number]) on 10/13/2024 6:30:37 PM Referred By: REFERRED SELF Confirmed By: Feroz Epps
--- NOTE | 2024-10-13 18:44 | Cardiology Progress Note ---
Date of Service October 13, 2024 Assessment & Plan (1) Non-ST elevation VA (NSTEMI): (2) Chest pain: Plan 1. NSTEMI: Patient with elevated biomarkers related to non-ST elevation myocardial infarction. This involved the left circumflex artery. She underwent successful percutaneous intervention at that site today. She will continue dual antiplatelet therapy. She will continue beta-blockade. 2. Hyperlipidemia: Will increase her rosuvastatin to 20 mg daily based on her coronary angiography. 3. Coronary artery disease: Disease involving the left circumflex and LAD. She was advised to discontinue smoking. She will need better control of her blood pressure and diabetes. Continue dual antiplatelet therapy, rosuvastatin and Jardiance. Anticipate discharge tomorrow in the absence of new symptoms. Admission and Anticipated Discharge Date Admission Date: October 13, 2024 Subjective This afternoon the patient later be feeling well. No discomfort at the right radial access site. Some transient chest discomfort subsequent to her catheterization but this appears to have resolved. No breathing difficulty. Review of Systems Review of Systems: Per HPI. Physical Exam Physical Exam: She is alert and oriented x3. Mood affect appear normal. She answered all questions appropriately. HEENT: Sclerae are anicteric. Pupils are equal and reactive to light and accommodation. Extraocular movements were intact. Neuro: Cranial nerves intact Lungs: Lungs are clear to auscultation bilaterally. There are no rales wheezes or rhonchi. She has normal respiratory effort without use of accessory muscles. There is normal pulmonary excursion. Cardiac: The rhythm was regular. S1 and S2 were normal. There are no murmurs on examination. The PMI was not markedly displaced on palpation. Extremities: Patient has bilateral radial pulses that are equal in intensity. There is no evidence cyanosis or clubbing. Good perfusion of the left hand. Radial band still in place. Skin: There are no rashes noted on examination today. ENMT: Mallampati Class: III Respiratory: normal respiratory effort Cardiovascular: Rate/Rhythm: regular rhythm Results & Data Vital Signs (Past 12 Hours) Vital Signs Temp Pulse Pulse Resp BP Pulse Ox O2 Del Method 10/13/24 18:40 62 10/13/24 16:52 36.5 C 69 19 118/76 97 Room Air 10/13/24 16:15 36.5 C 69 19 118/76 97 Room Air 10/13/24 15:52 75 18 125/70 95 Room Air 10/13/24 14:52 71 18 119/76 95 Room Air 10/13/24 13:52 64 18 133/84 95 Room Air 10/13/24 12:52 36.6 C 66 18 127/65 95 Room Air 10/13/24 12:35 BiPAP 10/13/24 12:22 60 17 130/85 95 Room Air 10/13/24 11:52 66 17 159/90 H 95 Room Air 10/13/24 11:37 70 17 162/93 H 95 Room Air 10/13/24 11:22 36.3 C L 66 17 143/80 H 95 Room Air 10/13/24 11:07 36.3 C L 64 17 142/74 H 95 Room Air 10/13/24 11:05 63 18 116/74 94 Room Air 10/13/24 10:50 68 18 149/84 H 96 Room Air 10/13/24 09:00 55 L 10/13/24 08:00 36.9 C 59 L 18 123/73 97 Room Air 10/13/24 07:17 36.7 C 65 19 122/73 96 Room Air Laboratory Results Abnormal Lab Results 10/12/24 10/13/24 10/13/24 18:20 00:39 06:06 WBC 11.22 H RBC 4.69 Hgb 14.4 Hct 44.9 MCV 95.7 MCH 30.7 MCHC 32.1 RDW Std Deviation 47.2 H RDW Coeff of Rui 13.3 Plt Count 270 MPV 10.3 Immature Gran % (Auto) 0.3 Neut % (Auto) 52.1 Lymph % (Auto) 36.4 Brantley % (Auto) 8.8 Eos % (Auto) 2.0 Baso % (Auto) 0.4 Neut # (Auto) 5.84 Lymph # (Auto) 4.08 H Brantley # (Auto) 0.99 H Eos # (Auto) 0.23 Baso # (Auto) 0.05 Immature Gran # (Auto) 0.03 Activ Coag Time Kaolin Sodium 139 Potassium 4.2 Chloride 108 H Carbon Dioxide 26 Anion Gap 5 BUN 20 Creatinine 1.22 H Est Cr Clr Drug Dosing 74.4 eGFR 53.40 BUN/Creatinine Ratio 16.4 Glucose 161 H POC Glucose Calcium 9.1 Phosphorus 3.4 Magnesium 1.8 Troponin I High Sens 750.6 H* D 487.5 H* D 300.8 H* D Albumin 3.3 L 10/13/24 10/13/24 10/13/24 06:09 10:01 10:13 WBC RBC Hgb Hct MCV MCH MCHC RDW Std Deviation RDW Coeff of Rui Plt Count MPV Immature Gran % (Auto) Neut % (Auto) Lymph % (Auto) Brantley % (Auto) Eos % (Auto) Baso % (Auto) Neut # (Auto) Lymph # (Auto) Brantley # (Auto) Eos # (Auto) Baso # (Auto) Immature Gran # (Auto) Activ Coag Time Kaolin 208 H 232 H Sodium Potassium Chloride Carbon Dioxide Anion Gap BUN Creatinine Est Cr Clr Drug Dosing eGFR BUN/Creatinine Ratio Glucose POC Glucose 161 H Calcium Phosphorus Magnesium Troponin I High Sens Albumin 10/13/24 10/13/24 10/13/24 10:40 11:45 16:11 WBC RBC Hgb Hct MCV MCH MCHC RDW Std Deviation RDW Coeff of Rui Plt Count MPV Immature Gran % (Auto) Neut % (Auto) Lymph % (Auto) Brantley % (Auto) Eos % (Auto) Baso % (Auto) Neut # (Auto) Lymph # (Auto) Brantley # (Auto) Eos # (Auto) Baso # (Auto) Immature Gran # (Auto) Activ Coag Time Kaolin 232 H Sodium Potassium Chloride Carbon Dioxide Anion Gap BUN Creatinine Est Cr Clr Drug Dosing eGFR BUN/Creatinine Ratio Glucose POC Glucose 140 H 119 H Calcium Phosphorus Magnesium Troponin I High Sens Albumin Diagnostic Findings Patient underwent coronary angiography today which revealed significant stenosis involving the left circumflex and mid LAD. Left circumflex appeared to be a more acute lesion and she underwent intervention at that site. PG Care Time/CCT Total # of Minutes Spent Total Time Spent with Patient: Total time spent is greater than 50% in coordination of care (as documented) at patient's floor/unit and/or counseling patient: Coding Level of Care Code 36365 SUB INP/OBS CARE 2/35MIN Diagnoses Non-ST elevation VA (NSTEMI) I21.4 Chest pain R07.9
[2024-10-14 03:48] VITALS: RESP 18; TEMP 97.9
[2024-10-14 05:38] LABS: Basophils # (auto) 0.03 K/uL (0.00-0.20); Basophils % (auto) 0.2 %; Eosinophils # (auto) 0.19 K/uL (0.00-0.50); Eosinophils % (auto) 1.6 %; Hematocrit (blood only) 42.9 % (37.0-47.0); Hemoglobin 14.1 g/dl (12.0-16.0); Immature Granulocytes # (auto) 0.05 K/uL (0.01-0.20); Immature Granulocytes % (auto) 0.4 %; Lymphocytes # (auto) 3.37 K/uL (1.20-3.40); Lymphocytes % (auto) 27.8 %; Mean Corpuscular Hemoglobin 30.5 pg (25.0-34.0); Mean Corpuscular Hgb Conc 32.9 g/dL (32.0-36.0); Mean Corpuscular Volume 92.7 fL (80.0-100.0); Mean Platelet Volume 10.2 fL (9.4-12.4); Monocytes # (auto) 1.12 K/uL (0.11-0.59); Monocytes % (auto) 9.2 %; Neutrophils # (auto) 7.36 K/uL (1.40-6.50); Neutrophils % (auto) 60.8 %; Platelet Count 260 K/uL (130-400); RDW Coefficient of Variation 13.2 % (11.5-14.5); RDW Standard Deviation 44.9 fL (36.4-46.3); Red Blood Count 4.63 M/uL (4.20-5.40); White Blood Count 12.12 K/ul (4.8-10.8)
[2024-10-14 05:53] LABS: Albumin Level 3.5 gm/dl (3.4-5.0); BUN Creatinine Ratio 19.8 (10-20); Calcium 8.8 mg/dl (8.6-10.3); Creatinine Clr Calc Pharmacy 85.6 ml/min; Magnesium 1.7 mg/dl (1.7-2.4); Phosphorus 2.6 mg/dl (2.5-4.9); Potassium 3.8 mmol/L (3.5-5.1)
--- NOTE | 2024-10-14 06:25 | Communication Note ---
Date of Service: October 14, 2024 Pt notes recurrence of chest pain- non radiating, denies dyspnea. Vital signs stable. Repeat EKG without acute ischemic changes. Repeat troponin ordered and is pending.
[2024-10-14 08:03] VITALS: O2SAT 97
[2024-10-14] MEDS: ROSUVASTATIN CALCIUM 20 MG TAB PO SCH (08:12)
--- NOTE | 2024-10-14 09:39 | Hospitalist Progress Note ---
Date of Service October 14, 2024 Assessment & Plan (1) Elevated troponin: Plan: newly elevated to 2253 at 7:45am on 10/14/24 after prior peak of 750 on 10/12/24 post-PCI, first trop was ordered due to "fluttering" in chest at 4:50am 10/14/24, was elevated to 1780 unclear if new elevation is due to PCI procedure or re-infarct vs new cardiac pathology - following cardiology recommendations (2) S/P coronary artery stent placement: Plan: Left circumflex performed on 10/13/24 with success - troponin uptrending post-procedure (see #1) - following cardiology recommendations (3) NSTEMI (non-ST elevated myocardial infarction): Plan: on 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 helper of 10/12/24, EKG unremarkable - troponin originally peaking around 750 on 10/12/24 around 6pm, has been downtrended to 300 prior to PCI on 10/13/24 - successful PCI to L circumflex - continue on aspirin 81mg daily, plavix 75mg qAM - increased rosuvastatin to 20mg - continue metoprolol succinate 75mg qHS - following cardiology recommendations (4) Dyslipidemia: Plan: chronic - rosuvastatin 20mg daily - LDL currently in low 100s; goal LDL <70 (5) Diabetes type 2, uncontrolled: Plan: chronic Started insulin glargine 3 weeks ago, with initial dosing of 15 units subcu in the a.m., and is most recently up to 53 units - 40 units subQ glargine, NovoLog SSI Hold Jardiance Hemoglobin A1c 9.9 (6) TONY (obstructive sleep apnea): Plan: continue on BiPAP nightly (7) Hypertension: Plan: Continue losartan 50 mg qAM Admission and Anticipated Discharge Date Admission Date: October 13, 2024 Supervising Physician Co-Signing Physician Notes I also saw the patient independently and confirmed wheeler portions of the history and exam. I discussed the case with the resident. I agree with the impression and plan as noted above. I also discussed the case with the apartment leasing consultant to confirm appropriateness for discharge. EXAM 115/73, 67, 18 Pleasant. Alert and oriented. NAD CV regular Lungs CTA Abd soft and non tender IMPRESSION AND PLAN CAD S/P stent Tobacco Abuse DM Obesity/TONY Dual antiplatelet (Plavix plus aspirin) Increased does of rosuvastatin (20 mg) Resume Jardiance 25 mg Tobacco cessation Follow up with cardiology Additional per resident progress note. Subjective Patient was seen and evaluated at bedside this AM, not appearing in acute distress. Overnight, patient describes having a "fluttering" sensation in her chest lasting a few seconds, denies any pain, SOB, dizziness, nausea, back pain, or abdominal pain at that time. This morning, she reports no more fluttering but has had a few 1-2sec bouts of 5/10 chest pain, denies any of the above symptoms at this time. Has been up to use the bathroom, no issues with urination or stool. Has been tolerating regular diet. Endorses understanding that troponin has again increased to 1800-> 2250, but it is unclear if it is from the cath procedure, following cardiology notes. Denies fever, body aches, chills, headache, neck pain, SOB, chest pain, abdominal pain, pain/swelling in extremities, numbness/tingling. Review of Systems Review of Systems: per HPI Physical Exam Physical Exam: Constitutional: A&Ox3, appears stated age, not in acute distress HEENT: anicteric sclerae, EOM intact Cardiovascular: RRR, +s1/s2, no m/r/g Respiratory: clear to auscultation b/l, equal air entry b/l, no wheezes/rales/rhonchi GI: abdomen soft, +BS, no TTP of abdomen MSK: 5/5 strength in all extremities Neuro: no facial droop, speech intact, no sensory deficits Results & Data Results & Data Vital Signs (Past 12 Hours) Vital Signs Temp Pulse Pulse Resp BP Pulse Ox O2 Del Method 10/14/24 08:03 36.6 C 67 18 129/78 97 Room Air 10/14/24 03:47 36.6 C 59 L 18 113/78 96 Room Air 10/14/24 00:41 64 10/13/24 23:50 BiPAP 10/13/24 23:40 67 22 95 10/13/24 23:15 36.9 C 65 18 103/64 94 BiPAP FiO2 10/14/24 08:03 10/14/24 03:47 10/14/24 00:41 10/13/24 23:50 10/13/24 23:40 21 10/13/24 23:15 Resident Activity Tracking Resident Involvement: Resident Care Provided Care Provided: Adult [facility]
--- NOTE | 2024-10-14 11:24 | Electrocardiogram Report ---
Test Reason : Blood Pressure : */* mmHG Vent. Rate : 63 BPM Atrial Rate : 63 BPM P-R Int : 142 ms QRS Dur : 88 ms QT Int : 432 ms P-R-T Axes : 47 10 9 degrees QTcB Int : 442 ms Poor data quality, interpretation may be adversely affected Normal sinus rhythm Normal ECG When compared with ECG of 13-Oct-2024 10:51, QRS axis Shifted right Confirmed by Feroz Epps ([id number]) on 10/14/2024 11:23:45 AM Referred By: REFERRED SELF Confirmed By: Feroz Epps
[2024-10-14 11:26] VITALS: BP 115/73; PULSE 67
--- NOTE | 2024-10-14 14:55 | Cardiology Progress Note ---
Date of Service October 14, 2024 Assessment & Plan (1) Non-ST elevation MA (NSTEMI): (2) Chest pain: Plan 1. NSTEMI: Patient with elevated biomarkers related to non-ST elevation myocardial infarction. This involved the left circumflex artery. She underwent successful percutaneous intervention at that site yesterday. She will continue dual antiplatelet therapy. She will continue beta-blockade. 2. Hyperlipidemia: Will increase her rosuvastatin to 20 mg daily based on her coronary angiography. 3. Coronary artery disease: Disease involving the left circumflex and LAD. She was advised to discontinue smoking. She will need better control of her blood pressure and diabetes. Continue dual antiplatelet therapy, rosuvastatin and Jardiance. She has been ambulatory without recurrent chest pain. She does have some residual disease in the mid left anterior descending, but no exertional angina. Will monitor her symptoms in the outpatient setting and decide if she requires another intervention. Will continue aggressive secondary prevention with high dose rosuvastatin and aspirin. She will need to continue Plavix as well preferably for 1 year. Continue metoprolol succinate. We discussed additional risk factor modification with tobacco cessation, limiting sodium, regular exercise and better control of her diabetes. I think she stable for discharge. Restrictions would involve limited use of the left hand and wrist for another 6 days. No vigorous use of the left hand or wrist or lifting greater than 5 pounds. Admission and Anticipated Discharge Date Admission Date: October 13, 2024 Subjective This morning patient clinically feeling well. She reported a brief "fluttering" sensation earlier today. This occurred around 6:30 AM by her report. No recurrence. She has been ambulatory around the room without recurrent chest pains or significant shortness of breath. No dizziness or lightheadedness. No pain at the left wrist access site. Review of Systems Review of Systems: Per HPI. Physical Exam Physical Exam: She is alert and oriented x3. Mood affect appear normal. She answered all questions appropriately. HEENT: Sclerae are anicteric. Pupils are equal and reactive to light and accommodation. Extraocular movements were intact. Neuro: Cranial nerves intact Lungs: Lungs are clear to auscultation bilaterally. There are no rales wheezes or rhonchi. She has normal respiratory effort without use of accessory muscles. There is normal pulmonary excursion. Cardiac: The rhythm was regular. S1 and S2 were normal. There are no murmurs on examination. The PMI was not markedly displaced on palpation. Extremities: Patient has bilateral radial pulses that are equal in intensity. There is no evidence cyanosis or clubbing. Good perfusion of the left hand. Palpable left radial pulse. Skin: There are no rashes noted on examination today. ENMT: Mallampati Class: III Respiratory: normal respiratory effort Cardiovascular: Rate/Rhythm: regular rhythm Results & Data Vital Signs (Past 12 Hours) Vital Signs Temp Pulse Pulse Resp BP Pulse Ox O2 Del Method 10/14/24 14:02 36.6 C 67 18 115/73 97 10/14/24 11:25 36.6 C 67 18 115/73 97 Room Air 10/14/24 11:07 58 L 10/14/24 08:03 36.6 C 67 18 129/78 97 Room Air 10/14/24 03:47 36.6 C 59 L 18 113/78 96 Room Air Laboratory Results Abnormal Lab Results 10/13/24 10/13/24 10/14/24 16:11 20:22 04:49 WBC 12.12 H RBC 4.63 Hgb 14.1 Hct 42.9 MCV 92.7 MCH 30.5 MCHC 32.9 RDW Std Deviation 44.9 RDW Coeff of Rui 13.2 Plt Count 260 MPV 10.2 Immature Gran % (Auto) 0.4 Neut % (Auto) 60.8 Lymph % (Auto) 27.8 Sanborn % (Auto) 9.2 Eos % (Auto) 1.6 Baso % (Auto) 0.2 Neut # (Auto) 7.36 H Lymph # (Auto) 3.37 Sanborn # (Auto) 1.12 H Eos # (Auto) 0.19 Baso # (Auto) 0.03 Immature Gran # (Auto) 0.05 Sodium 135 L Potassium 3.8 Chloride 104 Carbon Dioxide 25 Anion Gap 6 BUN 21 Creatinine 1.06 Est Cr Clr Drug Dosing 85.6 eGFR 63.21 BUN/Creatinine Ratio 19.8 Glucose 151 H POC Glucose 119 H 170 H Calcium 8.8 Phosphorus 2.6 Magnesium 1.7 Troponin I High Sens 1780.5 H* D Albumin 3.5 10/14/24 10/14/24 10/14/24 07:23 07:44 10:50 WBC RBC Hgb Hct MCV MCH MCHC RDW Std Deviation RDW Coeff of Rui Plt Count MPV Immature Gran % (Auto) Neut % (Auto) Lymph % (Auto) Sanborn % (Auto) Eos % (Auto) Baso % (Auto) Neut # (Auto) Lymph # (Auto) Sanborn # (Auto) Eos # (Auto) Baso # (Auto) Immature Gran # (Auto) Sodium Potassium Chloride Carbon Dioxide Anion Gap BUN Creatinine Est Cr Clr Drug Dosing eGFR BUN/Creatinine Ratio Glucose POC Glucose 150 H 194 H Calcium Phosphorus Magnesium Troponin I High Sens 2253.1 H* D Albumin 10/14/24 12:52 WBC RBC Hgb Hct MCV MCH MCHC RDW Std Deviation RDW Coeff of Rui Plt Count MPV Immature Gran % (Auto) Neut % (Auto) Lymph % (Auto) Sanborn % (Auto) Eos % (Auto) Baso % (Auto) Neut # (Auto) Lymph # (Auto) Sanborn # (Auto) Eos # (Auto) Baso # (Auto) Immature Gran # (Auto) Sodium Potassium Chloride Carbon Dioxide Anion Gap BUN Creatinine Est Cr Clr Drug Dosing eGFR BUN/Creatinine Ratio Glucose POC Glucose Calcium Phosphorus Magnesium Troponin I High Sens 1891.7 H* Albumin PG Care Time/CCT Total # of Minutes Spent Total Time Spent with Patient: Total time spent is greater than 50% in coordination of care (as documented) at patient's floor/unit and/or counseling patient: Coding Level of Care Code 75562 SUB INP/OBS CARE 2/35MIN Diagnoses Non-ST elevation MA (NSTEMI) I21.4 Chest pain R07.9
--- NOTE | 2024-10-14 17:39 | Discharge Summary ---
Date of Service October 14, 2024 Admission HPI Per Admitting Provider The patient is a 54-year-old female with a past medical history including B12 deficiency, GERD, metabolic syndrome, fatty liver, diabetes mellitus, diabetic peripheral neuropathy, dyslipidemia, TONY on BiPAP, morbid obesity, and hypertension. The patient reports for the past 3 evenings she has been awoken from sleep by substernal chest discomfort. First time this happened, however, was during the day when she was helping her move a heavy object. The past 3 think she has had the symptoms, but this evening the pain was much more intense lasted longer, it radiated to her left side of her neck. As noted she took 's 3 and 25 mg aspirin pills, and then came into the ED for assessment. Admission Exam Per Admitting Provider The patient is awake, alert and oriented 3, well developed and well nourished, normocephalic and atraumatic, lying in bed and in no acute distress. HEENT--PERRL, EOMI, mucous membranes and oropharynx normal. Neck--supple. No JVD. No bruits. Thyroid normal, trachea midline, no adenopathy. Heart--normal S1 and S2. No murmurs, rubs or gallops. Lungs--decreased breath sounds throughout. No respiratory distress, no accessory muscle use. Abdomen--normal bowel sounds and soft. Nontender. Nondistended. Morbidly obese Extremities--No edema. Dermatologic--normal skin turgor, normal color, no abnormal lymph nodes, no rash. Neurologic--cranial nerves II through XII grossly intact. Rheumatologic--normal range of motion. Psychiatric--normal affect. Principal Diagnosis NSTEMI Discharge Exam Constitutional: A&Ox3, appears stated age, not in acute distress HEENT: anicteric sclerae, EOM intact Cardiovascular: RRR, +s1/s2, no m/r/g Respiratory: clear to auscultation b/l, equal air entry b/l, no wheezes/rales/rhonchi GI: abdomen soft, +BS, no TTP of abdomen MSK: 5/5 strength in all extremities Neuro: no facial droop, speech intact, no sensory deficits Discharge Data Allergies Allergy/AdvReac Type Severity Reaction Status Date / Time latex Allergy Intermediate Rash Verified 10/13/24 08:42 codeine AdvReac Intermediate hallucinati Verified 10/13/24 08:42 ons Consultations 10/12/24 04:00 ED Decision to Admit Stat 10/12/24 04:54 Consult Cardiology Routine Procedures Performed Operation Date: 10/13/24 09:00 Actual Procedures p Cineradiography w/Routine Exam - Feroz Epps MD s Cath, Left with Cors and Vent - Feroz Epps MD s Drug Eluting Stent SGl Vessel - Epifanio Watson MD, PhD Ordered Studies 10/13/24 06:56 CL Cath Imgs for PACS use only Routine Diabetes Follow up Diabetes Follow-up Needed for HgbA1c >9% Hospital Course (1) Elevated troponin: newly elevated to 2253 at 7:45am on 10/14/24 after prior peak of 750 on 10/12/24 post-PCI, first trop was ordered due to "fluttering" in chest at 4:50am 10/14/24, was elevated to 1780 unclear if new elevation is due to PCI procedure or re-infarct vs new cardiac pathology - following cardiology recommendations, as pt hasn't had recurring chest pain she may be safely discharged on medications: rosuvastatin 20mg, aspirin 81mg, Plavix 75mg qAM (2) S/P coronary artery stent placement: Left circumflex performed on 10/13/24 with success - troponin uptrending post-procedure (see #1) - following cardiology recommendations, they are comfortable with pt going home as chest pain has not recurred and pt has been ambulatory (3) NSTEMI (non-ST elevated myocardial infarction): on floor director of 10/12/24, EKG unremarkable - troponin originally peaking around 750 on 10/12/24 around 6pm, has been downtrended to 300 prior to PCI on 10/13/24 - successful PCI to L circumflex - continue on aspirin 81mg daily, plavix 75mg qAM - increased rosuvastatin to 20mg - continue metoprolol succinate 75mg qHS - following cardiology recommendations - d/c on rosuvastatin 20mg and DAPT as noted above (4) Dyslipidemia: chronic - rosuvastatin 20mg daily - LDL currently in low 100s; goal LDL <70 (5) Diabetes type 2, uncontrolled: chronic Started insulin glargine 3 weeks ago, with initial dosing of 15 units subcu in the a.m., and is most recently up to 53 units - 40 units subQ glargine, NovoLog SSI Hold Jardiance Hemoglobin A1c 9.9 (6) TONY (obstructive sleep apnea): continue on BiPAP nightly (7) Hypertension: Continue losartan 50 mg qAM Total Time Total Time Spent Total Time Spent (In Minutes): 45 Discharge Plan Discharge Items Patient Disposition: Home - Self-Care Reason For Visit: NSTEMI Discharge Diagnosis: NSTEMI, S/P coronary artery stent placement Activity: Per Instructions section Non-emergency contact: Primary Care Provider and [employer] Operator Call non-emergency contact if: you have any medication questions and your symptoms worsen Follow-up/Referrals: Purvi Bear DO [Primary Care Provider] - 10/26/24 9:20 am (Hospital follow up on October 26 at 9:20 am) Feroz Epps MD [Physician] - (Patient had PCI with stent placement on 10/13, will need follow up/establish with cardiology as outpatient) Diet: Carb Consistent or DM2 Addtl Attending Provider Instructions: You were admitted to the hospital for chest pain. You were treated with a cardiac catheterization and coronary artery stent placement. During your admission, you had several medications added to your medication list in order to optimize your heart health and function. It is very important that we keep your diabetes under good control and keep your blood pressure adequately controlled. It is also very important for your cardiovascular health to eliminate all smoking. I recommend you discuss this further with your PCP as there are options for medications (pills, patches, gum, etc) that can help reduce cravings and assist you with stopping smoking. A discharge summary will be sent to your primary care physician to ensure continuity of care. Follow-up appointments: Make a follow-up appointment with your PCP within the next week. It is very important that you follow up with them shortly after discharge from the hospital. We have requested a follow-up appointment with the wedding planner group ([facility]). It will be important that you follow up with the wedding planner due to your recent cardiac catheterization and stent placement. Keep all your follow-up appointments as already scheduled. If you cannot make an appointment, notify your provider. Medications: Your medication list has been reviewed and reconciled upon discharge to ensure accuracy and continuity of care. An updated list of all your medications is included with your hospital discharge paperwork. Per your request, we have sent the Plavix and the Aspirin to [facility] on [facility] and the increased dose of Rosuvastatin to the [facility] in [place]. We sent a new medication called Plavix to your pharmacy ([facility]). Take Plavix 75mg (1 tablet) once daily. We sent a new medication called Aspirin to your pharmacy ([facility]). Take Aspirin 81mg (1 tablet) once daily. We sent a new medication called Rosuvastatin to your pharmacy ([facility]). Take Rosuvastatin 20mg (1 tablet) once daily. CALL 911 OR GO TO THE EMERGENCY DEPARTMENT if you experience any of the following: Sudden, severe abdominal pain or nausea/vomiting Severe chest pain, or chest pain that radiates (moves) to your jaw or arm Sudden, severe shortness of breath or difficulty breathing Thank you for allowing us to participate in your care. Pending Studies at Discharge: No Stand-Alone Forms: [facility], Smoking Cessation Medications and DC Order Prescriptions: New clopidogrel 75 mg Tablet 75 mg PO QAM 30 Days Qty: 30 0RF rosuvastatin 20 mg Tablet 20 mg PO DAILY 30 Days Qty: 30 0RF aspirin 81 mg Tablet,Delayed Release (Dr/Ec) 81 mg PO QAM 30 Days Qty: 30 0RF [facility] See [facility] Instructions .ROUTE .MEDSUPPLY Qty: 300 3RF Rx Instructions: Test blood sugar three times daily (DME) blood sugar diagnostic Strip See Rx Instructions .ROUTE .MEDSUPPLY Qty: 300 3RF Rx Instructions: Test blood sugar three times daily - One Touch Ultra fluticasone propionate [Flonase Allergy Relief] 50 mcg/actuation spray,suspension 2 spray intranasal DAILY Qty: 16 2RF Rx Instructions: administer into each nostril Jardiance 25 mg tablet 25 mg PO DAILY Qty: 30 2RF levothyroxine 75 mcg tablet 75 mcg PO QAM Qty: 90 1RF losartan 50 mg tablet 50 mg PO QAM Qty: 90 2RF pantoprazole [Protonix] 40 mg tablet,delayed release (DR/EC) 40 mg PO DAILY Qty: 90 2RF metoprolol succinate 25 mg tablet extended release 24 hr 75 mg PO HS Qty: 270 1RF (DME) BI-PAP Misc See Rx Instructions .Route Rx Instructions: As directed (DME) pen needle, diabetic 31 gauge x 5/16" needle See Rx Instructions .Route Qty: 50 3RF Rx Instructions: Inject once daily (DME) FreeMICMALIyle Satya 3 Plus Sensor Device See Rx Instructions .Route Qty: 2 6RF Rx Instructions: Change sensor every 15 days Artificial Tears (cmc) 1 % drops 1 drp ophthalmic (eye) BID Qty: 15 0RF insulin glargine [Lantus Solostar U-100 Insulin] 100 unit/mL (3 mL) insulin pen 15 unit subcut QAM MDD 50 Qty: 15 3RF Discontinued rosuvastatin 5 mg tablet 5 mg PO DAILY Qty: 90 1RF Discharge Orders: Discharge Order (Routine); Ordered 10/14/24 Ordered By: Jud Benavides/Other Patient Handouts: Diabetes and Heart Disease, Managing Type 2 Diabetes, Healthy Meals for Diabetes, Diabetes Food Shop Meals Prep Admission Data Admit Date/Time: 10/13/24 14:23 Attending Provider: Dieter Urbano Admit Provider: Layton Torres V. Primary Care Provider: Purvi Bear Other Providers: Dominguez Harvey; Feroz Epps Other Interventions: Discharge Summary Assessment (RN) Last Done: 10/14/24 14:02 Supervising Physician Co-Signing Physician Notes I also saw the patient independently and confirmed wheeler portions of the history and exam. I discussed the case with the resident. I agree with the impression and plan as noted above. I also discussed the case with the community resource consultant to confirm appropriateness for discharge. EXAM 115/73, 67, 18 Pleasant. Alert and oriented. NAD CV regular Lungs CTA Abd soft and non tender IMPRESSION AND PLAN CAD S/P stent Tobacco Abuse DM Obesity/TONY Dual antiplatelet (Plavix plus aspirin) Increased does of rosuvastatin (20 mg) Resume Jardiance 25 mg Tobacco cessation Follow up with cardiology Additional per resident progress note. Resident Activity Tracking Resident Involvement: Resident Care Provided Care Provided: Adult Hospital Medicine
== END 2024-10-14 14:55 | disposition home or self-care (01) | DRG 322 ==
LOC: EDINP 02:52 → ED 02:52 → SUATTDRO 04:42 → 2E 04:54

== ENCOUNTER 2024-11-02 11:09 | Inpatient (IN) ==
--- NOTE | 2024-11-02 11:59 | Emergency Department Note ---
Impression & Plan Precordial chest pain, History of DC (myocardial infarction), CAD (coronary atherosclerotic disease), Leukocytosis ED Provider Note NAME: ISHA CHAMBERLAIN AGE: 54 SEX: F : 1970 ARRIVES VIA: Walk-In INFORMANT: [Patient] ED PROVIDER(S): [Gabo Mccall MD] CHIEF COMPLAINT: Chest pain HISTORY OF PRESENT ILLNESS: The patient is a 54-year-old female who was discharged from our hospital just over 2 weeks ago for a non-STEMI and during her hospitalization, received a coronary stent. She is on aspirin and Plavix. The patient states that last night, she walked through her house with a laundry basket and towards the end of the distance, developed a squeezing sensation in her mid to left chest. No radiation. She was not short of breath per se but felt fatigued. The symptoms lasted for a few seconds and then resolved. She then had another episode with exertion, again very short-lived. This morning, she had an episode when she was walking and then also when she walked into the cardiology office. Both episodes lasting seconds at a time. She is currently asymptomatic. She did not take any nitroglycerin. At the cardiology office, the patient was referred to our ER. PMHx/PSHx/Social Hx: See Below PHYSICAL EXAM: GENERAL: Patient is in no acute distress. HEENT: No acute trauma, normocephalic atraumatic, mucous membranes moist, no nasal congestion. NECK: No stridor, no adenopathy, no meningismus, trachea is midline. LUNGS: Clear to auscultation bilaterally, no wheeze, no rhonchi, breath sounds equal. HEART: Without murmurs gallops or rubs, regular rate and rhythm. ABDOMEN: Soft, nontender, no peritonitis. EXTREMITIES: No cyanosis, full range of motion of all the joints without pain or difficulty. NEUROLOGIC: Oriented x 3, no acute motor or sensory deficits, no focal weakness. SKIN: No jaundice, no diaphoresis. DIFFERENTIAL DIAGNOSIS: DC, palpitations, electrolyte imbalance, anemia, angina, GERD, among others. EMERGENCY DEPARTMENT PROCEDURES: MEDICAL DECISION MAKING: There is a mild leukocytosis, this could be consistent with infection or just the stress of her presentation. There was a normal hemoglobin and platelet count. No coagulopathy. No renal failure or significant electrolyte abnormality. No concerning liver enzyme elevation. No evidence for pancreatitis. ECG showed a normal sinus rhythm, no ST elevation. Repeat ECG showed the same findings. Cardiac enzyme testing x 1 was not consistent with acute cardiac injury. Chest x-ray did not show pneumonia or CHF. There was no pneumothorax. Patient presents with some intermittent exertional chest discomfort since having recent coronary stent placement. I did speak with cardiology, hospitalization, cardiac monitoring was recommended. I talked to the patient about her findings and the cardiology concerns. I spoke with the social work case manager. The on-call hospitalist was consulted. At this point, the cause for her pain is unclear. Prior/Outside records/notes reviewed: Previous discharge summary note describing her presentation, hospital care and plan at discharge. ECG per my interpretation: Indication was chest pain. The ECG shows a normal sinus rhythm with a rate of 70. There is no ST elevation, no PVCs. The QTc is 432. Repeat ECG per my interpretation: Indication was chest pain. The ECG shows a normal sinus rhythm with a rate of 72. There is some nonspecific ST change. There is no acute ST elevation, no PVCs. The QTc is 418. Compared to previous ECGs, I see no significant change. Continuous Cardiac Monitoring per my interpretation: An order was placed for continuous cardiac monitoring. The monitor shows a rate of 75 with normal sinus rhythm. Imaging/x-ray results per my interpretation: Chest x-ray does not show CHF or pneumonia. Chronic Medical/Social conditions affecting care: Recent DC with coronary stenting. Care/Management discussed with: Cardiology-Dr. Epps. Case management and the on-call hospitalist. Level of care consideration(s): After review of the information above and other included data: --I believe the patient requires escalation of care to admission DISPOSITION: Admission Past Med/Surg History Problem List (Updated 11/02/24 @ 16:32 by Gabo Mccall MD) Leukocytosis (Acute) CAD (coronary atherosclerotic disease) (Acute) History of DC (myocardial infarction) (Acute) Precordial chest pain (Acute) Tooth ache Coronary artery disease History of non-ST elevation myocardial infarction (NSTEMI) (09/2024) S/P coronary artery stent placement (09/2024) Overlapping LUNA x 2 L circumflex Unstable angina B12 deficiency ETD (eustachian tube dysfunction) Conductive hearing loss of left ear with unrestricted hearing of right ear Acid reflux Pressure sensation in both ears Morbid obesity Metabolic syndrome Vitamin D deficiency Tobacco dependence due to cigarettes Fatty infiltration of liver Insomnia Adult situational stress disorder Diabetic peripheral neuropathy associated with type 2 diabetes mellitus Hidradenitis suppurativa Diabetes type 2, uncontrolled Dyslipidemia Osteoarthritis of knees, bilateral Primary hypothyroidism (Chronic) Diverticulitis (Acute) Hypertension (Chronic) Medical History Non-ST elevation DC (NSTEMI) (09/2024) Morbid obesity with BMI of 40.0-44.9, adult History of anesthesia reaction BP dropped with endometrial ablation History of kidney stones History of COVID-19 diagnosed 2019--mild symptoms, no symptoms now Surgical History (Updated 10/27/24 @ 09:31 by Purvi Bear DO) S/P coronary artery stent placement (09/2024) Overlapping LUNA x 2 L circumflex Hx of oral surgery (11/28/22) p Incision and Drainage left nasolabial(upper) and lower subperiosteal abscess Removal of teeth 6,7,8,9,10,11,12 and lower teeth 21,22,23,24,25,26,27,28 History of surgical removal of pilonidal cyst History of endometrial ablation History of surgery removal of sweat/hair glands underneath bilateral arms d/t hidradenitis suppurativa History of wisdom tooth extraction H/O dilation and curettage H/O removal of cyst under R eye Family History Aunt Breast cancer Grandfather (Maternal) Myocardial infarction Grandmother (Maternal) History of anesthesia reaction difficulty waking Daughter History of anesthesia reaction under local anesthesia for repair of nerve in her finger--"went unresponsive and had no neurological function for 20 min" ???, slowly came out it Denies family history of Ovarian cancer Prostate cancer Colorectal cancer Social History Smoking Status: Current every day smoker Tobacco Type: Cigarettes Age Started Using Tobacco: 15; packs per day: 1; Cigarettes Per Day: 5; Second Hand Exposure: Yes; Do You Dip or Chew Tobacco: No; Hx Alcohol Use: No Hx Substance Use: No Preferred Language: Irish Communication Ability: Effective Visual Impairment: No Limitations Hearing Ability: Hard of Hearing Corporate Associate Attorney Required: No Beliefs That Will Affect Care: None marital status: Current Living Situation: Spouse Current Living Situation Comment: lives with , son, daughter, daughter's boyfriend current occupational status: unemployed Feels Safe at Home: Yes Childhood Exposure to Second-Hand Smoke: Yes caffeine: Yes during the past year weight has: remained stable Dental Care, Regularly: No Physical Activity Frequency: Daily Seatbelt Use: always Sunscreen Use: No Assistive Devices: Glasses Allergies Allergies Allergy/AdvReac Type Severity Reaction Status Date / Time latex Allergy Intermediate Rash Verified 11/02/24 10:29 codeine AdvReac Intermediate hallucinati Verified 11/02/24 10:29 ons Home Meds Home Medications Medication Instructions Recorded Confirmed BI-PAP 03/12/22 11/02/24 insulin glargine 100 unit/mL (3 46 unit subcut QAM 10/26/24 11/02/24 mL) subcutaneous pen (Lantus Solostar U-100 Insulin) empagliflozin 25 mg tablet 25 mg PO QAM 11/02/24 11/02/24 (Jardiance) Previous Rx's Medication Instructions Recorded blood sugar diagnostic #300 ea 07/02/23 lancets #300 ea 07/02/23 fluticasone propionate 50 2 spray intranasal DAILY #16 grams 07/26/23 mcg/actuation nasal spray,suspension (Flonase Allergy Relief) carboxymethylcellulose sodium 1 % 1 drp ophthalmic (eye) BID #15 mL 07/13/24 eye drops (Artificial Tears (carboxymethylcellulose)) pen needle, diabetic 31 gauge x #50 ea 07/27/2404/02" blood-glucose sensor (FreeStyle #2 ea 09/15/24 Satya 3 Plus Sensor device) losartan 50 mg tablet 50 mg PO QAM #90 tabs 09/23/24 metoprolol succinate 25 mg 75 mg (3 x 25 mg) PO HS #270 tabs 09/23/24 tablet,extended release 24 hr pantoprazole 40 mg tablet,delayed 40 mg PO DAILY #90 tabs 09/23/24 release (Protonix) aspirin 81 mg tablet,delayed 81 mg PO QAM 30 days #30 tabs 10/14/24 release clopidogrel 75 mg tablet 75 mg PO QAM 30 days #30 tabs 10/14/24 rosuvastatin 20 mg tablet 20 mg PO DAILY 30 days #30 tabs 10/14/24 levothyroxine 75 mcg tablet 75 mcg PO QAM #90 tabs 10/26/24 nitroglycerin 0.4 mg sublingual See Rx Instructions .Route 10/26/24 tablet .COMPLEX #20 tabs Results & Data (ED) Vital Signs Vital Signs - 24 hr 11/02/24 11:17 11/02/24 11:38 11/02/24 11:58 Temperature 36.8 C Temperature Source Temporal Artery Scan Pulse Rate 75 75 Pulse Rate [Apical] Pulse Rate from SpO2 Sensor Pulse Rhythm Pulse Rhythm [Apical] Pulse Strength [Apical] Respiratory Rate 20 Respiratory Effort / Characteristics Respiratory Depth Respiratory Pattern Blood Pressure 139/87 Blood Pressure [Left Arm] Blood Pressure Mean 104 Blood Pressure Mean [Left Arm] Blood Pressure Position [Left Arm] Pulse Oximetry 97 96 Oxygen Delivery Method Room Air Room Air Sepsis Recent Fever Within 48 Hours No Sepsis New/Unexplained Change in Mental Status N/A Sepsis Action Taken by Nursing No Action Required 11/02/24 11:58 11/02/24 11:58 11/02/24 12:36 Temperature Temperature Source Pulse Rate 68 69 Pulse Rate [Apical] 68 Pulse Rate from SpO2 Sensor 69 Pulse Rhythm Regular Pulse Rhythm [Apical] Regular Pulse Strength [Apical] Normal Respiratory Rate 20 20 14 Respiratory Effort / Characteristics Non-Labored Spontaneous Respiratory Depth Normal Respiratory Pattern Regular Blood Pressure 140/70 Blood Pressure [Left Arm] 158/106 H Blood Pressure Mean 93 Blood Pressure Mean [Left Arm] 123 Blood Pressure Position [Left Arm] Semi-fowlers Pulse Oximetry 96 98 94 Oxygen Delivery Method Room Air Room Air Room Air Sepsis Recent Fever Within 48 Hours Sepsis New/Unexplained Change in Mental Status Sepsis Action Taken by Nursing 11/02/24 13:00 11/02/24 13:21 11/02/24 13:21 Temperature Temperature Source Pulse Rate 64 67 Pulse Rate [Apical] 65 Pulse Rate from SpO2 Sensor 64 66 Pulse Rhythm Pulse Rhythm [Apical] Pulse Strength [Apical] Normal Respiratory Rate 20 19 20 Respiratory Effort / Characteristics Non-Labored Spontaneous Respiratory Depth Normal Respiratory Pattern Regular Blood Pressure 123/78 133/94 Blood Pressure [Left Arm] 133/94 Blood Pressure Mean 93 107 Blood Pressure Mean [Left Arm] 107 Blood Pressure Position [Left Arm] Pulse Oximetry 95 96 96 Oxygen Delivery Method Room Air Room Air Sepsis Recent Fever Within 48 Hours Sepsis New/Unexplained Change in Mental Status Sepsis Action Taken by Jail Medications Current Medication List: was personally reviewed by me Laboratory Data Attestation: I reviewed the patient's lab results. 11/02/24 11:30 11/02/24 11:30 Lab Results 11/02/24 Range/Units 11:30 WBC 14.10 H (4.8-10.8) K/ul RBC 5.22 (4.20-5.40) M/uL Hgb 15.9 (12.0-16.0) g/dl Hct 48.6 H (37.0-47.0) % MCV 93.1 (80.0-100.0) fL MCH 30.5 (25.0-34.0) pg MCHC 32.7 (32.0-36.0) g/dL RDW Std Deviation 45.3 (36.4-46.3) fL RDW Coeff of Rui 13.2 (11.5-14.5) % Plt Count 300 (130-400) K/uL MPV 10.4 (9.4-12.4) fL Immature Gran % (Auto) 0.4 % Neut % (Auto) 72.3 % Lymph % (Auto) 19.1 % Butts % (Auto) 6.5 % Eos % (Auto) 1.3 % Baso % (Auto) 0.4 % Neut # (Auto) 10.19 H (1.40-6.50) K/uL Lymph # (Auto) 2.70 (1.20-3.40) K/uL Butts # (Auto) 0.91 H (0.11-0.59) K/uL Eos # (Auto) 0.18 (0.00-0.50) K/uL Baso # (Auto) 0.06 (0.00-0.20) K/uL Immature Gran # (Auto) 0.06 (0.01-0.20) K/uL PT 10.9 (9.0-12.0) Seconds INR 1.0 (0.9-1.1) APTT 25 (21-31) Seconds PTT Ratio 0.9 Sodium 137 (136-145) mmol/L Potassium 4.0 (3.5-5.1) mmol/L Chloride 103 (98-107) mmol/L Carbon Dioxide 25 (21-32) mmol/L Anion Gap 9 (3-11) BUN 17 (6-23) mg/dl Creatinine 1.14 (0.6-1.2) mg/dl Est Cr Clr Drug Dosing 78.8 ml/min eGFR 57.92 BUN/Creatinine Ratio 14.9 (10-20) Glucose 166 H (70-99(Fasting)) mg/dl Calcium 10.1 (8.6-10.3) mg/dl Magnesium 1.8 (1.7-2.4) mg/dl Total Bilirubin 0.5 (0.2-1.0) mg/dl AST 16 (13-39) U/L ALT 21 (7-52) U/L Alkaline Phosphatase 83 (34-104) U/L Troponin I High Sens 6.4 (0-14) pg/ml Total Protein 9.2 H (6.0-8.3) gm/dl Albumin 4.5 (3.4-5.0) gm/dl Globulin 4.7 H (2.5-4.0) gm/dl Albumin/Globulin Ratio 1.0 (0.9-2) Lipase 45 (11-82) U/L Imaging Data Radiologist's Impression: Chest X-Ray 11/02/24 11:48 XR chest 1V portable HISTORY: 54 years-old Female Chest pain, nonspecific COMPARISON: 10/12/2024 TECHNIQUE: AP view the chest FINDINGS: Cardiomediastinal and hilar silhouettes are within normal limits. No pneumothorax, pleural effusion or airspace consolidation. The bones appear grossly intact. IMPRESSION: No acute process. ACT 112: Negative or not required by law. The above report was generated using voice recognition software. It may contain grammatical, syntax or spelling errors. Electronically signed by: Johnny Forrest M.D. 11/02/2024 12:04 PM Discharge Plan Visit Data Chief Complaint: Chest Pain Stated Complaint: STINT PUT IN, CHEST PAIN, SWEATS ED Provider: Gabo Mccall Discharge Problem: Precordial chest pain, History of DC (myocardial infarction), CAD (coronary atherosclerotic disease), Leukocytosis Patient Disposition: Admitted As Inpatient Condition: Fair Discharge Instructions Interventions: ED Discharge Assessment Last Done: 11/02/24 14:56 Discharge Problem: CAD (coronary atherosclerotic disease) Qualifiers: Coronary Disease-Associated Artery/Lesion type: unspecified vessel or lesion type Teller vs. transplanted heart: [place] heart Associated angina: unspecified whether angina present Qualified Code(s): I25.10 - Atherosclerotic heart disease of [place] coronary artery without angina pectoris Leukocytosis Qualifiers: Leukocytosis type: unspecified Qualified Code(s): D72.829 - Elevated white blood cell count, unspecified
[2024-11-02 12:04] LABS: Basophils # (auto) 0.06 K/uL (0.00-0.20); Basophils % (auto) 0.4 %; Eosinophils # (auto) 0.18 K/uL (0.00-0.50); Eosinophils % (auto) 1.3 %; Hematocrit (blood only) 48.6 % (37.0-47.0); Hemoglobin 15.9 g/dl (12.0-16.0); Immature Granulocytes # (auto) 0.06 K/uL (0.01-0.20); Immature Granulocytes % (auto) 0.4 %; Lymphocytes % (auto) 19.1 %; Mean Corpuscular Hemoglobin 30.5 pg (25.0-34.0); Mean Corpuscular Hgb Conc 32.7 g/dL (32.0-36.0); Mean Corpuscular Volume 93.1 fL (80.0-100.0); Mean Platelet Volume 10.4 fL (9.4-12.4); Monocytes # (auto) 0.91 K/uL (0.11-0.59); Monocytes % (auto) 6.5 %; Neutrophils # (auto) 10.19 K/uL (1.40-6.50); Neutrophils % (auto) 72.3 %; Platelet Count 300 K/uL (130-400); RDW Coefficient of Variation 13.2 % (11.5-14.5); RDW Standard Deviation 45.3 fL (36.4-46.3); Red Blood Count 5.22 M/uL (4.20-5.40)
--- NOTE | 2024-11-02 12:06 | XRay Report ---
XR chest 1V portable HISTORY: 54 years-old Female Chest pain, nonspecific COMPARISON: 10/12/2024 TECHNIQUE: AP view the chest FINDINGS: Cardiomediastinal and hilar silhouettes are within normal limits. No pneumothorax, pleural effusion o r airspace consolidation. The bones appear grossly intact. IMPRESSION: No acute process. ACT 112: Negative or not required by law. The above report was generated using voice recognition software. It may contain grammatical, syntax o r spelling errors. Electronically signed by: Johnny Forrest M.D. 11/02/2024 12:04 PM
[2024-11-02 12:28] LABS: Albumin Level 4.5 gm/dl (3.4-5.0); BUN Creatinine Ratio 14.9 (10-20); Bilirubin,Total 0.5 mg/dl (0.2-1.0); Calcium 10.1 mg/dl (8.6-10.3); Creatinine Clr Calc Pharmacy 78.8 ml/min; Globulin 4.7 gm/dl (2.5-4.0); Magnesium 1.8 mg/dl (1.7-2.4); Total Protein 9.2 gm/dl (6.0-8.3)
[2024-11-02 12:32] LABS: Partial Thromboplastin Ratio 0.9; Partial Thromboplastin Time 25 Seconds (21-31); Prothrombin Time 10.9 Seconds (9.0-12.0)
[2024-11-02 12:33] LABS: Troponin I High Sensitivity 6.4 pg/ml (0-14)
--- NOTE | 2024-11-02 14:22 | History & Physical Report ---
Date of Service November 02, 2024 Assessment & Plan (1) Chest pain: Plan: Patient presents from the cardiologists office with complaints of chest pain at rest and exersion Recently had stent x2 on 10/11 Here in the ED, trop and EKG wnl will continue Plavix and ASA Nitro Monitor on Tele Cardiology consult (2) Non-ST elevation PA (NSTEMI): Plan: s/p LUNA x2 on 10/11 continue home meds (3) Morbid obesity with BMI of 40.0-44.9, adult: Plan: Patient was adviced on lifestyle changes (4) Tooth ache: Plan: complains of tooth ache, with sinus ache Has had about 17 teeth pulled will order CT scan empirically start Augmentin Admission and Anticipated Discharge Date Admission Date: Admit to tele full code History of Present Illness Chief Complaint: chest pain, tooth ache Primary Care Provider: Purvi Bear DO This is a 54 Yo F with a hx of CAD, s/p stent, Morbid obesity, Type 2 DM, HTN, who was sent to the hopsital by her heel slicker. Patient went to see her heel slicker today for routine follow up, but also complained of central chest pain, worse on exersion. Of note she had a LUNA x2 on 10/11 and has been compliant with her meds. When I saw her in the ED, she said her pain is central, present at rest and even on exertion. She also complained of sinus ache and tooth ache. She has had about 17 of her teeth pulled at some point. Vital sign are stable in the ED. Trop and EKG wnl. patient will be admitted to the hospital and monitored on tele Allergies Allergy/AdvReac Type Severity Reaction Status Date / Time latex Allergy Intermediate Rash Verified 11/02/24 10:29 codeine AdvReac Intermediate hallucinati Verified 11/02/24 10:29 ons Home Medications Medication Instructions Recorded Confirmed Type BI-PAP 03/12/22 11/02/24 History blood sugar diagnostic #300 ea 07/02/23 11/02/24 Rx lancets #300 ea 07/02/23 11/02/24 Rx fluticasone propionate 50 2 spray intranasal DAILY #16 grams 07/26/23 11/02/24 Rx mcg/actuation nasal spray,suspension (Flonase Allergy Relief) carboxymethylcellulose sodium 1 % 1 drp ophthalmic (eye) BID #15 mL 07/13/24 11/02/24 Rx eye drops (Artificial Tears (carboxymethylcellulose)) pen needle, diabetic 31 gauge x #50 ea 07/27/24 11/02/24 Rx 04/02" blood-glucose sensor (FreeStyle #2 ea 09/15/24 11/02/24 Rx Satya 3 Plus Sensor device) losartan 50 mg tablet 50 mg PO QAM #90 tabs 09/23/24 11/02/24 Rx metoprolol succinate 25 mg 75 mg (3 x 25 mg) PO HS #270 tabs 09/23/24 11/02/24 Rx tablet,extended release 24 hr pantoprazole 40 mg tablet,delayed 40 mg PO DAILY #90 tabs 09/23/24 11/02/24 Rx release (Protonix) aspirin 81 mg tablet,delayed 81 mg PO QAM 30 days #30 tabs 10/14/24 11/02/24 Rx release clopidogrel 75 mg tablet 75 mg PO QAM 30 days #30 tabs 10/14/24 11/02/24 Rx rosuvastatin 20 mg tablet 20 mg PO DAILY 30 days #30 tabs 10/14/24 11/02/24 Rx insulin glargine 100 unit/mL (3 46 unit subcut QAM 10/26/24 11/02/24 History mL) subcutaneous pen (Lantus Solostar U-100 Insulin) levothyroxine 75 mcg tablet 75 mcg PO QAM #90 tabs 10/26/24 11/02/24 Rx nitroglycerin 0.4 mg sublingual See Rx Instructions .Route 10/26/24 11/02/24 Rx tablet .COMPLEX #20 tabs empagliflozin 25 mg tablet 25 mg PO QAM 11/02/24 11/02/24 History (Jardiance) Past Med/Surg History Problem List (Updated 11/02/24 @ 14:21 by Surya Coronel MD) Tooth ache Coronary artery disease History of non-ST elevation myocardial infarction (NSTEMI) (09/2024) S/P coronary artery stent placement (09/2024) Overlapping LUNA x 2 L circumflex Unstable angina B12 deficiency ETD (eustachian tube dysfunction) Conductive hearing loss of left ear with unrestricted hearing of right ear Acid reflux Pressure sensation in both ears Morbid obesity Metabolic syndrome Vitamin D deficiency Tobacco dependence due to cigarettes Fatty infiltration of liver Insomnia Adult situational stress disorder Diabetic peripheral neuropathy associated with type 2 diabetes mellitus Hidradenitis suppurativa Diabetes type 2, uncontrolled Dyslipidemia Osteoarthritis of knees, bilateral Primary hypothyroidism (Chronic) Diverticulitis (Acute) Hypertension (Chronic) Medical History (Updated 11/02/24 @ 14:21 by Surya Coronel MD) Non-ST elevation PA (NSTEMI) (09/2024) Morbid obesity with BMI of 40.0-44.9, adult History of anesthesia reaction BP dropped with endometrial ablation History of kidney stones History of COVID-19 diagnosed 2019--mild symptoms, no symptoms now Surgical History (Updated 10/27/24 @ 09:31 by Purvi Bear DO) S/P coronary artery stent placement (09/2024) Overlapping LUNA x 2 L circumflex Hx of oral surgery (11/28/22) p Incision and Drainage left nasolabial(upper) and lower subperiosteal abscess Removal of teeth 6,7,8,9,10,11,12 and lower teeth 21,22,23,24,25,26,27,28 History of surgical removal of pilonidal cyst History of endometrial ablation History of surgery removal of sweat/hair glands underneath bilateral arms d/t hidradenitis suppurativa History of wisdom tooth extraction H/O dilation and curettage H/O removal of cyst under R eye Family History Aunt Breast cancer Grandfather (Maternal) Myocardial infarction Grandmother (Maternal) History of anesthesia reaction difficulty waking Daughter History of anesthesia reaction under local anesthesia for repair of nerve in her finger--"went unre sponsive and had no neurological function for 20 min" ???, slowly came out it Denies family history of Ovarian cancer Prostate cancer Colorectal cancer Social History Smoking Status: Never smoker Tobacco Type: Cigarettes Age Started Using Tobacco: 15; packs per day: 1; Cigarettes Per Day: 10 a day (advised); Second Hand Exposure: Yes; Do You Dip or Chew Tobacco: No; Hx Alcohol Use: No Hx Substance Use: No Preferred Language: Czech Communication Ability: Effective Visual Impairment: No Limitations Hearing Ability: Hard of Hearing Wireless Sales Representative Required: No Beliefs That Will Affect Care: None marital status: Current Living Situation: Spouse Current Living Situation Comment: lives with , son, daughter, daughter's boyfriend current occupational status: unemployed Feels Safe at Home: Yes Childhood Exposure to Second-Hand Smoke: Yes caffeine: Yes during the past year weight has: remained stable Dental Care, Regularly: No Physical Activity Frequency: Daily Seatbelt Use: always Sunscreen Use: No Assistive Devices: Cane and Walker Review of Systems Review of Systems: All systems reviewed are negative, apart from the ones contained in the history. Physical Exam Physical Exam: The patient is awake, alert and oriented 3, well developed and well nourished, normocephalic and atraumatic, lying in bed and in no acute distress. HEENT--PERRL, EOMI, mucous membranes and oropharynx mildly dry, poor dentition Neck--supple. No JVD. No bruits. Thyroid normal, trachea midline, no a denopathy. Heart--normal S1 and S2. No murmurs, rubs or gallops. Lungs--clear bilaterally, no respiratory distress, no accessory muscle use. Abdomen--normal bowel sounds and soft. Extremities--no cyanosis or clubbing. No edema. Dermatologic--normal skin turgor, normal color, no abnormal lymph nodes, no rash. Neurologic--cranial nerves II through XII grossly intact. Rheumatologic--normal range of motion. Psychiatric--normal affect. Results & Data Results & Data Vital Signs (Past 12 Hours) Vital Signs Temp Pulse Pulse Resp BP BP Pulse Ox 11/02/24 13:21 65 19 133/94 96 11/02/24 11:58 68 20 98 11/02/24 11:58 68 20 158/106 H 96 11/02/24 11:58 96 11/02/24 11:38 75 11/02/24 11:17 98.2 F 75 20 139/87 97 O2 Del Method 11/02/24 13:21 Room Air 11/02/24 11:58 Room Air 11/02/24 11:58 Room Air 11/02/24 11:58 Room Air 11/02/24 11:38 11/02/24 11:17 Room Air PG Care Time/CCT Total # of Minutes Spent Total Time Spent with Patient: Total time spent is greater than 50% in coordination of care (as documented) at patient's floor/unit and/or counseling patient: Coding Level of Care Code 72638 INT INP/OBS CARE MIN Diagnoses Chest pain R07.9 Non-ST elevation PA (NSTEMI) I21.4 Morbid obesity with BMI of 40.0-44.9, adult E66.01; Z68.41 Tooth ache K08.89 Time Spent (min) 75
--- NOTE | 2024-11-02 15:06 | CT Scan Report ---
MAXILLOFACIAL CT WITHOUT CONTRAST CLINICAL HISTORY: Toothache. COMPARISON STUDY: Facial bone CT November 27, 2022. TECHNIQUE: A maxillofacial CT was performed without IV contrast. Coronal and sagittal reformats were viewed. Automated exposure control was utilized for the study. A dose lowering technique was utiliz ed adhering to the principles of ALARA. FINDINGS: Visualized portions of the intracranial contents are unremarkable on unenhanced exam. A mod erate left mastoid effusion has developed since prior CT. There is also a small amount of fluid withi n the left middle ear. Right mastoid air cells are clear. Extensive odontogenic disease is present. M ultiple teeth are absent. There are numerous dental caries and periapical lucencies. No adjacent soft tissue abscess is present. Prominent upper cervical lymph nodes are unchanged. These are likely jaden gn. IMPRESSION: 1. Extensive odontogenic disease with numerous dental caries and periapical lucencies. No adjacent so ft tissue abscess. 2. Moderate left mastoid effusion which has developed since prior CT ACT 112: Negative or not required by law. Electronically signed by: Mansoor Melo M.D. 11/02/2024 3:04 PM
[2024-11-02] MEDS ORDERED: NITROGLYCERIN SL 0.4 MG/TAB TAB SL PRN (15:28)
[2024-11-02] MEDS: AMOXICILLIN/CLAVULANATE 875 MG TAB PO SCH (17:01)
[2024-11-02] MEDS: METOPROLOL SUCC 25MG EXT REL TAB PO SCH (20:27)
[2024-11-02] MEDS ORDERED: [UNRECOGNIZED DRUG - OTHER] SCH (21:00)
[2024-11-03] MEDS: ACETAMINOPHEN 500 MG TAB PO PRN ×2 (01:01→22:25)
[2024-11-03] MEDS: LEVOTHYROXINE SODIUM 75 MCG TABLET PO SCH (05:15)
--- NOTE | 2024-11-03 05:29 | Electrocardiogram Report ---
Test Reason : Blood Pressure : */* mmHG Vent. Rate : 70 BPM Atrial Rate : 70 BPM P-R Int : 132 ms QRS Dur : 86 ms QT Int : 400 ms P-R-T Axes : 28 -3 34 degrees QTcB Int : 432 ms Normal sinus rhythm Normal ECG When compared with ECG of 14-Oct-2024 03:43, No significant change was found Confirmed by Kameron Flores ([id number]) on 11/03/2024 5:29:18 AM Referred By: REFERRED SELF Confirmed By: Kameron Flores
--- NOTE | 2024-11-03 05:30 | Electrocardiogram Report ---
Test Reason : Blood Pressure : */* mmHG Vent. Rate : 72 BPM Atrial Rate : 72 BPM P-R Int : 132 ms QRS Dur : 82 ms QT Int : 382 ms P-R-T Axes : 22 -19 36 degrees QTcB Int : 418 ms Normal sinus rhythm When compared with ECG of 02-Nov-2024 11:32, No significant change was found Confirmed by Kameron Flores ([id number]) on 11/03/2024 5:29:39 AM Referred By: REFERRED SELF Confirmed By: Kameron Flores
[2024-11-03 07:30] LABS: Hematocrit (blood only) 44.7 % (37.0-47.0); Mean Corpuscular Hemoglobin 31.2 pg (25.0-34.0); Mean Corpuscular Hgb Conc 33.6 g/dL (32.0-36.0); Mean Corpuscular Volume 92.9 fL (80.0-100.0); Mean Platelet Volume 10.3 fL (9.4-12.4); Platelet Count 268 K/uL (130-400); RDW Coefficient of Variation 13.2 % (11.5-14.5); Red Blood Count 4.81 M/uL (4.20-5.40); White Blood Count 12.68 K/ul (4.8-10.8)
[2024-11-03 07:44] LABS: BUN Creatinine Ratio 18.8 (10-20); Calcium 9.4 mg/dl (8.6-10.3); Creatinine Clr Calc Pharmacy 95.4 ml/min
[2024-11-03] MEDS: FLUTICASONE PROPIONATE NA SPR 16 GM BTL NAE SCH (08:11)
[2024-11-03] MEDS: PANTOprazole 40 MG TAB PO SCH (08:12)
[2024-11-03] MEDS: ROSUVASTATIN CALCIUM 20 MG TAB PO SCH (08:12)
[2024-11-03] MEDS: ASPIRIN 81 MG ECTAB PO SCH (08:12)
[2024-11-03] MEDS: EMPAGLIFLOZIN 25 MG TAB PO SCH (08:12)
[2024-11-03] MEDS: LOSARTAN POTASSIUM 50 MG TAB PO SCH (08:12)
[2024-11-03] MEDS: CLOPIDOGREL BISULFATE 75 MG TAB PO SCH (08:13)
[2024-11-03] MEDS: DOCUSATE SODIUM 100 MG CAP PO SCH (08:14)
[2024-11-03] MEDS: LANTUS PER UNIT CHARGE SQ SCH (09:06)
[2024-11-03] MEDS: AMPICILLIN/SULBACTAM SOD 3,000 MG/100 ML BAG IV SCH (09:07)
--- NOTE | 2024-11-03 10:29 | Hospitalist Progress Note ---
Date of Service November 03, 2024 Assessment & Plan (1) Chest pain: Plan: Patient presents from the cardiologists office with complaints of chest pain at rest and exersion Recently had stent x2 on 10/11 Here in the ED, trop and EKG wnl will continue Plavix and ASA Nitro Monitor on Tele Cardiology consult (2) Non-ST elevation [place] (NSTEMI): Plan: s/p LUNA x2 on 10/11 continue home meds (3) Tooth ache: Plan: complains of tooth ache, with sinus ache Has had about [address] face shows Extensive odontogenic disease with numerous dental caries and periapical lucencies Also left mastoid effusion consult maxillofacial surgery (4) Morbid obesity with BMI of 40.0-44.9, adult: Plan: Patient was adviced on lifestyle changes Admission and Anticipated Discharge Date Admission Date: November 02, 2024 Subjective patient seen and examined, no new complaints, still has some chest pain Review of Systems Review of Systems: All systems reviewed are negative, apart from the ones contained in the history. Physical Exam Physical Exam: The patient is awake, alert and oriented 3, well developed and well nourished, normocephalic and atraumatic, lying in bed and in no acute distress. HEENT--PERRL, EOMI, mucous membranes and oropharynx mildly dry, poor dentition Neck--supple. No JVD. No bruits. Thyroid normal, trachea midline, no adenopathy. Heart--normal S1 and S2. No murmurs, rubs or gallops. Lungs--clear bilaterally, no respiratory distress, no accessory muscle use. Abdomen--normal bowel sounds and soft. Extremities--no cyanosis or clubbing. No edema. Dermatologic--normal skin turgor, normal color, no abnormal lymph nodes, no rash. Neurologic--cranial nerves II through XII grossly intact. Rheumatologic--normal range of motion. Psychiatric--normal affect. Results & Data Results & Data Vital Signs (Past 12 Hours) Vital Signs Temp Pulse Pulse Resp BP Pulse Ox O2 Del Method 11/03/24 08:00 98.1 F 59 L 18 112/74 94 Room Air 11/03/24 07:12 59 L 11/03/24 02:41 98.2 F 63 18 118/77 97 Room Air 11/03/24 00:20 64 21 97 11/02/24 23:29 65 11/02/24 22:45 98.1 F 63 18 103/69 96 Room Air O2 Flow Rate 11/03/24 08:00 11/03/24 07:12 11/03/24 02:41 11/03/24 00:20 16 11/02/24 23:29 11/02/24 22:45 PG Care Time/CCT Total # of Minutes Spent Total Time Spent with Patient: Total time spent is greater than 50% in coordination of care (as documented) at patient's floor/unit and/or counseling patient: Coding Level of Care Code 97677 SUB INP/OBS CARE 2/35MIN Diagnoses Chest pain R07.9 Non-ST elevation [place] (NSTEMI) I21.4 Tooth ache K08.89 Morbid obesity with BMI of 40.0-44.9, adult E66.01; Z68.41 Time Spent (min) 35
--- NOTE | 2024-11-03 18:21 | Oral/Maxillofacial Consult ---
Date of Consultation November 03, 2024 Assessment & Plan (1) Facial infection: (2) Chronic dental infection: (3) Teeth decayed: History of Present Illness Attending Physician: Surya Coronel MD History of Present Illness Pain and swelling upper and lower remaining teeth 3,4,5,20,29,30 Patient is in pain and will need the removal of these teeth to prevent ongoing pain and swelling Problem: Pain,swelling located---upper and lower right remaining teeth 3,4,5,20,29,30 Finding: There is a carious, fractured and infected tooth at site#: 3,4,5,20,29,30 Plan: Surgical removal of the following tooth/teeth: 3,4,5,20,29,30 After a complete H&P/ vital signs and oral exam was completed the patient will be set up in the OR tomorrow afternoon for the surgical procedure. I&D mucobuccal fold upper right with extraction of teeth # 3,4,5,20,29,30 Informed consent was reviewed and the consent form was signed. I gave them time to discuss any questions and if I explained the surgery that I will be performing to their understanding. I will need the upper and lower left teeth to allow for stabilization of her bite. There teeth will be removed when she is ready for dentures in the future. Plan with GA in OR Dec in the afternoon Allergies Allergy/AdvReac Type Severity Reaction Status Date / Time latex Allergy Intermediate Rash Verified 11/02/24 10:29 codeine AdvReac Intermediate hallucinati Verified 11/02/24 10:29 ons Home Medications Medication Instructions Recorded Confirmed Type BI-PAP 03/12/22 11/02/24 History blood sugar diagnostic #300 ea 07/02/23 11/02/24 Rx lancets #300 ea 07/02/23 11/02/24 Rx fluticasone propionate 50 2 spray intranasal DAILY #16 grams 07/26/23 11/02/24 Rx mcg/actuation nasal spray,suspension (Flonase Allergy Relief) carboxymethylcellulose sodium 1 % 1 drp ophthalmic (eye) BID #15 mL 07/13/24 11/02/24 Rx eye drops (Artificial Tears (carboxymethylcellulose)) pen needle, diabetic 31 gauge x #50 ea 07/27/24 11/02/24 Rx 04/02" blood-glucose sensor (FreeStyle #2 ea 09/15/24 11/02/24 Rx Satya 3 Plus Sensor device) losartan 50 mg tablet 50 mg PO QAM #90 tabs 09/23/24 11/02/24 Rx metoprolol succinate 25 mg 75 mg (3 x 25 mg) PO HS #270 tabs 09/23/24 11/02/24 Rx tablet,extended release 24 hr pantoprazole 40 mg tablet,delayed 40 mg PO DAILY #90 tabs 09/23/24 11/02/24 Rx release (Protonix) aspirin 81 mg tablet,delayed 81 mg PO QAM 30 days #30 tabs 10/14/24 11/02/24 Rx release clopidogrel 75 mg tablet 75 mg PO QAM 30 days #30 tabs 10/14/24 11/02/24 Rx rosuvastatin 20 mg tablet 20 mg PO DAILY 30 days #30 tabs 10/14/24 11/02/24 Rx insulin glargine 100 unit/mL (3 46 unit subcut QAM 10/26/24 11/02/24 History mL) subcutaneous pen (Lantus Solostar U-100 Insulin) levothyroxine 75 mcg tablet 75 mcg PO QAM #90 tabs 10/26/24 11/02/24 Rx nitroglycerin 0.4 mg sublingual See Rx Instructions .Route 10/26/24 11/02/24 Rx tablet .COMPLEX #20 tabs empagliflozin 25 mg tablet 25 mg PO QAM 11/02/24 11/02/24 History (Jardiance) Patient History Medical History Non-ST elevation [place] (NSTEMI) (09/2024) Morbid obesity with BMI of 40.0-44.9, adult History of anesthesia reaction BP dropped with endometrial ablation History of kidney stones History of COVID-19 diagnosed 2019--mild symptoms, no symptoms now Surgical History (Updated 10/27/24 @ 09:31 by Purvi Bear DO) S/P coronary artery stent placement (09/2024) Overlapping LUNA x 2 L circumflex Hx of oral surgery (11/28/22) p Incision and Drainage left nasolabial(upper) and lower subperiosteal abscess Removal of teeth 6,7,8,9,10,11,12 and lower teeth 21,22,23,24,25,26,27,28 History of surgical removal of pilonidal cyst History of endometrial ablation History of surgery removal of sweat/hair glands underneath bilateral arms d/t hidradenitis suppurativa History of wisdom tooth extraction H/O dilation and curettage H/O removal of cyst under R eye Family History Aunt Breast cancer Grandfather (Maternal) Myocardial infarction Grandmother (Maternal) History of anesthesia reaction difficulty waking Daughter History of anesthesia reaction under local anesthesia for repair of nerve in her finger--"went unresponsive and had no neurological function for 20 min" ???, slowly came out it Denies family history of Ovarian cancer Prostate cancer Colorectal cancer Social History Smoking Status: Current every day smoker Tobacco Type: Cigarettes Age Started Using Tobacco: 15; packs per day: 1; Cigarettes Per Day: 5; Second Hand Exposure: Yes; Do You Dip or Chew Tobacco: No; Hx Alcohol Use: No Hx Substance Use: No Preferred Language: Azeri Communication Ability: Effective Visual Impairment: No Limitations Hearing Ability: Hard of Hearing Criminal Researcher Required: No Beliefs That Will Affect Care: None marital status: Current Living Situation: Spouse Current Living Situation Comment: lives with , son, daughter, daughter's boyfriend current occupational status: unemployed Feels Safe at Home: Yes Childhood Exposure to Second-Hand Smoke: Yes caffeine: Yes during the past year weight has: remained stable Dental Care, Regularly: No Physical Activity Frequency: Daily Seatbelt Use: always Sunscreen Use: No Assistive Devices: None Results & Data Vital Signs (Past 12 Hours) Vital Signs Temp Pulse Pulse Resp BP Pulse Ox O2 Del Method 11/03/24 15:31 36.8 C 61 18 98/65 L 94 Room Air 11/03/24 14:17 65 11/03/24 13:45 36.6 C 60 18 112/77 96 Room Air 11/03/24 08:00 36.7 C 59 L 18 112/74 94 Room Air 11/03/24 07:12 59 L PG Care Time/CCT Total # of Minutes Spent Total Time Spent with Patient: Total time spent is greater than 50% in coordination of care (as documented) at patient's floor/unit and/or counseling patient: Coding Level of Care Code 96520 IN/OBS CONSULT LVL 2,35M Diagnoses Facial infection L08.9 Chronic dental infection K04.7 Teeth decayed K02.9
--- NOTE | 2024-11-03 18:25 | XCELERA ---
[id number]
--- NOTE | 2024-11-03 20:37 | Cardiology Progress Note ---
Date of Service November 03, 2024 Assessment & Plan (1) CAD (coronary atherosclerotic disease): (2) Precordial chest pain: Plan 1. Chest pain. More recent symptoms are mild and fleeting. Atypical for angina. Despite a history of exertional sx, no sx while on treadmill today. No ischemia at a low workload. I don't think her chest pain is related to CAD or ischemia. No documented arrhythmia. It seems her symptoms have nearly resolved and I think she could be discharged without a change in her cardiac regimen. 2. CAD: Known residual LAD disease. Will continue aggressive secondary prevention. We discussed cardiac rehab and I will make a referral. Admission and Anticipated Discharge Date Admission Date: November 02, 2024 Subjective Feeling better overall. Fewer episodes of "squeezing" pain. Very mild and fleeting at this point. Review of Systems Review of Systems: Per HPI Physical Exam Physical Exam: She is alert and oriented x3. Mood affect appear normal. She answered all questions appropriately. Obese HEENT: Sclerae are anicteric. Pupils are equal and reactive to light and accommodation. Extraocular movements were intact. Neuro: Cranial nerves intact Lungs: Lungs are clear to auscultation bilaterally. There are no rales wheezes or rhonchi. She has normal respiratory effort without use of accessory muscles. There is normal pulmonary excursion. Cardiac: The rhythm was regular. S1 and S2 were normal. There are no murmurs on examination. The PMI was not markedly displaced on palpation. Extremities: Patient has bilateral radial pulses that are equal in intensity. There is no evidence cyanosis or clubbing. There was no evidence of significant peripheral edema bilaterally. Skin: There are no rashes noted on examination today. Results & Data Vital Signs (Past 12 Hours) Vital Signs Temp Pulse Pulse Resp BP Pulse Ox O2 Del Method 11/03/24 19:26 36.7 C 59 L 18 111/71 95 Room Air 11/03/24 15:31 36.8 C 61 18 98/65 L 94 Room Air 11/03/24 14:17 65 11/03/24 13:45 36.6 C 60 18 112/77 96 Room Air Laboratory Results Abnormal Lab Results 11/03/24 11/03/24 11/03/24 07:07 13:07 17:35 POC Glucose 117 H 121 H Troponin I High Sens 4.0 11/03/24 11/04/24 20:05 08:20 POC Glucose 159 H 130 H Troponin I High Sens Diagnostic Findings Exercise echocardiogram performed today did not endorse symptoms of chest pain. No evidence of inducible ischemia at the workload achieved. PG Care Time/CCT Total # of Minutes Spent Total Time Spent with Patient: Total time spent is greater than 50% in coordination of care (as documented) at patient's floor/unit and/or counseling patient: Coding Level of Care Code 24939 SUB INP/OBS CARE 2/35MIN Diagnoses CAD (coronary atherosclerotic disease) I25.10 Associated angina: unspecified whether angina present Coronary Disease-Associated Artery/Lesion type: unspecified vessel or lesion type [place] vs. transplanted heart: [place] heart Precordial chest pain R07.2 (1) CAD (coronary atherosclerotic disease) Associated angina: unspecified whether angina present Coronary Disease- Associated Artery/Lesion type: unspecified vessel or lesion type [place] vs. transplanted heart: [place] heart Qualified Code(s): I25.10 - Atherosclerotic he art disease of [place] coronary artery without angina pectoris
[2024-11-04] MEDS: bisacodyL 10 MG SUPP PR STA (08:37)
--- NOTE | 2024-11-04 10:54 | Hospitalist Progress Note ---
Date of Service November 04, 2024 Assessment & Plan (1) Chest pain: Plan: Patient presents from the cardiologists office with complaints of chest pain at rest and exersion Recently had stent x2 on 10/11 trop and EKG wnl will continue Plavix and ASA Nitro Monitor on Tele Cardiology evaluated, no plans for any procedure. Stress test was normal (2) Non-ST elevation [place] (NSTEMI): Plan: Recent NSTEMI occurring 10/13/2024 treated with PCI s/p LUNA x2 on 10/11 continue home meds (3) Tooth ache: Plan: complains of tooth ache, with sinus ache Has had about [address] face shows Extensive odontogenic disease with numerous dental caries and periapical lucencies Also left mastoid effusion consult maxillofacial surgery, plan for OR extraction of carious and broken teeth today continue Unasyn (4) Morbid obesity with BMI of 40.0-44.9, adult: Plan: Patient was adviced on lifestyle changes Plan hopefully d/c in the next 24 hrs Admission and Anticipated Discharge Date Admission Date: November 04, 2024 Subjective scheduled for surgical removal of her fractured and carious teeth today Review of Systems Review of Systems: All systems reviewed are negative, apart from the ones contained in the history. Physical Exam Physical Exam: The patient is awake, alert and oriented 3, well developed and well nourished, normocephalic and atraumatic, lying in bed and in no acute distress. HEENT--PERRL, EOMI, mucous membranes and oropharynx mildly dry, poor dentition Neck--supple. No JVD. No bruits. Thyroid normal, trachea midline, no adenopathy. Heart--normal S1 and S2. No murmurs, rubs or gallops. Lungs--clear bilaterally, no respiratory distress, no accessory muscle use. Abdomen--normal bowel sounds and soft. Extremities--no cyanosis or clubbing. No edema. Dermatologic--normal skin turgor, normal color, no abnormal lymph nodes, no rash. Neurologic--cranial nerves II through XII grossly intact. Rheumatologic--normal range of motion. Psychiatric--normal affect. Results & Data Results & Data Vital Signs (Past 12 Hours) Vital Signs Temp Pulse Pulse Resp BP Pulse Ox O2 Del Method 11/04/24 07:27 98.1 F 79 18 137/81 96 Room Air 11/04/24 07:18 59 L 11/04/24 02:46 97.9 F 60 18 118/80 95 Room Air, CPAP 11/04/24 02:20 60 17 94 11/03/24 23:17 Room Air, CPAP PG Care Time/CCT Total # of Minutes Spent Total Time Spent with Patient: Total time spent is greater than 50% in coordination of care (as documented) at patient's floor/unit and/or counseling patient: Coding Level of Care Code 39191 SUB INP/OBS CARE 2/35MIN Diagnoses Chest pain R07.9 Non-ST elevation [place] (NSTEMI) I21.4 Tooth ache K08.89 Morbid obesity with BMI of 40.0-44.9, adult E66.01; Z68.41 Time Spent (min) 35
[2024-11-04] MEDS ORDERED: Nursing to Pharmacy Communication SCH (13:00)
--- NOTE | 2024-11-04 13:05 | Anesthesiology Consultation ---
Date of Service November 04, 2024 Assessment & Plan Chart Review Chart Review: Acceptable Risk for Surgery and Patient NOT seen in Pre Admission Testing History Surgery Operation Date: 11/04/24 07:00 Proposed Procedures p Right Upper Jaw Incision and Drainage - Anshul Delacruz DMD s Teeth Extraction 3 4 5 30 - Anshul Delacruz DMD Height/Weight Height: 5 ft 8 in Weight: 126.2 kg Allergies Allergy/AdvReac Type Severity Reaction Status Date / Time latex Allergy Intermediate Rash Verified 11/02/24 10:29 codeine AdvReac Intermediate hallucinati Verified 11/02/24 10:29 ons Medications Home Medications Medication Instructions Recorded Confirmed Last Taken BI-PAP 03/12/22 11/02/24 Unknown blood sugar diagnostic #300 ea 07/02/23 11/02/24 Unknown lancets #300 ea 07/02/23 11/02/24 Unknown fluticasone propionate 50 2 spray intranasal DAILY #16 grams 07/26/23 11/02/24 Unknown mcg/actuation nasal spray,suspension (Flonase Allergy Relief) carboxymethylcellulose sodium 1 % 1 drp ophthalmic (eye) BID #15 mL 07/13/24 11/02/24 11/02/24 eye drops (Artificial Tears (carboxymethylcellulose)) pen needle, diabetic 31 gauge x #50 ea 07/27/24 11/02/24 Unknown 04/02" blood-glucose sensor (FreeStyle #2 ea 09/15/24 11/02/24 Unknown Satya 3 Plus Sensor device) losartan 50 mg tablet 50 mg PO QAM #90 tabs 09/23/24 11/02/24 11/02/24 metoprolol succinate 25 mg 75 mg (3 x 25 mg) PO HS #270 tabs 09/23/24 11/02/24 11/01/24 tablet,extended release 24 hr pantoprazole 40 mg tablet,delayed 40 mg PO DAILY #90 tabs 09/23/24 11/02/24 11/02/24 release (Protonix) aspirin 81 mg tablet,delayed 81 mg PO QAM 30 days #30 tabs 10/14/24 11/02/24 11/02/24 release clopidogrel 75 mg tablet 75 mg PO QAM 30 days #30 tabs 10/14/24 11/02/24 11/02/24 rosuvastatin 20 mg tablet 20 mg PO DAILY 30 days #30 tabs 10/14/24 11/02/24 11/02/24 insulin glargine 100 unit/mL (3 46 unit subcut QAM 10/26/24 11/02/24 11/02/24 mL) subcutaneous pen (Lantus Solostar U-100 Insulin) levothyroxine 75 mcg tablet 75 mcg PO QAM #90 tabs 10/26/24 11/02/24 11/02/24 nitroglycerin 0.4 mg sublingual See Rx Instructions .Route 10/26/24 11/02/24 Unknown tablet .COMPLEX #20 tabs empagliflozin 25 mg tablet 25 mg PO QAM 11/02/24 11/02/24 11/02/24 (Jardiance) Active Medications Generic Name Dose Route Start Last Admin Trade Name Freq PRN Reason Stop Dose Admin Acetaminophen 1,000 mg 11/03/24 21:06 11/03/24 22:25 Acetaminophen 500 Mg Tab PO 12/03/24 21:05 1,000 mg Q8H PRN Administration Pain or Fever Amoxicillin/Clavulanate Potassium 1 tab 11/02/24 17:00 11/02/24 17:01 Amoxicillin/Clavulanate 875 Mg Tab PO 12/14/24 16:59 1 tab BIDM BHUPENDRA Administration Protocol Aspirin 81 mg 11/03/24 09:00 11/04/24 08:35 Aspirin 81 Mg Ectab PO 12/03/24 08:59 81 mg QAM BHUPENDRA Administration Clopidogrel Bisulfate 75 mg 11/03/24 09:00 11/04/24 08:34 Clopidogrel Bisulfate 75 Mg Tab PO 12/03/24 08:59 75 mg QAM BHUPENDRA Administration Docusate Sodium 100 mg 11/03/24 09:00 11/04/24 08:33 Docusate Sodium 100 Mg Cap PO 12/03/24 08:59 100 mg BID BHUPENDRA Administration Empagliflozin 25 mg 11/03/24 09:00 11/04/24 08:45 Empagliflozin 25 Mg Tab PO 12/03/24 08:59 25 mg DAILY BHUPENDRA Administration Fluticasone Propionate 2 sprays 11/03/24 09:00 11/04/24 08:35 Fluticasone Propionate Na Spr 16 Gm Btl SHIN 12/03/24 08:59 Not Given DAILY BHUPENDRA Ampicillin Sodium/Sulbactam Sodium 3,000 mg in 100 mls @ 200 mls/hr 11/03/24 08:00 11/04/24 11:06 Unasyn IV 12/15/24 07:59 Infused Q6H BHUPENDRA Infusion Lactated Ringer's 1,000 mls @ 15 mls/hr 11/04/24 13:15 11/04/24 13:15 Lr IV 11/05/24 13:14 15 mls/hr .Q24H BHUPENDRA Administration Insulin Glargine 53 units 11/03/24 09:00 11/04/24 08:33 Lantus Per Unit Charge SQ 12/03/24 08:59 20 units QAM BHUPENDRA Administration Levothyroxine Sodium 75 mcg 11/03/24 06:30 11/04/24 06:15 Levothyroxine Sodium 75 Mcg Tablet PO 12/03/24 06:29 75 mcg DAILYBB BHUPENDRA Administration Losartan Potassium 50 mg 11/03/24 09:00 11/04/24 08:25 Losartan Potassium 50 Mg Tab PO 12/03/24 08:59 Not Given QAM BHUPENDRA Metoprolol Succinate 75 mg 11/02/24 21:00 11/03/24 20:14 Metoprolol Succ 25mg Ext Rel Tab PO 12/02/24 20:59 Not Given HS BHUPENDRA Pantoprazole Sodium 40 mg 11/03/24 09:00 11/04/24 08:34 Pantoprazole 40 Mg Tab PO 12/03/24 08:59 40 mg DAILY BHUPENDRA Administration Rosuvastatin Calcium 20 mg 11/03/24 09:00 11/04/24 08:35 Rosuvastatin Calcium 20 Mg Tab PO 12/03/24 08:59 20 mg DAILY BHUPENDRA Administration NPO Date Last Intake of Fluids: 11/03/24 Time Last Intake of Fluids: 19:30 Date Last Intake of Solids: 11/03/24 Time Last Intake of Solids: 19:30 Past Medical History Medical History Non-ST elevation [place] (NSTEMI) (09/2024) Morbid obesity with BMI of 40.0-44.9, adult History of anesthesia reaction BP dropped with endometrial ablation History of kidney stones History of COVID-19 diagnosed 2019--mild symptoms, no symptoms now Past Family History Family History Aunt Breast cancer Grandfather (Maternal) Myocardial infarction Grandmother (Maternal) History of anesthesia reaction difficulty waking Daughter History of anesthesia reaction under local anesthesia for repair of nerve in her finger--"went unresponsive and had no neurological function for 20 min" ???, slowly came out it Denies family history of Ovarian cancer Prostate cancer Colorectal cancer Past Surgical History Surgical History S/P coronary artery stent placement (09/2024) Overlapping LUNA x 2 L circumflex Hx of oral surgery (11/28/22) p Incision and Drainage left nasolabial(upper) and lower subperiosteal abscess Removal of teeth 6,7,8,9,10,11,12 and lower teeth 21,22,23,24,25,26,27,28 History of surgical removal of pilonidal cyst History of endometrial ablation History of surgery removal of sweat/hair glands underneath bilateral arms d/t hidradenitis suppurativa History of wisdom tooth extraction H/O dilation and curettage H/O removal of cyst under R eye Social History Smoking Status: Current every day smoker tobacco type: cigarettes Smoking cigarettes per day: 5 Do You Dip or Chew Tobacco: No Hx Alcohol Use: No Alcohol type: beer alcohol intake frequency: a few times a week Hx Substance Use: No substance use type: does not use Physical Exam Vital Signs Last Vital Signs Temp 36.8 C 11/04/24 12:46 Pulse 72 11/04/24 12:46 Resp 20 11/04/24 12:46 BP 110/71 11/04/24 12:46 Pulse Ox 97 11/04/24 12:46 O2 Del Method Room Air 11/04/24 12:46 O2 Flow Rate 16 11/03/24 00:20 Testing Laboratory Results 11/03/24 07:07 11/03/24 07:07 PT 10.9 Seconds (9.0-12.0) 11/02/24 11:30 INR 1.0 (0.9-1.1) 11/02/24 11:30 APTT 25 Seconds (21-31) 11/02/24 11:30 11/04/24 11/04/24 12:08 08:20 POC Glucose 108 H 130 H
[2024-11-04] MEDS: LACTATED RINGER'S 1,000 ML IV SCH (13:15)
[2024-11-04] MEDS ORDERED: ATROPINE SULFATE 0.1 MG/ML 10ML SYR IV PRN (13:17)
[2024-11-04] MEDS ORDERED: ePHEDrine sulfate 50 MG/ML AMP IV PRN (13:17)
[2024-11-04] MEDS ORDERED: HYDROmorphone INJ 1 MG/ML SYRINGE IV PRN (13:17)
[2024-11-04] MEDS ORDERED: ONDANSETRON INJ 2 MG/ML 2 ML VIAL IV PRN (13:17)
--- NOTE | 2024-11-04 13:45 | History & Physical Bridge Note ---
Date of Service November 04, 2024 History & Physical Bridge Note I have examined the patient, reviewed the History & Physical and in the interval since the performance of the History & Physical I have noted the following changes of clinical significance: no changes noted OK for the I&D as planned
[2024-11-04] MEDS: CHLORHEXIDINE GLUCONATE 0.12% 480 ML MT ONE (14:22)
[2024-11-04] MEDS: SURGICEL ABSORB HEMOSTAT 2IN X 14IN TOP ONE (14:40)
[2024-11-04] MEDS: BUPIVACAINE/EPINEPHRINE 0.5% 1:200,000 1.8 ML CARP ONE (14:56)
--- NOTE | 2024-11-04 15:06 | Post Operative Brief Note ---
PG Immediate Post Op with CF Date of Surgery November 04, 2024 Pre & Post Diagnosis Operation Date: 11/04/24 07:00 Pre-Op Diagnosis: 1. Facial infection, 2. Chronic dental infection, 3. Teeth decayed Post-Op Diagnosis: 1. Facial infection, 2. Chronic dental infection, 3. Teeth decayed I identified the patient and participated in the time-out.: Yes Procedure Operation Date: 11/04/24 07:00 Actual Procedures p Right Upper Jaw Incision and Drainage(Right) - Anshul Delacruz DMD s Teeth Extraction #3, #4,#5, #20, #29, #30(Not Applicable) - Anshul Delacruz DMD Surgeon Anshul Delacruz DMD Miner Assistant none Estimated Blood Loss 5 Findings Consistent with Post-Op Diagnosis infected mucobuccal fold from infected and fractured upper right teeth . Specimens Specimen Description: no specimens per surgeon Anesthesia Type General Disposition Accompanied Patient To Recovery: Yes
[2024-11-04] MEDS: fentaNYL citrate PF 100 MCG/2 ML VIAL IV PRN (15:24)
--- NOTE | 2024-11-04 16:30 | Anesthesiology Progress Note ---
Date of Service November 04, 2024 Anesthesia Post Procedure Vital Signs Vital Signs: Temp Pulse Pulse Pulse Resp BP Pulse Ox 11/04/24 15:45 36.6 C 62 15 144/91 H 94 11/04/24 15:35 63 17 134/77 95 11/04/24 15:25 67 21 133/82 97 11/04/24 15:15 70 21 137/79 98 11/04/24 15:09 36 C L 77 24 124/65 96 11/04/24 12:46 36.8 C 72 20 110/71 97 11/04/24 11:17 36.8 C 75 18 128/76 95 11/04/24 07:27 36.7 C 79 18 137/81 96 11/04/24 07:18 59 L 11/04/24 02:46 36.6 C 60 18 118/80 95 11/04/24 02:20 60 17 94 11/03/24 23:17 11/03/24 22:32 36.5 C 68 18 135/82 96 11/03/24 22:25 57 L 20 98 11/03/24 22:00 62 11/03/24 19:26 36.7 C 59 L 18 111/71 95 O2 Del Method O2 Flow Rate 11/04/24 15:45 Nasal Cannula 2 11/04/24 15:35 Oxymask 2 11/04/24 15:25 Oxymask 8 11/04/24 15:15 Oxymask 8 11/04/24 15:09 Oxymask 8 11/04/24 12:46 Room Air 11/04/24 11:17 Room Air 11/04/24 07:27 Room Air 11/04/24 07:18 11/04/24 02:46 Room Air, CPAP 11/04/24 02:20 11/03/24 23:17 Room Air, CPAP 11/03/24 22:32 Room Air 11/03/24 22:25 11/03/24 22:00 11/03/24 19:26 Room Air Pain Intensity Bilateral Mouth: Pain Intensity: 2 Right Mouth: Pain Intensity: 6 Transfer of Care Handoff Completed per policy Notes Mental Status: alert / awake / arousable and participated in evaluation Patient Amnestic to Procedure: Yes Nausea / Vomiting: adequately controlled Pain: adequately controlled Airway Patency, RR, SpO2: stable & adequate BP & HR: stable & adequate Hydration State: stable & adequate Anesthetic Complications: no major complications apparent
--- NOTE | 2024-11-04 18:05 | Oral/Maxillofacial Progress Nt ---
Date of Service November 04, 2024 Assessment & Plan Admission and Anticipated Discharge Date Admission Date: November 04, 2024 Subjective Post op oral surgery She is doing well post op Minimal pain and swelling, no bleeding OK for discharge as per medicine I will see Tiffanie in my office for follow up. Results & Data Vital Signs (Past 12 Hours) Vital Signs Temp Pulse Pulse Pulse Resp BP Pulse Ox 11/04/24 15:45 36.6 C 62 15 144/91 H 94 11/04/24 15:35 63 17 134/77 95 11/04/24 15:25 67 21 133/82 97 11/04/24 15:15 70 21 137/79 98 11/04/24 15:09 36 C L 77 24 124/65 96 11/04/24 12:46 36.8 C 72 20 110/71 97 11/04/24 11:17 36.8 C 75 18 128/76 95 11/04/24 07:27 36.7 C 79 18 137/81 96 11/04/24 07:18 59 L O2 Del Method O2 Flow Rate 11/04/24 15:45 Nasal Cannula 2 11/04/24 15:35 Oxymask 2 11/04/24 15:25 Oxymask 8 11/04/24 15:15 Oxymask 8 11/04/24 15:09 Oxymask 8 11/04/24 12:46 Room Air 11/04/24 11:17 Room Air 11/04/24 07:27 Room Air 11/04/24 07:18 PG Care Time/CCT Total # of Minutes Spent Total Time Spent with Patient: Total time spent is greater than 50% in coordination of care (as documented) at patient's floor/unit and/or counseling patient: Coding Level of Care Code None
[2024-11-04] MEDS: MoRPHine SULFATE 2 MG/ML CARP IV STA (20:52)
[2024-11-05 02:55] VITALS: RESP 18
[2024-11-05 06:54] LABS: Hematocrit (blood only) 45.4 % (37.0-47.0); Hemoglobin 15.1 g/dl (12.0-16.0); Mean Corpuscular Hemoglobin 30.9 pg (25.0-34.0); Mean Corpuscular Hgb Conc 33.3 g/dL (32.0-36.0); Mean Platelet Volume 10.2 fL (9.4-12.4); Platelet Count 286 K/uL (130-400); RDW Coefficient of Variation 12.9 % (11.5-14.5); RDW Standard Deviation 44.6 fL (36.4-46.3); Red Blood Count 4.88 M/uL (4.20-5.40)
[2024-11-05 07:13] LABS: BUN Creatinine Ratio 17.3 (10-20); Calcium 9.3 mg/dl (8.6-10.3); Creatinine Clr Calc Pharmacy 94.6 ml/min; Potassium 4.4 mmol/L (3.5-5.1)
[2024-11-05 07:41] VITALS: TEMP 97.3; O2SAT 97
[2024-11-05 09:36] VITALS: BP 152/79
[2024-11-05 10:14] VITALS: PULSE 64
--- NOTE | 2024-11-05 11:31 | Discharge Summary ---
Date of Service November 05, 2024 Admission HPI Per Admitting Provider This is a 54 Yo F with a hx of CAD, s/p stent, Morbid obesity, Type 2 DM, HTN, who was sent to [facility] by her administrative judge. Patient went to see her administrative judge today for routine follow up, but also complained of central chest pain, worse on exersion. Of note she had a LUNA x2 on 10/11 and has been compliant with her meds. When I saw her in the ED, she said her pain is central, present at rest and even on exertion. She also complained of sinus ache and tooth ache. She has had about 17 of her teeth pulled at some point. Vital sign are stable in the ED. Trop and EKG wnl. patient will be admitted to the hospital and monitored on tele Admission Exam (Per Admitting) Constitutional The patient is awake, alert and oriented 3, well developed and well nourished, normocephalic and atraumatic, lying in bed and in no acute distress. HEENT--PERRL, EOMI, mucous membranes and oropharynx mildly dry Neck--supple. No JVD. No bruits. Thyroid normal, trachea midline, no adenopathy. Heart--normal S1 and S2. No murmurs, rubs or gallops. Lungs--clear bilaterally, no respiratory distress, no accessory muscle use. Abdomen--normal bowel sounds and soft. Extremities--no cyanosis or clubbing. No edema. Dermatologic--normal skin turgor, normal color, no abnormal lymph nodes, no rash. Neurologic--cranial nerves II through XII grossly intact. Rheumatologic--normal range of motion. Psychiatric--normal affect. Discharge Data Consultations 11/02/24 14:03 ED Decision to Admit Stat 11/02/24 14:07 Consult Cardiology Routine 11/03/24 07:54 Consult Oromaxillofacial Surgery Routine Procedures Performed Operation Date: 11/04/24 07:00 Actual Procedures p Right Upper Jaw Incision and Drainage(Right) - Anshul Delacruz DMD s Teeth Extraction #3, #4,#5, #20, #29, #30(Not Applicable) - Anshul Delacruz DMD Hospital Course (1) Chest pain: Patient presents from the cardiologists office with complaints of chest pain at rest and exersion Recently had stent x2 on 10/11 trop and EKG wnl will continue Plavix and ASA Nitro Monitor on Tele Cardiology evaluated, no plans for any procedure. Stress test was normal (2) Non-ST elevation GA (NSTEMI): Recent NSTEMI occurring 10/13/2024 treated with PCI s/p LUNA x2 on 10/11 continue home meds (3) Tooth ache: complains of tooth ache, with sinus ache Has had about [address] face shows Extensive odontogenic disease with numerous dental caries and periapical lucencies Also left mastoid effusion consult maxillofacial surgery, now s/p extraction of carious and broken teeth transition to PO Augmentin for 5 days (4) Morbid obesity with BMI of 40.0-44.9, adult: Patient was adviced on lifestyle changes Plan d/c home. [place] [facility] [place] Level of Care Code 50613 INP/OBS DISCH >30 MIN Diagnoses Chest pain R07.9 Non-ST elevation GA (NSTEMI) I21.4 Tooth ache K08.89 Morbid obesity with BMI of 40.0-44.9, adult E66.01; Z68.41 Time Spent (min) 35
--- NOTE | 2024-11-07 13:38 | Operative Report ---
PG Post Operative Report Pre & Post Diagnosis Operation Date: 11/04/24 07:00 Pre-Op Diagnosis: 1. Facial infection, 2. Chronic dental infection, 3. Teeth decayed Post-Op Diagnosis: 1. Facial infection, 2. Chronic dental infection, 3. Teeth decayed I identified the patient and participated in the time-out.: Yes Procedure Operation Date: 11/04/24 07:00 Actual Procedures p Right Upper Jaw Incision and Drainage(Right) - Anshul Delacruz DMD s Teeth Extraction #3, #4,#5, #20, #29, #30(Not Applicable) - Anshul Delacruz DMD Surgeon Anshul Delacruz DMD Double Bass Player none Estimated Blood Loss 5 Findings Consistent with Post-Op Diagnosis Specimens none Drains none Anesthesia Type General Complications none Disposition Accompanied Patient To Recovery: Yes Indications infection upper right side, facial swelling Description of Procedure p Incision and Drainage left maxillary vestibule and infraorbital space Abscess; - Anshul Delacruz DMD Right Upper Jaw Incision and Drainage(Right) - Anshul Delacruz DMD s Teeth Extraction #3, #4,#5, #20, #29, #30(Not Applicable) - Anshul Delacruz DMD ICD 10 K12.2 , L03.211, K02.6, K08.3 CPT 67115 I & D of deep subcutaneous abscess of the inferior orbital and vestibular space of right maxilla [id number] x 6 for surgical extraction of #3, #4,#5, #20, #29, #30 Once cleared for surgery general anesthesia was achieved, the eyes were protected by the anesthesia dept criteria. A time out was take for patient ID, antibiotics, equipment and position verification once all agreed the procedure began. Local anesthesia using Marcaine with a vasoconstrictor ( 1.8 ml per site) given into left posterior maxilla A throat pack was placed after the oral cavity was irrigated with saline. Once a surgical level of anesthesia was obtained and the local anesthesia was given time for the blocks the surgery was started. I turned my attention to the infection which was located in the in the left cheek,left vestibule, left tuberosity area, Infraorbital fossa area Incision and Drainage I & D of deep subcutaneous abscess of the inferior orbital and vestibular space of right maxilla Using a 15 blade an incision was made in the posterior aspect of the vestibular area upper right side. Once the incision was made a lot of pus extruded from the site. A curved hemostat was carefully placed superior into the infected space to drain the infraorbital space. To gain access to the pocket of pus in the cheek another incision was made in the vestibule. This allowed further drainage to escape. I palpated the face and cheek area and no further drainage was expressed. The area was irrigated with at least 100 ml of NS solution. I now turned my attention to remove the dental extraction of the grossly infected and decayed teeth. Upper and Lower abscessed teeth #3, #4,#5, #20, #29, #30-- [id number] x 6 The full thick Muco-periosteal flap was made on the facial aspect from #2-6, # 28-31 and around the retained tooth # 20 . The large flaps were reflected to expose the the subperiosteal space and the bone adjacent to the upper and lower right side teeth as well as the retained root # 20 The drill and rongeur was used to remove bone, the teeth were removed with a 301 elevator and dental forceps, there was a large amount of granulation tissue on the apex of the upper teeth and some more pus that was expressed. Given that she was on Plavix and ASA I placed surgical in each of the sockets and sutured each socket with a 2-0 Chromic. When all the teeth were removed I inspected the sites to insure all bleeding was controlled. I removed the throat pack and suctioned the throat. Bilateral gauze pressure dressings were placed. All instrument and sponge count was correct. The patient was allowed to awake from the anesthesia. Once full awake the anesthesia tube was removed and the patient was taken to the recovery room with all vital sign stable. The patient tolerated the surgery very well. I will follow the patient in my office, Rx and instructions will be given upon discharge. I attest to the content of the Intraoperative Record and any orders documented therein. Any exceptions are noted below.
== END 2024-11-05 10:58 | disposition home or self-care (01) | DRG 281 ==
LOC: ED 11:09 → 2N 11:09